=== PATIENT | female | born 1960 | race Two or more races ===

== ENCOUNTER 2024-05-06 21:45 | Inpatient (IN) | payer MEDICAID, SELFPAY ==
[2024-05-06] VITALS (7 sets, daily range): BP systolic 153–167; BP diastolic 85–94; BMI 28.4
--- NOTE | 2024-05-06 19:53 | ED.GENMED ---
History of Present Illness
General
Chief Complaint: Cold/Flu/URI Symptoms
Time Seen by Provider: 05/06/24 19:48
History of Present Illness
History of Present Illness:
64-year-old female with history of insulin-dependent diabetes presents to the emergency department for evaluation of dry cough, fever, and shortness of breath for the past 2 days. She also reports mild sore throat and stuffy nose. No ill contacts
at home. Denies chest pain or leg swelling. Cough is dry and nonproductive. Also notes nausea and vomiting, no diarrhea. Non-smoker
Review of Systems
Review of Systems
Allergies reviewed?: Yes
All Other Systems: ROS reviewed and negative except as documented in HPI and ROS
Phy Exam
Physical Exam
Physical Exam:
GEN: Ill-appearing, acute distress
Eyes: PERRLA, EOMs intact, no scleral icterus
HENT: NCAT, oral mucosa moist, no JVD
Lungs: Tachypneic with accessory muscle use, expiratory crackles heard throughout all lung garza, no wheezes
Cardiac: Tachycardic, regular, no murmur
Abdomen: S, NT, ND, NABS, no masses or hepatosplenomegaly
Neuro: AO x 3
MSK: No gross deformity or ecchymosis. No edema. No digital clubbing
Skin: No rashes, petechiae. Normal color, no pallor or jaundice.
Psych: Calm, cooperative, proper hygiene
Sepsis
Sepsis Screening
Sepsis Assessment: Severe Sepsis
Sepsis Screening: Worsening O2 Saturation
Sepsis Screen
Sepsis Screen: Severe Sepsis
Date: 05/06/24
Time: 22:05
Course
Orders/Labs/Results
Orders:
Orders
05/06/24 19:52
CR Chest Portable - 1 View Urgent
Comment:
Reason For Exam: SOB/hypoxia
Reason Study Needs to be Portable: Other
05/06/24 20:02
COVID-19 Antigen Urgent
Source: Nasal Swab
Complete Blood Count/With Diff Urgent
Lactic Acid Q4H
Comment: CANCEL 2nd LACTIC ACID IF 1st LACTIC ACID IS LESS THAN 2
Influenza A+B Rapid Molecular Urgent
CHANDNI Source: Nasal Swab
Specimen Description:
05/06/24 20:03
Comprehensive Metabolic Panel Urgent
NT-proBNP Urgent
Procalcitonin Urgent
PCT Algorithmm Indication: Respiratory
Troponin I Urgent
Blood Culture Routine
CHANDNI Source: Blood/Venous
Specimen Description:
Blood Culture Urgent
CHANDNI Source: Blood/Venous
Specimen Description:
05/06/24 20:42
Lactated Ringers [Lr] 1,000 ml IV BOLUS
05/06/24 20:49
Acetone [B-Hydroxybutyrate] Urgent
Venous Blood Gas Urgent
%Oxygen/Room Air: 79
05/06/24 20:55
Cefepime HCl [Maxipime] 2,000 mg IV NOW STA
Doxycycline [Vibramycin] 100 mg PO NOW STA
05/06/24 21:13
Electrocardiogram (*1) Urgent
Reason for Study: Shortness of Breath
EKG- Treatment ONCE
05/06/24 21:14
Doxycycline Hyclate [Vibramycin] 100 mg 0.9% Sodium Chloride 250 ml [Nss] 250 ml IV NOW
05/06/24 21:15
Acetaminophen [Tylenol] 1,000 mg PO NOW STA
05/06/24 21:27
Admit/Transfer Patient As Directed
Co-Sign Provider:
Level of Care: Inpatient admission
Assign to:: ICU
Physician / Group: hospitalist
Diagnosis: multifocal pneumonia
Reason for Hospitalization: hypoxic respiratory failure
Expected length of stay greater than two midnights?: Yes
ELOS- Estimated Length of Stay in days: 2
I certify the patient meets the requirements for IP care: Yes
PRN Pain Medication Management As Directed
May give lesser potent ordered pain med per pt: Yes
preference::
Protocol:: Medication orders for pain may be administered in a
manner that supports deferring to patient preference
when the pt is:
- Requesting an ordered lesser potent pain medication.
Least to most potent pain medications are defined
as: acetaminophen < NSAID < tramadol < opioids
(morphine, oxycodone, hydromorphone).
- Requesting a lesser dose of the same medication IF
ORDERED.
- Requesting a less intrusive route of administration
if both routes are prescribed by the provider (PO <
IV).
05/06/24 21:28
Code Status As Directed
Resuscitation Status: Full Code
05/06/24 22:00
Flush (0.9% Sodium Chloride) [Flush (Nss)] See Dose Instructions IV PER PROTOCOL
Abnormal Lab Results
05/06/24 05/06/24 05/06/24
20:02 20:03 20:49
WBC 11.1 H 10^3/uL
(4.8-10.8)
RBC 3.67 L 10^6/uL
(4.20-5.40)
Hgb 10.2 L g/dL
(12.0-16.0)
Hct 30.1 L %
(37.0-47.0)
MPV 10.9 H fL
(7.4-10.4)
Abs Immat Gran (auto) 0.1 H 10^3/uL
(0-0.05)
Absolute Neuts (auto) 8.6 H 10^3/uL
(1.4-6.5)
Absolute Monos (auto) 0.9 H 10^3/uL
(0.1-0.6)
Neutrophils % 77.2 H %
(42.2-75.2)
Lymphocytes % 13.6 L %
(20.5-51.1)
VBG pCO2 31 L mmHg
(35-48)
VBG pO2 81 H mmHg
(30-50)
VBG HCO3 18.8 L mmol/L
(22-27)
Sodium 132 L mmol/L
(135-145)
Carbon Dioxide 15 L mmol/L
(22-30)
BUN 39 H mg/dl
(7-17)
Creatinine 1.3 H mg/dL
(0.6-1.0)
Glucose 431 H mg/dl
(70-99)
Total Bilirubin 1.5 H mg/dl
(0.2-1.3)
AST 38 H U/L
(14-36)
Alkaline Phosphatase 132 H U/L
(38-126)
Troponin I 0.052 H* ng/ml
Procalcitonin 1.37 H ng/ml
(0.0-0.25)
B-Hydroxybutyrate 4.32 H mmol/L
(0.02-0.27)
05/06/24 20:02
05/06/24 20:03
Vital Signs
Initial and Last Documented VS:
Initial Vital Signs
Temp Pulse Resp BP Pulse Ox
101.4 F H 124 34 167/94 79
05/06/24 19:42 05/06/24 19:42 05/06/24 19:42 05/06/24 19:42 05/06/24 19:42
Last Documented Vital Signs
Temp Pulse Resp BP Pulse Ox
101.4 F H 119 31 163/89 92
05/06/24 19:42 05/06/24 21:30 05/06/24 21:30 05/06/24 21:09 05/06/24 21:30
MDM/Problems Addressed
MDM/Problems Addressed:
64-year-old female presents with fever and cough, she is found to have extensive bilateral pulmonary infiltrates, I favor this to be infectious in nature however cannot discount multifactorial etiology with pulmonary edema. She required increasing
oxygen demands and ultimately made the decision to pursue high flow nasal cannula at time of admission. Although she is not acidotic and insulin drip will be started for close glucose management, steroids withheld at this time due to hyperglycemia
with anion gap. Broad-spectrum IV antibiotics ordered. Do not suspect pulmonary embolism. Will be admitted to the intensive care unit for further management
*Critical Care Note
Total Time (30-74mins, 75-104mins- exclusive of procedures): 80 mins
comment:
Critical care time: 80 minutes
Critical care time was exclusive of: Separately billable procedures, treating other patients, and teaching time
Critical care was necessary to treat or prevent imminent or life-threatening deterioration of the following conditions: Respiratory failure with hypoxia, compensated metabolic acidosis
Critical care time spent personally by me on the following activities:
[x] Review of old charts
[x] Obtaining history from patient or surrogate
[x] Ordering and review of the laboratory studies
[x] Ordering and review of radiographic studies
[x] Ordering and performing treatments and interventions
[x] Patient patient's response to treatment
[x] Development of treatment plan with patient or surrogate
ED Attending Note
-
Portions of this chart may have been created with voice recognition software.� Occasional wrong word or��sound alike� substitutions may have occurred due to the inherent limitations of voice recognition software.
Discharge Plan
Departure
Patient Disposition: Admit
Date of Disposition: 05/06/24
Time of Disposition: 21:23
Admit to: ICU
Presentation/result/management discussed w/ accepting MD/DO: Hospitalist
Discharge Problem:
Bilateral pneumonia, Acute hypoxic respiratory failure, Acute hyperglycemia
Interventions
Interventions:
*Risk Screen - Suicide Last Done: 05/06/24 19:42
*General Assessment Last Done: 05/06/24 19:42
*Neglect/Abuse Screening Last Done: 05/06/24 19:42
ED- Pulmonary Assessment Last Done: 05/06/24 20:13
[2024-05-06 20:15] LABS: % Basophils 0.7 % (0-2); % Immature Granulocytes 0.5 % (0-0.5); % Lymphocytes 13.6 % (20.5-51.1); % Neutrophils 77.2 % (42.2-75.2); Absolute Basophils 0.1 10^3/uL (0-0.2); Absolute Immature Granulocytes 0.1 10^3/uL (0-0.05); Absolute Lymphocytes 1.5 10^3/uL (1.2-3.4); Absolute Monocytes 0.9 10^3/uL (0.1-0.6); Absolute Neutrophils 8.6 10^3/uL (1.4-6.5); Hematocrit 30.1 % (37.0-47.0); Hemoglobin 10.2 g/dL (12.0-16.0); Mean Corp Hgb Conc. 33.9 g/dL (33.0-37.0); Mean Corpuscular Hgb 27.8 pg (27.0-31.0); Mean Platelet Volume 10.9 fL (7.4-10.4); Nucleated Red Blood Cells % 0 %; Platelet Count 312 10^3/uL (130-400); Red Blood Cell Count 3.67 10^6/uL (4.20-5.40); Red Cell Dist. Width 14.3 % (11.5-14.5); White Blood Cell Count 11.1 10^3/uL (4.8-10.8)
[2024-05-06 20:29] LABS: Lactic Acid 1.6 mmol/L (0.7-2.0)
[2024-05-06 20:33] LABS: COVID-19 Antigen Negative (Negative)
[2024-05-06 20:37] LABS: ALT (SGPT) 35 U/L (0-35); AST (SGOT) 38 U/L (14-36); Albumin 4.1 g/dl (3.5-5.0); Alkaline Phosphatase 132 U/L (38-126); Blood Urea Nitrogen 39 mg/dl (7-17); Calcium 9.2 mg/dl (8.4-10.2); Carbon Dioxide 15 mmol/L (22-30); Chloride 98 mmol/L (98-107); Glucose 431 mg/dl (70-99); Potassium 4.8 mmol/L (3.5-5.1); Sodium 132 mmol/L (135-145); Total Bilirubin 1.5 mg/dl (0.2-1.3); Total Protein 7.4 g/dl (6.3-8.2); eGFR 45.92
[2024-05-06] MEDS: LR 1000 IV (20:50)
[2024-05-06 20:53] LABS: NT-proBNP 7690 pg/ml; Procalcitonin 1.37 ng/ml (0.0-0.25); Troponin I 0.052 ng/ml
[2024-05-06 20:59] LABS: Venous Blood Gas B.E. -5.3 mmol/L (-4 to +4); Venous Blood Gas HCO3 18.8 mmol/L (22-27); Venous Blood Gas O2 Sat % 97.6 %; Venous Blood Gas pCO2 31 mmHg (35-48); Venous Blood Gas pH 7.39 (7.32-7.43); Venous Blood Gas pO2 81 mmHg (30-50)
[2024-05-06 21:01] LABS: Venous Blood Gas O2 Therapy %Oxygen/Room Air 79
[2024-05-06] MEDS: MAXIPIME 2000 MG IV (21:05)
[2024-05-06] MEDS: TYLENOL 1000 MG PO (21:22)
[2024-05-06] MEDS: VIBRAMYCIN 260 MG IV (21:24)
[2024-05-06 21:26] LABS: B-Hydroxybutyrate 4.32 mmol/L (0.02-0.27)
--- NOTE | 2024-05-06 22:01 | HPS.HSE ---
Family Physician
-
Family Physician: Yenifer Trent
Chief Complaint
-
Cough and shortness of breath
History of Present Illness
Patient with a history of insulin-dependent diabetes and hypertension presents to the emergency department with history of cough fevers and shortness of breath.
Patient is a fairly poor historian due to the extremity of a condition. She stated that she has been coughing for a few days approximately 5 days. She also reports some vomiting and nausea. Patient denies any bloody or bilious emesis. She unable
to state how and when last she used any of her insulin. She unable to state exactly when was her last meal. She she stated that her symptoms started with some sore throat and scratchiness in the back of her throat. Then he developed into a
nonproductive cough. She still has a nonproductive cough. She then became more short of breath today and was brought to the emergency department. She denies any lower extremity swelling. Patient denies any history of heart attack CHF or
arrhythmia. She denies being on any immunosuppressant. Last hospitalization was in August and she was unable to state the reason for that hospitalization at this time. She is a non-smoker and has never been on oxygen.
On arrival emergency department the patient was hypoxic, she was febrile to 101, blood pressure was 160/90 and she was tachycardic to the 120s. ECG was sinus tachycardia to the 120s without acute ischemic changes. Initial troponin was 105. The
patient had a elevated BNP of 7600. Chest x-ray shows multifocal opacities bilaterally which were consistent with pulmonary edema. She had a white count of 11 hemoglobin of 10.2 and platelet of 312. Chemistries with a sodium of 132 potassium of
4.8 bicarb of 15 and a BUN of 39 with a creatinine of 1.3. Blood glucose was 4 and 31. Anion gap was 19. He had a elevated beta hydroxybutyrate level. COVID test was negative influenza was negative.
Medical History
Past Medical History
Past Medical History: Reports HTN and IDDM
Past Surgical History: Reports None
Social History
Tobacco: Non-smoker
Alcohol: None
Drug: None
Living: With Family
Employment: Not Employed
Family History
Family History: Not pertinent
Allergies / Home Medications
Allergies reflects when Allergies were last updated in [facility].
Home Medications with original date entered in [facility]
Allergy/Medication List:
Allergies
Allergy/AdvReac Type Severity Reaction Status Date / Time
No Known Allergies Allergy Unverified 05/06/24 19:42
If medication reconciliation has not been performed, why?: Medication List N/A
Review of Systems
-
History Source: Patient
Constitutional: Reports Fever
EENT: Reports Sore Throat
Respiratory: Reports Cough and Trouble Breathing
Cardiac: Reports No Symptoms
Abdomen/GI: Reports Nausea and Vomiting
: Reports No Symptoms
Musculoskeletal: Reports No Symptoms
Skin: Reports No Symptoms
Neurological: Reports No Symptoms
Endocrine: Reports No Symptoms
Hematologic/Lymphatic: Reports No Symptoms
Psych: Reports No Symptoms
Physical Exam
Vital Signs
Vital Signs
Temp Pulse Resp BP Pulse Ox
101.4 F H 119 31 163/89 92
05/06/24 19:42 05/06/24 21:30 05/06/24 21:30 05/06/24 21:09 05/06/24 21:30
Physical Exam
General: Respiratory Distress and Appears in Distress
HEENT: NormoCephalic, Anicteric, Atraumatic, PERRLA, [place] Conjunctivae and Oxygen
Respiratory: Accessory Resp Muscle Use and Decreased Breath Sounds
Cardiac: S1/S2, Regular Rhythm and Tachycardia
Breast: Deferred by me
GI: Soft, Non Tender, Non Distended and Normal Bowel Sounds
Rectal: Deferred by Provider
Genito-urinary: Deferred by me
Musculoskeletal: No Clubbing, No Cyanosis and No Edema
Skin: Warm
Neuro: AO x 3
Hematologic/Lymphatic: No Lymphadenopathy
Psych: Anxious
Laboratory Results
-
05/06/24 20:02
Laboratory Results
Lactic Acid 1.6 mmol/L (0.7-2.0) 05/06/24 20:02
Total Bilirubin 1.5 mg/dl (0.2-1.3) H 05/06/24 20:03
AST 38 U/L (14-36) H 05/06/24 20:03
ALT 35 U/L (0-35) 05/06/24 20:03
Alkaline Phosphatase 132 U/L (38-126) H 05/06/24 20:03
Troponin I 0.052 ng/ml H* 05/06/24 20:03
Data Reviewed
-
Diagnostic Radiology: Image Personally Visualized and interpreted and Report Reviewed by me
Medical Tests (Nuc Med, Echo, EKG etc): Image Personally Visualized and interpreted
Lab Data: Labs Reviewed by me
Old Records: Reviewed
Impression/Plan
-
IMPRESSION:
64-year-old [place]-speaking female with at least a past medical history of diabetes and hypertension presents to the emergency department with cough fevers chills and was found to be hypoxic on arrival requiring mid flow. She was febrile in the ED
and x-ray shows bilateral infiltrates. Procalcitonin is elevated. She has negative COVID and flu test. BNP is elevated. Troponin 0.05. Clinical picture is consistent with multifocal pneumonia as primary etiology.
PLAN:
1. Pneumonia - Multifocal Community acquired pneumonia w/ fever, cough, chills, hypoxia and pulmonary infiltrates. Elevated procal. Cannot rule out secondary pulmonary edema. Influenza negative, COVID -
- admit to icu
- placed on HI Keith due to high oxygen requirement and WOB. Satting 90% on 15 L with RR of 30.
- blood cultures, legionella ua, mrsa swab
- Cefepime 2g q8, doxycycline iv bid
- sputum culture
- incentive spirometry
- am xray to eval for volume and or effusion
- pt
2. Pulm Edema - Trop 0.05, BNP 7600. ECG sinus tach, no ischemia. No h/o CAD or CHF. No h/o arrhythmia. No peripheral edema. Hypoxia related myocardial injury and/or pneumonia w/ adjacent pericarditis/myocarditis. No chest pain.
- lasix 20mg iv now
- check crp/esr
- trend trop
- echo in am
3. DKA - Glucose 430, AG 19 bHB > 4. On insulin lantus 30 hs and novolin 10 ac at home. pH is 7.39. Likely in setting of acute infection.
- DKA protocol -> K is 4.8. Starting insulin gtt, NS w/ 20kcl at 100 ml/hr
- bmp in 3 hours then q 6.
- clears.
4. Hypertension - BP 165/90 in ED. Patient likley on nifedipine but unclear.
- labetolol prn for now
DVT PPX - lovenox sq
Code status - full code
[2024-05-06 22:17] LABS: Glucose - Point of Care 404 mg/dl (70-99)
[2024-05-06] MEDS: NOVOLIN R INSULIN INFUSION 100 IV (22:19)
[2024-05-06 23:00] LABS: Glucose - Point of Care 368 mg/dl (70-99)
[2024-05-06] MEDS: LASIX 20 MG IV (23:23)
[2024-05-06] MEDS: NSS with KCL 20 MEQ 1000 IV (23:23)
[2024-05-06] MEDS: ZOFRAN 4 MG IV (23:25)
--- NOTE | 2024-05-06 23:41 | PTCARENOTE ---
Patient received on stretcher. Had an episode of stress incontinence en route from ED d/t coughing. Patient able to stand and pivot from the stretcher to the bed in her room with minimal assistance. Undergarments removed/gown changed, patient
assisted with perineal care and settled into bed. Switched to high flow O2 by respiratory. Saturations 94-96%, no distress/increased WOB. Patient AOx3, STR, answering questions appropriately but a little forgetful. On high flow initially at 40L/100%
shortly thereafter switched to 50L/100% for some episodes of desaturating. Patient frequently pulling high flow nasal cannula from nose d/t moisture from the humidification. Tissue provided, instructed the patient to dab the cannula for comfort and
to not remove from her nostrils. Patient indicated understanding but needed frequent reinforcement during the admission questionnaire and assessment. Lungs diminished throughout, expiratory wheezes heard throughout. Abdomen SNT, + BS. Patient placed
on Purewick. Skin intact. PIV x2 in the L wrist and RAC, both positional. On insulin gtt, LR bolus completed from ED, NS with potassium hung. See worklist and MAR for additional details.
--- NOTE | 2024-05-06 23:43 | W.PN.SEPSIS ---
Sepsis
Vital Signs
Temp Pulse Resp BP Pulse Ox
101.4 F H 114 30 159/85 89
05/06/24 19:42 05/06/24 23:23 05/06/24 22:30 05/06/24 23:23 05/06/24 22:30
Physical Exam
Physical Exam:
A focused exam was performed after fluid resuscitation.
Capillary Refill
Bilateral Upper Extremity:
[place] Time: Less than 3 sec
Bilateral Lower Extremity:
[place] Time: Less than 3 sec
Pulse Evaluation
Bilateral Radial:
Pulse Evaluation: Present
Bilateral Dorsalis Pedis:
Pulse Evaluation: Present
[2024-05-07] VITALS (18 sets, daily range): BP systolic 118–189; BP diastolic 73–108; BMI 26.3
[2024-05-07 00:18] LABS: Glucose - Point of Care 222 mg/dl (70-99)
[2024-05-07] MEDS: D5/0.45%NSS with KCL 20 MEQ 1000 IV ×2 (00:39→09:23)
[2024-05-07 00:44] LABS: Blood Urea Nitrogen 39 mg/dl (7-17); Calcium 9.1 mg/dl (8.4-10.2); Carbon Dioxide 17 mmol/L (22-30); Chloride 102 mmol/L (98-107); Estimated Creatinine Clearance 47 ml/min; Glucose 186 mg/dl (70-99); Potassium 4.3 mmol/L (3.5-5.1); Sodium 137 mmol/L (135-145); eGFR 50.55
[2024-05-07 00:50] LABS: Erythrocyte Sed Rate 135 mm/hour (0-20)
[2024-05-07 00:56] LABS: Troponin I 0.069 ng/ml
[2024-05-07 01:01] LABS: C-Reactive Protein > 270.00 mg/L (0.0-10.00)
[2024-05-07 01:19] LABS: Glucose - Point of Care 164 mg/dl (70-99)
--- NOTE | 2024-05-07 02:10 | PTCARENOTE ---
No OUP since admit - patient had saturated stretcher en route to ICU from ED. Bladder scan 263, patient reminded of Purewick in place encouraged to void when able. Patient sleeping between care. High flow O2 maintained.
[2024-05-07 02:11] LABS: Glucose - Point of Care 168 mg/dl (70-99)
[2024-05-07 03:12] LABS: Glucose - Point of Care 180 mg/dl (70-99)
[2024-05-07 04:17] LABS: Glucose - Point of Care 184 mg/dl (70-99)
[2024-05-07 04:43] LABS: Venous Blood Gas B.E. -3.8 mmol/L (-4 to +4); Venous Blood Gas HCO3 21.5 mmol/L (22-27); Venous Blood Gas O2 Sat % 99.8 %; Venous Blood Gas pCO2 39 mmHg (35-48); Venous Blood Gas pH 7.35 (7.32-7.43); Venous Blood Gas pO2 123 mmHg (30-50)
[2024-05-07 04:44] LABS: Hematocrit 26.4 % (37.0-47.0); Hemoglobin 8.9 g/dL (12.0-16.0); Mean Corp Hgb Conc. 33.7 g/dL (33.0-37.0); Mean Corpuscular Hgb 27.7 pg (27.0-31.0); Mean Corpuscular Volume 82.2 fL (81.0-99.0); Mean Platelet Volume 10.7 fL (7.4-10.4); Platelet Count 281 10^3/uL (130-400); Red Blood Cell Count 3.21 10^6/uL (4.20-5.40); Red Cell Dist. Width 14.2 % (11.5-14.5); White Blood Cell Count 8.6 10^3/uL (4.8-10.8)
[2024-05-07 04:58] LABS: Blood Urea Nitrogen 35 mg/dl (7-17); Calcium 8.6 mg/dl (8.4-10.2); Carbon Dioxide 21 mmol/L (22-30); Chloride 102 mmol/L (98-107); Estimated Creatinine Clearance 51 ml/min; Glucose 184 mg/dl (70-99); Magnesium 2.1 mg/dl (1.6-2.3); Phosphorus 3.5 mg/dl (2.5-4.5); Sodium 137 mmol/L (135-145); eGFR 56.11
[2024-05-07] MEDS: DIPRIVAN 100 IV ×5 (05:05→23:23)
[2024-05-07 05:09] LABS: INR 1.12; PT 14.3 Sec (11.4-14.6)
[2024-05-07 05:10] LABS: APTT 40.1 Sec (23.4-35.0)
[2024-05-07 05:11] LABS: Troponin I 0.076 ng/ml
[2024-05-07] MEDS: SUBLIMAZE 50 MCG IV ×7 (05:15→11:06)
[2024-05-07] MEDS: SUBLIMAZE 100 IV ×3 (05:15→20:23)
--- NOTE | 2024-05-07 05:19 | W.PN.ANESINT ---
Anesthesia Intubation Note
- Intubation Note
Intubation Note:
Diagnosis: pneumonia
Blade: mac3
Tube Size: 8.0
Depth: 22
Side Taped: taped and secured by HOGSHEAD MAT INSPECTOR
Drugs Used: 50mg propofol, 100mg succ
Grade View: 1
EtCO2 Present: yes
Atraumatic: yes
Attempts: 1
Insertion Start and Stop Time:
SaO2 Pre: 89
SaO2 Post: 95
Glidescope Used: yes
Other Airway Adjustments: no
Pre-Oxygenated: yes
Portable Chest X-Ray:
RSI: no
Suctioned: yes
Bilateral Breath Sounds Confirmed: yes
Vent Settings:
Settings per ___Attending Physician
[2024-05-07 05:23] LABS: Glucose - Point of Care 167 mg/dl (70-99)
[2024-05-07] MEDS: VERSED 2 MG IV (05:31)
[2024-05-07] MEDS: LASIX 40 MG IV (05:41)
--- NOTE | 2024-05-07 05:41 | W.PN.UPDATE ---
Update Note
Progress Note Update
05/07/24
0500- Patient having increased difficulty maintaining oxygen saturation, now sustained 70s-80s% on non rebreather and max on high flow nasal cannula. HR 120s sustained sinus tachycardia and hypertensive SBP 170s. Patient has increased work of
breathing, tachypnea, diaphoretic, and looks exhausted. Reviewed plan of care including intubation with patient, she also agreed she was very tired. Sophia Gardiner CRNA called to bedside for intubation. Sedation initiated propofol gtt and fentanyl
gtt, prn versed for sedation/vent synchrony. Meredith was placed for BP monitoring and ABGs. Chest xray obtained and confirmed ETT placement.
Updated patient's daughter Cammy and answered all questions.
--- NOTE | 2024-05-07 05:47 | W.PN.UPDATE ---
Update Note
Progress Note Update
Operation/Procedure: left radial arterial line placement
Consent for operation or procedure: Emergent need due to patient condition - need for invasive monitoring per protocol
Indications: Hemodynamic monitoring
After properly positioning the patient's wrist in the standard fashion, the site was prepped and draped in a sterile fashion. The radial artery was entered, noting bright red, pulsatile flow. A guidewire was easily inserted, the needle removed,
and the catheter was then placed using the Seldinger technique. The guidewire was removed, with good flow present. The catheter was then connected to the transducer with a good waveform noted. The catheter was secured with an occlusive dressing
was placed after properly cleaning and prepping the site.
Complications: The patient tolerated the procedure well and no complications were noted.
Estimated Blood Loss: minimal
Plan: Arterial line to remain in place for hemodynamic monitoring.
--- NOTE | 2024-05-07 06:00 | PTCARENOTE ---
~0445 Patient SpO2 85% sustained on max high flow. Nonrebreather placed with no improvement, WELDER PRODUCTION LINE GAS to bedside, anesthesia and respiratory paged. Patient intubated @ 0500 with #8.0 ET tube 22 @ the R lip, copious clear oral secretions suctioned.
Patient hypertensive throughout intubation, sedated with propofol gtt, fentanyl IVP and gtt, and versed IVP per orders (see MAR). See worklist for titrations. Restrained B/L wrists for safety. Q1hr BG checks ongoing, L radial art line inserted by
WELDER PRODUCTION LINE GAS for hemodynamic monitoring, patient resting comfortably.
Attempted malik catheter insertion, however patient desaturated to 76% and became agitated. IV fentanyl push given, reported off to day shift RN.
[2024-05-07 06:27] LABS: Glucose - Point of Care 165 mg/dl (70-99)
--- NOTE | 2024-05-07 06:51 | W.PN.HOSP.TC ---
Today's Communication/Plan
-
cont abx
insulin gtt, vent mgmt as per ICU
daily weights I/O
ECHO
cardio Eval
Assessment / Plan
Assessment / Plan
Physical Exam
General: Intubated sedated
HEENT: NormoCephalic, Anicteric, Atraumatic, [place] pupils
Respiratory: Clear to auscultation on ventilator
Cardiac: Tachy no murmurs rubs gallops
GI: Soft, Non Tender, Non Distended and decreased bowel sounds
Musculoskeletal: No Clubbing, No Cyanosis, +2 Edema shins b/l
Skin: Warm
Neuro: Sedated
64 HTN DM with cough fevers chills and was found to be hypoxic on arrival requiring mid flow. She was febrile in the ED and x-ray shows bilateral infiltrates. Procalcitonin is elevated with associate mild MARTIN Cr 1.3. Negative COVID and flu test.
BNP elevated 7690. Troponin trended up 0.076. Admitted to ICU, patient progressively worsened overnight desaturating despite high flow nonrebreather increased work of breathing. Concern impending respiratory failure, Patient was subsequently
intubated overnight.
PLAN:
# Pneumonia - Multifocal Community acquired pneumonia w/ fever, cough, chills, hypoxia and pulmonary infiltrates. Elevated procal.
#Septic Shock briefly required pressor overnight since weaned off
- admitted to icu
- Intubated overnight 05/06-05/07 impending respiratory failure
- legionella strep ua neg, mrsa swab pending, blood culture results pending
- Cefepime 2g q8, doxycycline iv bid
- sputum culture pending
- CR chest appreciated acute pulm edema vs infectious
-Advertising Inserter eval appreciated
#Suspect new onset Heart Failure
# Pulm Edema
#Troponin elevation possibly non-[place] related
#No h/o CAD or CHF per family, was chest pain free per reports prior to intubation/sedation
- received IV Lasix
- crp/esr elevated
- trop trending up 0.076 continue trend to peak
- Follow up ECHO
-daily weights I/O
-Lemon for accurate I/O's
-Cardio eval requested
#Mild MARTIN possibly cardiorenal
improved following lasix
cont monitoring renal function
#DKA - Initial Glucose 430, AG 19 bHB > 4. Reportedly on insulin lantus 30 hs and novolin 10 ac at home. pH is 7.39.
-anion gap and glucose since improved with insulin gtt
-cont insulin gtt as per ICU
Hx Hypertension
-hold off on antihypertensives for now given recent shock weaned off pressor
-consider prn hydralazine IV if patient becomes hypertensive Systolic >140 or DBP>100
DVT PPX - lovenox sq
Code status - full code
Total Critical Care Time__50___ minutes. I was immediately available to the patient and staff. I personally examined, reviewed labs, diagnostic images/reports, interpretations, treatment plans, discussed patient care with other providers and
family (daughters Cammy and Kelsie, patient unable to make decisions at this time due to intubation/sedation), entered orders as appropriate and documented the medical record.
Anticipated Discharge: > 48 hours
Subjective/Interval History
-
Date of Service: May 07, 2024
Sedated intubated. Daughter Cammy present at bedside.
Objective Data
-
Labs:
Laboratory Results
05/06/24 05/06/24 05/06/24
20:02 20:03 22:00
WBC 11.1 H
Hgb 10.2 L
Hct 30.1 L
Plt Count 312
PT
INR
APTT
HCO3
Sodium 132 L Cancelled
Potassium 4.8 Cancelled
Chloride 98 Cancelled
Carbon Dioxide 15 L Cancelled
BUN 39 H Cancelled
Creatinine 1.3 H Cancelled
Glucose 431 H Cancelled
Calcium 9.2 Cancelled
Total Bilirubin 1.5 H
AST 38 H
ALT 35
Alkaline Phosphatase 132 H
05/07/24 05/07/24 05/07/24
00:19 04:34 06:08
WBC 8.6
Hgb 8.9 L
Hct 26.4 L
Plt Count 281
PT 14.3
INR 1.12
APTT 40.1 H
HCO3 Pending
Sodium 137 137
Potassium 4.3 4.0
Chloride 102 102
Carbon Dioxide 17 L 21 L
BUN 39 H 35 H
Creatinine 1.2 H 1.1 H
Glucose 186 H 184 H
Calcium 9.1 8.6
Total Bilirubin
AST
ALT
Alkaline Phosphatase
05/07/24 05/07/24 05/07/24
08:00 12:00 16:00
WBC
Hgb
Hct
Plt Count
PT
INR
APTT
HCO3
Sodium Pending Pending Pending
Potassium Pending Pending Pending
Chloride Pending Pending Pending
Carbon Dioxide Pending Pending Pending
BUN Pending Pending Pending
Creatinine Pending Pending Pending
Glucose Pending Pending Pending
Calcium Pending Pending Pending
Total Bilirubin
AST
ALT
Alkaline Phosphatase
05/07/24
20:00
WBC
Hgb
Hct
Plt Count
PT
INR
APTT
HCO3
Sodium Pending
Potassium Pending
Chloride Pending
Carbon Dioxide Pending
BUN Pending
Creatinine Pending
Glucose Pending
Calcium Pending
Total Bilirubin
AST
ALT
Alkaline Phosphatase
Vital Signs:
Vital Signs
Temp Pulse Resp BP Pulse Ox
97.9 F 101 18 136/80 98
05/07/24 05:00 05/07/24 05:41 05/07/24 02:15 05/07/24 05:41 05/07/24 05:42
I&O
05/05/24 05/06/24 05/07/24
06:59 06:59 06:59
Intake Total 1902.3 / 1902.3
Output Total 350 / 350
Balance 1552.3 / 1552.3
[2024-05-07 06:54] LABS: B.E. -2.1 mmol/L; HCO3 23.2 mmol/L (21-28); O2 Saturation % 98.4 % (94-98); PCO2 41 mmHg (32-35); PO2 86 mmHg (83-108); pH 7.36 (7.35-7.45)
[2024-05-07 07:05] LABS: Triglycerides 182 mg/dl (10-149)
[2024-05-07 07:12] LABS: Glucose - Point of Care 175 mg/dl (70-99)
[2024-05-07] MEDS: MAXIPIME 2000 MG IV (07:20)
[2024-05-07] MEDS: NSS (PRESERVATIVE FREE) 10 ML IV (07:21)
[2024-05-07] MEDS: PROTONIX IV 40 MG IV (07:21)
[2024-05-07] MEDS: STERILE WATER FOR INJECTION 10 ML IV ×3 (07:22→13:42)
--- NOTE | 2024-05-07 07:29 | CON.INTV ---
Consultation
Consultation Request
Date/Time Consultation Requested: 05/07/24
Date/Time Consultation Performed: 05/07/24
Performing Provider: Jo
Reason for Consultation: PNA, resp failure s/p intubation
Medical History
-
History of Present Illness:
Patient is a 64-year-old female with previous history of poorly controlled diabetes, hypertension presenting to the ER with history of cough, fevers and shortness of breath that started approximately 5 days prior to admission. Family states that
she generally is a poorly controlled diabetic, noncompliant with her diet or her medications. Her last hemoglobin A1c was 12. On arrival to the ER, she was noted to be hypoxemic, febrile to 101 Fahrenheit, blood pressure 160/90, tachycardic to the
120s. She was placed on high flow nasal cannula. proBNP was elevated with chest x-ray demonstrating multifocal opacities suspicious for pulmonary edema versus pneumonia. Overnight developed acute decompensation of respiratory failure requiring
intubation. She is admitted to ICU for further management.
Past Medical History
Past Medical History: Other (see list below)
Social History
Tobacco: Non-smoker
Alcohol: None
Drug: None
Family History
Family History: Reviewed & Not Pertinent
Allergies / Home Medications
Allergies
Allergy/AdvReac Type Severity Reaction Status Date / Time
No Known Allergies Allergy Unverified 05/06/24 19:42
Home Medications
�Medication �Instructions �Recorded �Confirmed �Last Taken �Type
aspirin 81 mg tablet mg PO DAILY 05/06/24 Unknown History
nifedipine 05/06/24 05/06/24 History
Review of Systems
-
Unable to Obtain full review of systems at this time due to: Patient Intubation
History Source: Family
Vitals / Labs / Diagnostic Testing
Vital Signs
Temp Pulse Resp BP Pulse Ox
97.9 F 83 16 121/73 92
05/07/24 05:00 05/07/24 07:00 05/07/24 07:00 05/07/24 07:00 05/07/24 07:17
Lab Data
05/07/24 04:34
Laboratory Results
05/07/24 05/07/24
04:34 06:08
PT 14.3
INR 1.12
APTT 40.1 H
pH 7.36
pCO2 41 H
pO2 86
HCO3 23.2
O2 Delivery Level
Microbiology
05/06/24 20:02 Nasal Swab Influenza Types A & B (AMIE) - Final
Negative for Influenza A & B, NAAT
Negative results must be combined with clinical observations
and patient history.
Nucleic Acid Amplification test (NAAT)performed on the
[employer] platform.
Diagnostic Testing:
Physical Exam
-
HEENT: Normocephalic, Anicteric and Moist Mucous Membranes
Cardiovascular: S1/S2 and Regular Rhythm
Respiratory: Clear (overall diminished) and Other (ETT)
GI: Soft, Non Distended and Non Tender
Neurology: Other (sedated/intubated)
Skin: Warm, Dry and Good Color
General: Comfortable and Other (critically ill)
Assessment
-
Patient is a 64-year-old female with previous history of poorly controlled diabetes, hypertension presenting to the ER with history of cough, fevers and shortness of breath that started approximately 5 days prior to admission. Family states that
she generally is a poorly controlled diabetic, noncompliant with her diet or her medications. Her last hemoglobin A1c was 12. On arrival to the ER, she was noted to be hypoxemic, febrile to 101 Fahrenheit, blood pressure 160/90, tachycardic to the
120s. She was placed on high flow nasal cannula. proBNP was elevated with chest x-ray demonstrating multifocal opacities suspicious for pulmonary edema versus pneumonia. Overnight developed acute decompensation of respiratory failure requiring
intubation. She is admitted to ICU for further management.
Acute hypoxic respiratory failure status post intubation
Multifocal pneumonia, suspect CAP, procal 1.37
Flu and COVID-negative
Acute pulmonary edema, proBNP 7600
Likely ARDS
DKA, AG 19
Acute Anemia, Hb 8.9 from 10.2--unclear cause, no baseline
MARTIN, creat 1.3
Mildly elevated liver enzymes: T bili, AST, alk phos
Elevated trops, likely non-AK related
Conditions present RECEPTIONIST AIRLINE LOUNGE
IDDM
HTN
Plan
Sedated/intubated, unable to assess
Denies pain at this time.
Pain/sedation: fent/prop, vec added for vent dyssynchrony
RASS goals: -4 to -5, she is currently -5
Hemodynamically stable, not requiring pressors.
Cardiac history reviewed--HTN
No prior ECHO available, new study pending
Resume home meds, gtt as needed
Monitor on telemetry
Oxygen needs: intubated following failure of HFNC
Vent setting reviewed: AC 650/16/80/10+, change vent settings to reduce vent dyss, plat pressures >30
ARDS is suspected
Prior history of lung disease: none, nonsmoker
Supplemental O2 as indicated to maintain sats > 89%
CXR/CT reviewed indicating bilateral opacities, could be CHF and PNA, given WBC/fever
Pull ETT back 1 cm
Bedside bronch to follow (see other note)
Check autoimmune panel
IV steroids added
NPO, resume diet when able
Placed DHT
Slight elevation in enzymes
Adjuster Leader recommendations
Aspiration precautions, HOB > 30 degrees
GI prophylaxis if indicated for mechanical ventilation >48 hours, prior history of GERD, stress ulcer formation in the critically ill
MARTIN present
Creat at baseline, no history of renal disease
Void trials
Follow urine output, critical I/Os
Replete electrolytes as needed
Can try another dose of lasix if still not improved
Fever and increased WBC on presentation, PNA suspected
Started on CFP/doxy, change to CTX/doxy
Cultures sent/pending
Blood
Sputum
Urine
MRSA
Follow fever trend, WBC count
Lactate not elevated on admission, <2
If not improving, may need to obtain CT CAP
CBC stable, no signs of bleeding or coagulopathy.
Hb has dropped from 10->8, monitor with further CBC
DVT prophylaxis as assessed based on risk, including mechanical SCDs
Can transfuse if indicated for Hb <7, plt < 10
INR WNL
H/o poorly controlled diabetes, can continue on home meds, SS for coverage
DKA initially, placed on insulin gtt, AG closed
Transition IV insulin to hyperglycemia protocol
HbA1c 11, 12 at home
Consult DM AIR GRINDER
Diagnostic Data
Chest X-Ray: 05/07/24- Endotracheal tube tip projects over the lower thoracic trachea, approximately 1.8 cm above the neda.
Bilateral airspace opacities, possible edema versus infectious etiology, overall similar appearance to prior.
05/06/24- Bilateral fluffy alveolar opacification with likely normal heart size. Most likely differential diagnostic possibility would be acute pulmonary edema. Infectious process would be less likely.
CT Scan:
Echo: pending
PFT's:
Reports and relevant images were personally reviewed.
-----
Critical care time 105 mins -- this includes review of history, physical exam, medications, hemodynamic/ventilator parameters, laboratory data, imaging and discussion with house staff, pharmacy, respiratory therapy, wood heel attacher, and nursing. (See
bronch note.)
[2024-05-07 08:07] LABS: Glucose - Point of Care 170 mg/dl (70-99)
[2024-05-07 08:22] LABS: Glycohemoglobin (HgbA1c) 11.1 % (4.0-5.6)
[2024-05-07 08:46] LABS: Blood Urea Nitrogen 35 mg/dl (7-17); Calcium 8.3 mg/dl (8.4-10.2); Carbon Dioxide 21 mmol/L (22-30); Chloride 104 mmol/L (98-107); Estimated Creatinine Clearance 45 ml/min; Glucose 168 mg/dl (70-99); Sodium 135 mmol/L (135-145); eGFR 56.11
[2024-05-07 09:03] LABS: Glucose - Point of Care 148 mg/dl (70-99)
--- NOTE | 2024-05-07 09:26 | PN.DE.MGMTRT ---
Insulin Management
- -
05/07/2024: Diabetes Management Consult
64 year old female with PMH: HTN, IDDM, presented to the ED w/hx of cough fevers and shortness of breath due to Multifocal Community acquired pneumonia with high oxygen requirements and eventually intubated this morning due to increased WOB. Was
noted for Hyperglycemia with a glucose level of 430 and in DKA with a GAP of 19. DKA protocol was initiated.
Prior to admission was taking Lantus 30 units and AC NovoLog 10 units.
Pt remains intubated and sedated, unable to interview at this time. Family at bedside, all questions answered.
Remains on DKA protocol, glucose range 148 to 184, requiring 1-2 units of insulin/hr
Recent BMP shows GAP of 15, there is a BMP pending at this time.
Will continue DKA protocol and reassess at next BMP for readiness to transition.
Discussed with ICU team, plan to start IV steroids and tube feeds. Will transition to glycemic protocol if GAP closed.
Prefer 2 BMPs of a closed GAP prior to making changes.
Diabetes History
- -
Type of Diabetes: 2 requiring insulin
Pre-Admission Diabetes Regimen
05/06/24 05/06/24 05/07/24
20:03 22:00 00:19
Creatinine 1.3 H Cancelled 1.2 H
05/07/24 05/07/24
04:34 07:59
Creatinine 1.1 H 1.1 H
Lab Results
Hemoglobin A1c 11.1 % (4.0-5.6) H 05/07/24 04:34
Insulin Pump Settings
IP Diabetes Regimen
05/06/24 05/06/24 05/06/24
20:03 22:00 22:16
Glucose 431 H Cancelled
POC Glucose 404 H
05/06/24 05/07/24 05/07/24
22:49 00:06 00:19
Glucose 186 H
POC Glucose 368 H 222 H
05/07/24 05/07/24 05/07/24
01:08 01:59 03:00
Glucose
POC Glucose 164 H 168 H 180 H
05/07/24 05/07/24 05/07/24
04:05 04:34 05:11
Glucose 184 H
POC Glucose 184 H 167 H
05/07/24 05/07/24 05/07/24
06:16 07:01 07:55
Glucose
POC Glucose 165 H 175 H 170 H
05/07/24 05/07/24
07:59 08:52
Glucose 168 H
POC Glucose 148 H
Patient Education
--- NOTE | 2024-05-07 10:00 | CON.CAR ---
Addendum entered and electronically signed by Farhad Sandoval DO 05/07/24 19:55:
I saw and examined the patient.
The Master Automotive Glass Technician's note was reviewed and I agree with the note.
Comment:
Plan:
Respiratory failure likely secondary to PNA/ARDS/Sepsis and possible component of HF
Agree with pulm toilet vent management. Pt is s/p bronch by pulm.
Cont broad spectrum abx.
Await cultures
Cont tx of poorly controlled DM with HbA1c 11.1 as per primary service.
HR and bp stable. Tachycardic likely secondary to febrile syndrome
Received lasix 40 mg IV X 1 early this AM. Monitor Is and Os and wts and cr. Monitor for response to diuretic therapy.
Echo unremarkable with normal EF and no valvular disease
Trop peak 0.07 likely nonMI troponin secondary to respiratory failure and sepsis.
Discussed with daughter at bedside.
Discussed with nursing.
Addendum entered and electronically signed by Lilian Hobbs PA-C 05/07/24 13:11:
Received cardiology record from Dr. Godoy at [facility]. Patient had echo in June 2020 EF was 65 to 70% with no significant valvular disease.
Original Note:
Consultation
Consultation Request
Date/Time Consultation Requested: 05/07/2024
Date/Time Consultation Performed: 05/07/2024
Requesting Provider: Hospitalist
Performing Provider: Lilian Hobbs PA-C for Dr. Farhad Sandoval
Reason for Consultation: Heart failure, abnormal troponin
Medical History
-
History of Present Illness:
Patient is a 64-year-old female with past medical history significant for diabetes and hypertension who presented to emergency department 05/06/2024 with fevers, chills and worsening cough. Patient was found to be hypoxic on arrival requiring mid
flow oxygen. She was found to have a fever of 101 on arrival. She tested negative for COVID and the flu. Chest x-ray with bilateral alveolar opacification. Pro-Moises elevated at 1.39. proBNP elevated at 7690. Abnormal troponin initially 0.052
and trending upward at time of this evaluation 0.076. EKG showed sinus tachycardia at 120 bpm without ischemic changes. Patient did receive a dose of IV Lasix in emergency department. Patient briefly required pressor now hypertensive. She
developed worsening hypoxemia requiring intubation on morning of 05/07/2024. She also got an additional 40 mg IV Lasix
Patient and her daughter have been dealing with upper respiratory symptoms for over a week. They were using [id number] cold and flu medication without improvement of symptoms. Patient's daughter reports she did see a dryer feeder in [place]
several years ago and was told she had no cardiac issues. Prior to her illness she was able to perform chores around the house and go up and down the stairs without cardiac symptoms.
History is limited given patient is currently intubated. Current information is obtained by review of prior medical records, coordinating providers and discussion with daughter.
Past medical history:
Hypertension
Insulin-dependent diabetes
Past Medical History
Past Medical History: Other (See HPI)
Past Surgical History: None
Social History
Tobacco: Non-Smoker
Alcohol: None
Drug: None
Living: With Family (daughter)
Employment: Not Employed
Family History
Family History: Unable to Obtain (patient intubated)
Allergies / Home Medications
Allergy/AdvReac Type Severity Reaction Status Date / Time
No Known Allergies Allergy Unverified 05/06/24 19:42
�Medication �Instructions �Recorded �Confirmed �Type
aspirin 81 mg tablet mg PO DAILY 05/06/24 History
nifedipine 05/06/24 History
Review of Systems
-
Unable to obtain full review of systems at this time due to: Patient Intubation
History Source: Family (daughter)
Physical Exam
Vital Signs
Temp Pulse Resp BP Pulse Ox
97.4 F 86 15 118/74 96
05/07/24 07:40 05/07/24 09:00 05/07/24 09:00 05/07/24 07:35 05/07/24 09:00
GEN: Intubated and sedated
HEENT: supple, anicteric, mmm
LUNGS: Rhonchorous breath sounds bilaterally anteriorly
CV: Reg, S1/S2, 1/6 syst murmur, no rub or gallop
ABD: soft, BS+, NT/ND
EXT: No edema, clubbing or cyanosis
NEURO: Gross non-focal
SKIN: No rash, warm, dry, pink
Lab Results
Troponin I 0.076 ng/ml H* 05/07/24 04:34
Jtd-R-Bccqhmgzlwg Pept 7690 pg/ml 05/06/24 20:03
Impression / Plan
-
Family Physician: Yenifer Trent
Marketing Education Teacher: Initial consult Dr. Sandoval
Impression:
Presented 05/06/2023 with cough, fevers, chills, sore throat x 5 days
Acute hypoxic respiratory failure requiring intubation on 05/07/2024
Pneumonia
Pulmonary edema
Acute heart failure with unknown ejection fraction, proBNP 7690
Abnormal troponin, suspect nonischemic myocardial injury secondary to above
DKA
MARTIN
Hypertension
Diabetes
Plan:
-Presented 05/06/2023 with cough, fevers, chills, respiratory symptoms x 1 week
-Acute hypoxic respiratory failure requiring intubation on 05/07/2024
-Suspected community acquired pneumonia. Flu and COVID-negative. Blood cultures pending. Antibiotics per primary team
-Briefly on pressors, currently off.
-Acute heart failure with unknown ejection fraction, proBNP 7690. Checks x-ray suspicious for pulmonary edema. Dry weight unknown. Patient received dose of IV Lasix 20 mg in emergency department and Lasix 40 mg x 1 05/07/24 in am. Monitor and
trend with diuresis
-Mildly elevated creatinine on arrival 1.3->1.1, improved w/ IV Lasix. Continue to monitor and trend
-Abnormal troponin, initial 0.052, upward trending 0.076. Trend to peak. Suspect nonischemic myocardial injury secondary to acute hypoxic respiratory failure, acute heart failure.
-Check echocardiogram
-DKA with blood glucose 431 on arrival. Poor compliance with diabetes, hemoglobin A1c 11.1%. Glucose improved with IV insulin gtt.
Daughter on clear name of dryer feeder she saw several years ago. Dr. Castillo was in [place]. She will try to find out the name.
HPI 05/07/2024:
Patient is a 64-year-old female with past medical history significant for diabetes and hypertension who presented to emergency department 05/06/2024 with fevers, chills and worsening cough. Patient was found to be hypoxic on arrival requiring mid
flow oxygen. She was found to have a fever of 101 on arrival. She tested negative for COVID and the flu. Chest x-ray with bilateral alveolar opacification. Pro-Moises elevated at 1.39. proBNP elevated at 7690. Abnormal troponin initially 0.052
and trending upward at time of this evaluation 0.076. EKG showed sinus tachycardia at 120 bpm without ischemic changes. Patient did receive a dose of IV Lasix in emergency department. Patient briefly required pressor now hypertensive. She
developed worsening hypoxemia requiring intubation on morning of 05/07/2024. She also got an additional 40 mg IV Lasix
Patient and her daughter have been dealing with upper respiratory symptoms for over a week. They were using [id number]-[id number]-vfqhlco cold and flu medication without improvement of symptoms. Patient's daughter reports she did see a dryer feeder in [place]
several years ago and was told she had no cardiac issues. Prior to her illness she was able to perform chores around the house and go up and down the stairs without cardiac symptoms.
History is limited given patient is currently intubated. Current information is obtained by review of prior medical records, coordinating providers and discussion with daughter.
Data Reviewed
-
EKG: Report Reviewed by me, Discussed with Physician, Discussed with Nurse and Discussed with Family
Radiology: Report Reviewed by me, Discussed with Physician, Discussed with Nurse and Discussed with Family
Labs: Labs Reviewed by me, Discussed with Physician, Discussed with Nurse and Discussed with Family
Old Records: Reviewed
[2024-05-07 10:12] LABS: Glucose - Point of Care 141 mg/dl (70-99)
[2024-05-07] MEDS: VIBRAMYCIN 260 MG IV (10:32)
--- NOTE | 2024-05-07 10:39 | PTCARENOTE ---
echo at bedside
[2024-05-07] MEDS: NORCURON 7 MG IV (11:14)
[2024-05-07 11:16] LABS: Glucose - Point of Care 110 mg/dl (70-99)
--- NOTE | 2024-05-07 11:35 | PTCARENOTE ---
Pt being bronched at bedside after requiring paralytic given dyssynchrony with vent this am despite sedation. BIS applied prior to paralytic bolus initially 84 but improved after additonal fentanyl bolus and max propofol and titration of fentanyl
gtt. tOF 8 4/4 prior to paralytic r ulnar nerve.
--- NOTE | 2024-05-07 11:35 | CM ---
CM met with dtr/Kelsie- Kelsie lives down the street from pt
Pt resides with other dtr/Cammy in a 2SH with 3STE
Full flight to 2nd floor
Pt is independent with her ADLs, no ADs
Has a working BGM and DM supplies provided through local [facility]
No financial insecurities
PCP- Yenifer Trent
Rx- [facility]
Pt in ICU- placed on vent this morning
SNF PAC list provided to dtr per request
Kelsie is a med-tech at [employer] and well versed with role of CM and community resources
CM will continue to follow for dc planning
Discharge Disposition- TBD
--- NOTE | 2024-05-07 12:00 | W.PN.UPDATE ---
Update Note
Progress Note Update
Procedure Note
Procedure: Diagnostic Bronchoscopy (at bedside)
Indication (s): Bilateral infiltrates, PNA
Postoperative Diagnosis: Bilateral infiltrates, CHF vs PNA
Time In: 11:45AM
Time Out: 12:00 PM
Anesthesia: sedation on in ICU
Informed consent obtained and placed in chart. Risks for procedure discussed.
Findings, Complications, and Other Information: Scope advanced through ET tube, lidocaine injected at neda. Visual inspection of bilateral lungs demonstrates no obvious endobronchial lesion or abnormalities. There is overlying erythema that is
mild and diffuse. Lavage completed at right lower lobe with significant collapse upon suctioning. Lavage then completed at left lower lobe with collection of chloe-colored sputum. This cleared upon subsequent washes. Sample collected and sent
for culture.
Samples taken: Left-sided bronchial washing
Estimated Blood Loss: None
Patient disposition: Remains intubated in ICU
Await final cultures.
...
[2024-05-07 12:50] LABS: Glucose - Point of Care 114 mg/dl (70-99)
[2024-05-07] MEDS: DECADRON 4 MG IV ×2 (12:50→19:45)
[2024-05-07] MEDS: REFRESH CELLUVISC GEL 1 DROPS OPHTH ×2 (12:50→19:45)
[2024-05-07 12:51] LABS: Hematocrit 28.7 % (37.0-47.0); Hemoglobin 9.7 g/dL (12.0-16.0)
--- NOTE | 2024-05-07 13:00 | PTCARENOTE ---
After pt bronched, systems reviewed. No changes. Multiple attempts at placing malik by 2 separate RN requiring 4 kits prior to successful placement. Insulin gtt now off given low blood sugar on glycemic protocol. Decision made after discussion
with pharmacist/compensation director/diabetes nurse practitioner that once tf and steroids initiated/repeat bmp drawn and sent and blood sugar above 140 will resume insulin drip. Otherwise please refer to worklist,
[2024-05-07 13:05] LABS: Blood Urea Nitrogen 34 mg/dl (7-17); Calcium 8.5 mg/dl (8.4-10.2); Carbon Dioxide 19 mmol/L (22-30); Chloride 104 mmol/L (98-107); Estimated Creatinine Clearance 45 ml/min; Glucose 131 mg/dl (70-99); Potassium 4.2 mmol/L (3.5-5.1); Sodium 138 mmol/L (135-145); eGFR 56.11
[2024-05-07 13:18] LABS: Troponin I 0.063 ng/ml
[2024-05-07] MEDS: SODIUM BICARBONATE 50 MEQ IV (13:41)
[2024-05-07] MEDS: ROCEPHIN 1000 MG IV (13:42)
[2024-05-07 14:19] LABS: Glucose - Point of Care 172 mg/dl (70-99)
--- NOTE | 2024-05-07 14:48 | PTCARENOTE ---
pt had episode of tachycardia 130-140s, bp tolerated, improved to low 100s without intervention. Dr Osorio aware. Pt also desat to 89-90% at rest without vent dyssynchrony, attempted repositioning and pt agitated sats dropped as low as 78%,
recovered after a few minutes with mult 100% rescue oxygen. Family at bedside and updated. They report pt is noncompliant at baseline with insulin/medication/diet.
[2024-05-07] MEDS: TYLENOL ORAL SOLUTION 650 MG TUBE (14:59)
[2024-05-07] MEDS: MIRALAX 17 GRAMS TUBE (14:59)
[2024-05-07 15:41] LABS: Rheumatoid Agglutinin Less Than 10 IU (<10 IU)
[2024-05-07 15:52] LABS: Glucose - Point of Care 247 mg/dl (70-99)
--- NOTE | 2024-05-07 16:14 | PTCARENOTE ---
systems reviewed. no new changes
[2024-05-07 16:29] LABS: B.E. -5.7 mmol/L; HCO3 19.3 mmol/L (21-28); O2 Saturation % 95.6 % (94-98); PCO2 35 mmHg (32-35); PO2 64 mmHg (83-108); pH 7.35 (7.35-7.45)
[2024-05-07 16:49] LABS: Blood Urea Nitrogen 34 mg/dl (7-17); Calcium 8.3 mg/dl (8.4-10.2); Carbon Dioxide 18 mmol/L (22-30); Chloride 104 mmol/L (98-107); Estimated Creatinine Clearance 49 ml/min; Glucose 271 mg/dl (70-99); Potassium 4.4 mmol/L (3.5-5.1); Sodium 133 mmol/L (135-145); eGFR > 60.00
[2024-05-07 16:51] LABS: Glucose - Point of Care 233 mg/dl (70-99)
[2024-05-07] MEDS: LOVENOX 40 MG SC (17:14)
[2024-05-07 17:30] LABS: Glucose - Point of Care 221 mg/dl (70-99)
[2024-05-07 18:32] LABS: Glucose - Point of Care 239 mg/dl (70-99)
[2024-05-07 19:05] LABS: B.E. -3.2 mmol/L; HCO3 20.9 mmol/L (21-28); O2 Saturation % 98.5 % (94-98); O2 Therapy %Oxygen/Room Air 60; PCO2 33 mmHg (32-35); PO2 73 mmHg (83-108); pH 7.41 (7.35-7.45)
[2024-05-07 19:50] LABS: Glucose - Point of Care 198 mg/dl (70-99)
[2024-05-07] MEDS: VIBRAMYCIN 100 MG TUBE (20:23)
[2024-05-07] MEDS: NOVOLIN R INSULIN INFUSION 100 IV (20:30)
--- NOTE | 2024-05-07 20:30 | PTCARENOTE ---
rec'd patient, assessment as documented. b/l soft wrist restraints in place. BIS reading between 40-60. pt arouses to deep stimulation when turning. SR on monitor with PVCs. #8 ETT, 22 at lip, ETT adjusted. vent settings: AC 20/380/5/60%. oral care
and suction provided. coarse breath sounds noted. DHT to L nare with TF infusing. + bowel sounds. malik intact, malik care done. CHG wipes provided. pt repositioned. protective foam applied to sacrum. glycemic protocol continues. arterial line
leveled and zeroed. prop/fent gtts infusing for sedation. care ongoing.
[2024-05-07 20:38] LABS: Glucose - Point of Care 136 mg/dl (70-99)
[2024-05-07 20:40] LABS: Blood Urea Nitrogen 37 mg/dl (7-17); Calcium 8.6 mg/dl (8.4-10.2); Carbon Dioxide 19 mmol/L (22-30); Chloride 104 mmol/L (98-107); Estimated Creatinine Clearance 45 ml/min; Glucose 199 mg/dl (70-99); Sodium 136 mmol/L (135-145); eGFR 56.11
[2024-05-07 21:42] LABS: Glucose - Point of Care 160 mg/dl (70-99)
[2024-05-07 22:41] LABS: Glucose - Point of Care 176 mg/dl (70-99)
[2024-05-08] MEDS: SUBLIMAZE 50 MCG IV ×3 (00:25→19:45)
[2024-05-08 00:33] LABS: Glucose - Point of Care 321 mg/dl (70-99)
--- NOTE | 2024-05-08 00:41 | PTCARENOTE ---
Addendum entered by Leah Newton RN 05/08/24 01:23:
ICU BUSINESS PROCESS REPRESENTATIVE made aware
Addendum entered by Leah Newton RN 05/08/24 01:10:
VAT placed new PIV, BGM rechecked and was 335, insulin gtt and TF restarted at this time.
Original Note:
BGM from 176 to 321, IV site assessed and noted to be leaking, insulin gtt and TF on hold until new line obtained. VAT paged.
[2024-05-08 00:44] LABS: Blood Urea Nitrogen 39 mg/dl (7-17); Calcium 8.5 mg/dl (8.4-10.2); Carbon Dioxide 17 mmol/L (22-30); Chloride 104 mmol/L (98-107); Estimated Creatinine Clearance 45 ml/min; Glucose 315 mg/dl (70-99); Sodium 137 mmol/L (135-145); eGFR 56.11
[2024-05-08 01:14] LABS: Glucose - Point of Care 335 mg/dl (70-99)
[2024-05-08 01:26] VITALS: BMI 26.6
[2024-05-08 01:45] LABS: Hepatitis C Antibody Negative (Negative)
[2024-05-08 02:13] LABS: Glucose - Point of Care 364 mg/dl (70-99)
[2024-05-08] MEDS: SUBLIMAZE 100 IV ×4 (02:46→22:48)
[2024-05-08] MEDS: DIPRIVAN 100 IV ×4 (02:47→19:46)
--- NOTE | 2024-05-08 03:03 | PTCARENOTE ---
based on this hour sugar, increase insulin gtt to 22ml/hr per protocol. hard limit on pump 20.1ml/hr, pharmacy called and discussed issue, ICU BUILDING MAINTENANCE SUPERVISOR made aware and told this RN to keep pump at 20ml/hr and continue with hourly checks at this time.
[2024-05-08] MEDS: DECADRON 4 MG IV (03:04)
[2024-05-08 03:05] LABS: Glucose - Point of Care 286 mg/dl (70-99)
[2024-05-08 04:04] LABS: % Basophils 0.1 % (0-2); % Immature Granulocytes 0.4 % (0-0.5); % Lymphocytes 6.5 % (20.5-51.1); % Monocytes 1.6 % (1.7-9.3); % Neutrophils 91.4 % (42.2-75.2); Absolute Lymphocytes 0.4 10^3/uL (1.2-3.4); Absolute Monocytes 0.1 10^3/uL (0.1-0.6); Absolute Neutrophils 6.2 10^3/uL (1.4-6.5); Hematocrit 25.4 % (37.0-47.0); Hemoglobin 8.6 g/dL (12.0-16.0); Mean Corp Hgb Conc. 33.9 g/dL (33.0-37.0); Mean Corpuscular Hgb 27.6 pg (27.0-31.0); Mean Corpuscular Volume 81.4 fL (81.0-99.0); Mean Platelet Volume 11.2 fL (7.4-10.4); Nucleated Red Blood Cells % 0 %; Platelet Count 278 10^3/uL (130-400); Red Blood Cell Count 3.12 10^6/uL (4.20-5.40); Red Cell Dist. Width 14.3 % (11.5-14.5); White Blood Cell Count 6.8 10^3/uL (4.8-10.8)
[2024-05-08 04:06] LABS: B.E. -3.7 mmol/L; HCO3 19.9 mmol/L (21-28); Ionized Calcium 1.19 mMOL/L (1.15-1.33); O2 Saturation % 94.9 % (94-98); PCO2 30 mmHg (32-35); Potassium 3.5 mMOL/L (3.5-5.1); Sodium 135 mMOL/L (136-145); pH 7.43 (7.35-7.45)
--- NOTE | 2024-05-08 04:10 | PTCARENOTE ---
AM labs and ABG sent. oral care provided. pt with liquid BM overnight. prop/fent/glycemic gtts continue. ETT adjusted. RASS continues to be -4/-5. care ongoing.
[2024-05-08 04:20] LABS: PO2 57 mmHg (83-108)
[2024-05-08] MEDS: NOVOLIN R INSULIN INFUSION 100 IV ×2 (04:26→18:03)
[2024-05-08 04:30] LABS: Blood Urea Nitrogen 42 mg/dl (7-17); Calcium 8.8 mg/dl (8.4-10.2); Carbon Dioxide 19 mmol/L (22-30); Chloride 106 mmol/L (98-107); Estimated Creatinine Clearance 49 ml/min; Glucose 217 mg/dl (70-99); Potassium 3.6 mmol/L (3.5-5.1); Sodium 138 mmol/L (135-145); eGFR > 60.00
[2024-05-08 05:09] LABS: Glucose - Point of Care 159 mg/dl (70-99)
[2024-05-08 05:58] LABS: Glucose - Point of Care 113 mg/dl (70-99)
[2024-05-08 06:00] VITALS: BMI 26.6
[2024-05-08 07:04] LABS: Glucose - Point of Care 87 mg/dl (70-99)
--- NOTE | 2024-05-08 07:18 | W.PN.INTV ---
Today's Communication / Plan
Recommendations
Culture negative, PNA less likely
CHF more likely, given history by daughter -- patient with excessive water intake/LE and eye swelling
Add daily lasix
Wean vent settings as tolerated, reviewed with RT
Stop IV steroids
Can likely stop abx
Serologies still pending
DM management per DIE ATTACHER
Assessment
-
Patient is a 64-year-old female with previous history of poorly controlled diabetes, hypertension presenting to the ER with history of cough, fevers and shortness of breath that started approximately 5 days prior to admission. Family states that
she generally is a poorly controlled diabetic, noncompliant with her diet or her medications. Her last hemoglobin A1c was 12. On arrival to the ER, she was noted to be hypoxemic, febrile to 101 Fahrenheit, blood pressure 160/90, tachycardic to the
120s. She was placed on high flow nasal cannula. proBNP was elevated with chest x-ray demonstrating multifocal opacities suspicious for pulmonary edema versus pneumonia. Overnight developed acute decompensation of respiratory failure requiring
intubation. She is admitted to ICU for further management.
Acute hypoxic respiratory failure status post intubation
Acute pulmonary edema, suspect acute HFpEF, proBNP 7600
Bilateral infiltrates, procal 1.37 s/p bronch 05/07/24, culture negative
Flu and COVID-negative
Likely ARDS
DKA, AG 19
Acute Anemia, Hb 8.9 from 10.2--unclear cause, no baseline
MARTIN, creat 1.3
Mildly elevated liver enzymes: T bili, AST, alk phos
Elevated trops, likely non-MA related
Fevers, resolved
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
IDDM
HTN
Plan
Sedated/intubated, unable to assess
Denies pain at this time.
Pain/sedation: fent/prop, vec added for vent dyssynchrony
RASS goals: -4 to -5, she is currently -5
Plan to liberate sedation today, stop paralytic
Hemodynamically stable, not requiring pressors.
Cardiac history reviewed--HTN
No prior ECHO available, new study showing normal function
Resume home meds, gtt as needed
Monitor on telemetry
Cards eval noted
Daughter states patient drank excessive amounts of water/had LE/ocular swelling
Lasix daily added
Oxygen needs: intubated following failure of HFNC
Vent setting reviewed: AC 350/16/80/10+, improved, wean Fio2 and PEEP settings/reviewed with RT
ARDS is suspected
Prior history of lung disease: none, nonsmoker
Supplemental O2 as indicated to maintain sats > 89%
CXR/CT reviewed indicating bilateral opacities, could be CHF and PNA, given WBC/fever
s/p Bedside bronch 05/07, no abnormalities, cultures are prelim negative thus far
Check autoimmune panel-pending
Stop IV steroids
NPO, DHT w/ TFs
Slight elevation in enzymes
Peanut Separator recommendations
Aspiration precautions, HOB > 30 degrees
GI prophylaxis if indicated for mechanical ventilation >48 hours, prior history of GERD, stress ulcer formation in the critically ill
MARTIN present
Creat at baseline, no history of renal disease
Void trials
Follow urine output, critical I/Os
Replete electrolytes as needed
Fever and increased WBC on presentation, possible PNA suspected
Started on CFP/doxy, change to CTX/doxy
Cultures sent/pending
Blood neg
Sputum prelim neg
Urine
MRSA neg
Follow fever trend, WBC count
Lactate not elevated on admission, <2
CBC stable, no signs of bleeding or coagulopathy.
Hb has dropped from 10->8, monitor with further CBC
DVT prophylaxis as assessed based on risk, including mechanical SCDs
Can transfuse if indicated for Hb <7, plt < 10
INR WNL
H/o poorly controlled diabetes, can continue on home meds, SS for coverage
DKA initially, placed on insulin gtt, AG closed
Transition IV insulin to hyperglycemia protocol
HbA1c 11, 12 at home
Consult DM DIE ATTACHER
Diagnostic Data
Chest X-Ray: 05/07/24- Endotracheal tube tip projects over the lower thoracic trachea, approximately 1.8 cm above the neda.
Bilateral airspace opacities, possible edema versus infectious etiology, overall similar appearance to prior.
05/06/24- Bilateral fluffy alveolar opacification with likely normal heart size. Most likely differential diagnostic possibility would be acute pulmonary edema. Infectious process would be less likely.
CT Scan:
Echo: pending
PFT's:
Reports and relevant images were personally reviewed.
-----
Critical care time 45 mins -- this includes review of history, physical exam, medications, hemodynamic/ventilator parameters, laboratory data, imaging and discussion with house staff, pharmacy, respiratory therapy, remnant sorter, and nursing.
Subjective Dataa
Subjective Data
Date of Service:
Date of Service: May 08, 2024
Chief Complaint: Newspaper Deliverer Follow Up
Subjective:
No new events ON, remains critically ill
Desat noted wtih turning, remains on 80%/10+
Daughter at bedside
Objective Data
Data Reviewed
Vital Signs / I&O / Oxygen:
Vital Signs
Temp Pulse Resp BP Pulse Ox
96.6 F L 62 18 151/87 100
05/08/24 03:30 05/08/24 06:00 05/08/24 06:00 05/07/24 22:20 05/08/24 06:00
Intake and Output
05/07/24 05/08/24 05/09/24
06:59 06:59 06:59
Intake Total 1902.3 / 2080.1 2874.6 / 2874.6
Output Total 350 / 350 1295 / 1295
Balance 1552.3 / 1730.1 1579.6 / 1579.6
SaO2 [A/C] 100
SaO2 100
Nasal Cannula flow liters per 8
minute
Physical Exam
General: Other (critically ill, intubated)
HEENT: Normocephalic, Anicteric and Moist Mucous Membranes
Cardiovascular: S1-S2, Regular Rhythm and Peripheral Edema
Respiratory: Crackles, Non-Labored Respirations and ET Tube
GI: Soft, Non Distended, Non Tender and NG Tube
Neurology: Lethargic (opens eyes), Non Verbal and Other (sedated)
Skin: Warm and Dry
Labs/Micro/Reports
Lab Data
05/08/24 03:51
Laboratory Results
05/07/24 05/07/24 05/08/24
15:54 18:58 03:59
pH 7.35 7.41 7.43
pCO2 35 33 30 L
pO2 64 L 73 L 57 L*
HCO3 19.3 L 20.9 L 19.9 L
O2 Delivery Level %oxygen/room air 60
Microbiology
05/06/24 20:03 Blood/Venous Blood Culture - Preliminary
No Growth in 24 hours- Final report to follow
05/06/24 20:03 Blood/Venous Blood Culture - Preliminary
No Growth in 24 hours- Final report to follow
05/07/24 12:15 Bronch Washing Gram Stain - Preliminary
05/07/24 07:59 Sputum Gram Stain - Preliminary
05/07/24 07:59 Urine Legionella Urinary Antigen - Final
Negative for Legionella pneumophila Serogroup 1 antigen.
A negative result does not rule out the possiblity of
Legionella infection due to other serogroups or species of
Legionella. Clinical correlation is recommended.
05/07/24 07:59 Urine Streptococcus pneumoniae Antigen (M - Final
Negative for Streptococcus pneumoniae antigen.
A negative result does not exclude infection with
Streptococcus pneumoniae. Clinical correlation is
recommended.
05/06/24 20:02 Nasal Swab Influenza Types A & B (AMIE) - Final
Negative for Influenza A & B, NAAT
Negative results must be combined with clinical observations
and patient history.
Nucleic Acid Amplification test (NAAT)performed on the
[employer] platform.
--- NOTE | 2024-05-08 07:48 | W.PN.HOSP.TC ---
Today's Communication/Plan
-
cont abx
insulin gtt, vent mgmt as per ICU
daily weights I/O
Diuresis
Assessment / Plan
Assessment / Plan
Physical Exam
General: Intubated on sedation
HEENT: NormoCephalic, Anicteric, Atraumatic, Pinpoint pupils
Respiratory: Clear to auscultation on ventilator
Cardiac: Tachy no murmurs rubs gallops
GI: Soft, Non Tender, Non Distended and decreased bowel sounds
Musculoskeletal: No Clubbing, No Cyanosis, +2 Edema shins b/l
Skin: Warm
Neuro: Awake spontaneous eye movements noncommunicative at time of evaluation
64 HTN DM with cough fevers chills and was found to be hypoxic on arrival requiring mid flow. She was febrile in the ED and x-ray shows bilateral infiltrates. Procalcitonin is elevated with associate mild MARTIN Cr 1.3. Negative COVID and flu test.
BNP elevated 7690. Troponin trended up 0.076. Admitted to ICU, patient progressively worsened overnight desaturating despite high flow nonrebreather increased work of breathing. Concern impending respiratory failure, Patient was subsequently
intubated overnight.
PLAN:
# Pneumonia - Multifocal Community acquired pneumonia w/ fever, cough, chills, hypoxia and pulmonary infiltrates. Elevated procal.
#Septic Shock briefly required pressor overnight since weaned off
- admitted to icu
- Intubated overnight 05/06-05/07 impending respiratory failure
- legionella strep ua neg, mrsa swab pending, blood culture results pending
- Cefepime 2g q8 switched to ceftriaxone 1g daily, doxycycline iv bid switched to oral w/ placement NGT
- sputum culture pending
- CR chest appreciated acute pulm edema vs infectious
-Credentials Specialist eval appreciated
#Suspect new onset Heart Failure
# Pulm Edema
#Troponin elevation possibly non-[place] related
#No h/o CAD or CHF per family, was chest pain free per reports prior to intubation/sedation
- agree 40 mg Lasix IV daily as per ICU
- crp/esr elevated
- trop trending up 0.076 continue trend to peak
- ECHO appreciated preserved EF 55-60% no significant valve abn's
-daily weights I/O
-Lemon for accurate I/O's
-Cardio eval appreciated
#Mild MARTIN possibly cardiorenal
resolved following diuresis
cont monitoring renal function
#DKA - Initial Glucose 430, AG 19 bHB > 4. Reportedly on insulin lantus 30 hs and novolin 10 ac at home. pH is 7.39.
-anion gap and glucose since improved with insulin gtt
-cont insulin gtt as per ICU
Hx Hypertension
-hold off on antihypertensives for now given recent shock weaned off pressor
-consider prn hydralazine IV if patient becomes hypertensive Systolic >140 or DBP>100
DVT PPX - lovenox sq
Code status - full code
Total Critical Care Time__40___ minutes. I was immediately available to the patient and staff. I personally examined, reviewed labs, diagnostic images/reports, interpretations, treatment plans, discussed patient care with other providers and
family (daughters Cammy and Kelsie, patient unable to make decisions at this time due to intubation/sedation), entered orders as appropriate and documented the medical record.
Anticipated Discharge: > 48 hours
Subjective/Interval History
-
Date of Service: May 08, 2024
remains intubated on sedation but spontaneous eye movements noted awake appears comfortable noncommunicative during evaluation. Responsive to verbal physical stimuli. Per daughter at bedside patient had communicated that she was cold earlier.
Objective Data
-
Labs:
Laboratory Results
05/07/24 05/08/24 05/08/24
19:43 00:16 03:51
WBC 6.8
Hgb 8.6 L
Hct 25.4 L
Plt Count 278
HCO3
Sodium 136 137 138
Potassium 4.0 5.0 3.6 D
Chloride 104 104 106
Carbon Dioxide 19 L 17 L 19 L
BUN 37 H 39 H 42 H
Creatinine 1.1 H 1.1 H 1.0
Glucose 199 H 315 H 217 H
Calcium 8.6 8.5 8.8
05/08/24 05/08/24 05/08/24
03:59 08:00 12:00
WBC
Hgb
Hct
Plt Count
HCO3 19.9 L
Sodium Pending Pending
Potassium Pending Pending
Chloride Pending Pending
Carbon Dioxide Pending Pending
BUN Pending Pending
Creatinine Pending Pending
Glucose Pending Pending
Calcium Pending Pending
Vital Signs:
Vital Signs
Temp Pulse Resp BP Pulse Ox
97.6 F 62 18 151/87 100
05/08/24 07:36 05/08/24 06:00 05/08/24 06:00 05/07/24 22:20 05/08/24 06:00
I&O
05/07/24 05/08/24 05/09/24
06:59 06:59 06:59
Intake Total 1902.3 / 2080.1 2874.6 / 2874.6
Output Total 350 / 350 1295 / 1295
Balance 1552.3 / 1730.1 1579.6 / 1579.6
[2024-05-08 07:53] LABS: Glucose - Point of Care 227 mg/dl (70-99)
[2024-05-08] MEDS: MIRALAX 17 GRAMS TUBE (07:57)
[2024-05-08] MEDS: PROTONIX IV 40 MG IV (07:57)
[2024-05-08] MEDS: REFRESH CELLUVISC GEL 1 DROPS OPHTH (07:57)
[2024-05-08] MEDS: NSS (PRESERVATIVE FREE) 10 ML IV (07:57)
--- NOTE | 2024-05-08 08:00 | PTCARENOTE ---
received report from night RN, dual RN med rec, pt RASS -2, 2 perrla, +cough/gag/corneal, B/L wrist restraints, NS with PVC's, weak pedals + radials, race edema to LE's, L radial A-line zeroed, 8 ETT 22 @ lip 18/380/10/100% coarse throughout, L DHT
62cm, TF osmolite 35/25 (goal), round belly BSx4, malik draining yellow output, IV in RFA, R hand, LAC, L hand, insulin 0.6ml, fent 150/15ml, prop 40/16.7ml, otherwise refer to documentation.
[2024-05-08 08:22] LABS: Glucose - Point of Care 127 mg/dl (70-99)
--- NOTE | 2024-05-08 08:41 | PN.DE.MGMTRT ---
Insulin Management
- -
05/08/2024: Diabetes Management Consult Follow up
Patient with w/hx of cough fevers and shortness of breath. PMH: HTN, IDDM. Patient with multifocal Community acquired pneumonia, respiratory failure, now intubated. Was noted for Hyperglycemia with a glucose level of 430 and in DKA with a GAP of
19. DKA protocol was initiated.
Prior to admission was taking Lantus 30 units and AC NovoLog 10 units, A1C 11.1%, cr 1.3, eGFR 45.92.
Pt remains intubated and sedated, unable to interview at this time.
05/07 patient receiving Dexamethasone Q 12, glucose up to 300's. Was on DKA now on glycemic protocol. Nursing reports there was a period of time insulin was not infusing, when rectified hourly insulin increased up to 22 units. Now glucose @ 127,
insulin infusion @ 8 units per hour. Tube feeds @ 35/ hr. Will start novolog 4 units Q 6 hours to decrease IV insulin requirements.
Discussed with patients nurse.
Diabetes History
- -
Type of Diabetes: 1
Pre-Admission Diabetes Regimen
05/07/24 05/07/24 05/07/24
07:59 12:38 15:54
Creatinine 1.1 H 1.1 H 1.0
05/07/24 05/08/24 05/08/24
19:43 00:16 03:51
Creatinine 1.1 H 1.1 H 1.0
Lab Results
Hemoglobin A1c 11.1 % (4.0-5.6) H 05/07/24 04:34
Insulin Pump Settings
IP Diabetes Regimen
05/07/24 05/07/24 05/07/24
07:59 08:52 10:01
Glucose 168 H
POC Glucose 148 H 141 H
05/07/24 05/07/24 05/07/24
11:04 12:38 14:07
Glucose 131 H
POC Glucose 110 H 114 H 172 H
05/07/24 05/07/24 05/07/24
15:41 15:54 16:40
Glucose 271 H
POC Glucose 247 H 233 H
05/07/24 05/07/24 05/07/24
17:18 18:20 19:39
Glucose
POC Glucose 221 H 239 H 198 H
05/07/24 05/07/24 05/07/24
19:43 20:27 21:31
Glucose 199 H
POC Glucose 136 H 160 H
05/07/24 05/08/24 05/08/24
22:30 00:16 00:21
Glucose 315 H
POC Glucose 176 H 321 H
05/08/24 05/08/24 05/08/24
01:03 02:02 02:53
Glucose
POC Glucose 335 H 364 H 286 H
05/08/24 05/08/24 05/08/24
03:51 03:57 04:58
Glucose 217 H
POC Glucose 227 H 159 H
05/08/24 05/08/24 05/08/24
05:46 06:54 08:11
Glucose
POC Glucose 113 H 87 127 H
Patient Education
[2024-05-08 09:33] VITALS: BP 161/93
[2024-05-08 09:34] LABS: Blood Urea Nitrogen 43 mg/dl (7-17); Calcium 8.6 mg/dl (8.4-10.2); Carbon Dioxide 20 mmol/L (22-30); Chloride 106 mmol/L (98-107); Estimated Creatinine Clearance 45 ml/min; Glucose 126 mg/dl (70-99); Potassium 4.7 mmol/L (3.5-5.1); Sodium 137 mmol/L (135-145); eGFR 56.11
--- NOTE | 2024-05-08 09:35 | W.PN.CARDCBS ---
Today's Communication / Plan
-
TTE with NL biV function and no significant valve disease
In an attempt to improve her respiratory status with increase Lasix to 40mg BID
Monitor daily weights, Cr, lytes
Impression / Plan
-
Family Physician: Yenifer Trent
Transition Specialist: Initial consult Dr. Sandoval
Impression:
Presented 05/06/2023 with cough, fevers, chills, sore throat x 5 days
Acute hypoxic respiratory failure requiring intubation on 05/07/2024
Pneumonia
Pulmonary edema
Acute heart failure with preserved ejection fraction, proBNP 7690
Abnormal troponin, suspect nonischemic myocardial injury secondary to above
DKA
MARTIN
Hypertension
Diabetes
Plan:
-Presented 05/06/2023 with cough, fevers, chills, respiratory symptoms x 1 week
-Acute hypoxic respiratory failure requiring intubation on 05/07/2024
-Suspected community acquired pneumonia. Flu and COVID-negative. Blood cultures pending. Antibiotics per primary team
-Briefly on pressors, currently off
-Likely some component of CHF given elevated proBNP 7690 although TTE unremarkable
-Increase lasix to 40mg BID in an attempt to improve her respiratory status
-Follow daily weights and Cr/electrolytes
-Abnormal troponin, peaked at 0.076. Trend to peak. Suspect nonischemic myocardial injury secondary to acute hypoxic respiratory failure, acute heart failure.
Discussed with her daughter who is at bedside
HPI 05/07/2024:
Patient is a 64-year-old female with past medical history significant for diabetes and hypertension who presented to emergency department 05/06/2024 with fevers, chills and worsening cough. Patient was found to be hypoxic on arrival requiring mid
flow oxygen. She was found to have a fever of 101 on arrival. She tested negative for COVID and the flu. Chest x-ray with bilateral alveolar opacification. Pro-Moises elevated at 1.39. proBNP elevated at 7690. Abnormal troponin initially 0.052
and trending upward at time of this evaluation 0.076. EKG showed sinus tachycardia at 120 bpm without ischemic changes. Patient did receive a dose of IV Lasix in emergency department. Patient briefly required pressor now hypertensive. She
developed worsening hypoxemia requiring intubation on morning of 05/07/2024. She also got an additional 40 mg IV Lasix
Patient and her daughter have been dealing with upper respiratory symptoms for over a week. They were using [id number] cold and flu medication without improvement of symptoms. Patient's daughter reports she did see a surgical supplies sterilizer in [place]
several years ago and was told she had no cardiac issues. Prior to her illness she was able to perform chores around the house and go up and down the stairs without cardiac symptoms.
History is limited given patient is currently intubated. Current information is obtained by review of prior medical records, coordinating providers and discussion with daughter.
Progress Note - Transition Specialist
Subjective
Date of Service: May 08, 2024
NAOE. Remains intubated, on 100% FiO2 this AM. Off pressors.
Objective
Labs:
05/08/24 03:51
Labs
Hgb 8.6 g/dL (12.0-16.0) L 05/08/24 03:51
Hct 25.4 % (37.0-47.0) L 05/08/24 03:51
Plt Count 278 10^3/uL (130-400) 05/08/24 03:51
PT 14.3 Sec (11.4-14.6) 05/07/24 04:34
INR 1.12 05/07/24 04:34
APTT 40.1 Sec (23.4-35.0) H 05/07/24 04:34
Sodium 137 mmol/L (135-145) 05/08/24 08:10
Potassium 4.7 mmol/L (3.5-5.1) D 05/08/24 08:10
BUN 43 mg/dl (7-17) H 05/08/24 08:10
Creatinine 1.1 mg/dL (0.6-1.0) H 05/08/24 08:10
Glucose 126 mg/dl (70-99) H 05/08/24 08:10
Troponins
05/06/24 05/07/24 05/07/24
20:03 00:19 04:34
Troponin I 0.052 H* 0.069 H* D 0.076 H*
05/07/24
12:38
Troponin I 0.063 H*
Vital Signs and I&O:
Vital Signs
Temp Pulse Resp BP Pulse Ox
97.6 F 62 18 151/87 100
05/08/24 07:36 05/08/24 06:00 05/08/24 06:00 05/07/24 22:20 05/08/24 09:08
Vital Signs
Temp Pulse Resp BP Pulse Ox
97.6 F 62 18 151/87 100
05/08/24 07:36 05/08/24 06:00 05/08/24 06:00 05/07/24 22:20 05/08/24 09:08
Intake & Output
05/06/24 05/07/24 05/08/24 05/09/24
06:59 06:59 06:59 06:59
Intake Total 1902.3 / 2080.1 2874.6 / 2966.9 351.7 / 351.7
Output Total 350 / 350 1295 / 1320 85 / 85
Balance 1552.3 / 1730.1 1579.6 / 1646.9 266.7 / 266.7
Physical Exam
Physical Exam
Gen: NAD
HEENT: NC/AT, sclera anicteric
Neck: No JVD
CV: RRR, NL s1/s2
Lungs: Mechanically ventilated
Abd: S/ND
: Lemon with salvador urine.
Ext: No LE edema
Skin: Warm, dry.
Neuro: Sedated
[2024-05-08] MEDS: LASIX 40 MG IV ×2 (09:36→22:40)
[2024-05-08] MEDS: KCL ELIXIR 40 MEQ TUBE (09:37)
[2024-05-08 10:10] LABS: Glucose - Point of Care 117 mg/dl (70-99)
[2024-05-08] MEDS: VIBRAMYCIN TUBE (10:24)
[2024-05-08] MEDS: VIBRAMYCIN 100 MG TUBE ×2 (11:46→20:51)
--- NOTE | 2024-05-08 12:00 | PTCARENOTE ---
systems reviewed, during rounds daughter was present and updated, lasix and K ordered by , pt BP elevated hydralazine ordered by , taylor, K, hydralazine given per order, CHEMICAL RADIATION TECHNICIAN [place] ordered subQ insulin, drips titrated per worklist,
otherwise refer to documentation.
[2024-05-08 12:14] LABS: Glucose - Point of Care 115 mg/dl (70-99)
[2024-05-08] MEDS: APRESOLINE 5 MG IV ×2 (12:28→20:20)
[2024-05-08] MEDS: NOVOLOG FLEXPEN 4 UNITS SC (12:30)
[2024-05-08 13:07] LABS: Blood Urea Nitrogen 46 mg/dl (7-17); Calcium 8.9 mg/dl (8.4-10.2); Carbon Dioxide 19 mmol/L (22-30); Chloride 107 mmol/L (98-107); Estimated Creatinine Clearance 45 ml/min; Glucose 92 mg/dl (70-99); Sodium 138 mmol/L (135-145); eGFR 56.11
[2024-05-08 13:44] LABS: Glucose - Point of Care 80 mg/dl (70-99)
[2024-05-08] MEDS: ROCEPHIN 1000 MG IV (14:10)
[2024-05-08] MEDS: STERILE WATER FOR INJECTION 10 ML IV (14:10)
[2024-05-08 15:40] LABS: Glucose - Point of Care 191 mg/dl (70-99)
[2024-05-08 16:12] VITALS: BP 146/87
[2024-05-08 16:26] LABS: Glucose - Point of Care 164 mg/dl (70-99)
--- NOTE | 2024-05-08 17:30 | PTCARENOTE ---
systems reviewed, R midline placed and verified by XR, all IV tubing and drips replaced, IV's removed on R arm, otherwise refer to documentation
[2024-05-08] MEDS: LOVENOX 40 MG SC (17:52)
[2024-05-08 18:18] LABS: Glucose - Point of Care 90 mg/dl (70-99)
[2024-05-08] MEDS: NOVOLOG FLEXPEN SC ×2 (18:42→23:27)
--- NOTE | 2024-05-08 20:00 | PTCARENOTE ---
rec`d pt at 1900 intubated, awakens to verbal stimuli. follows commands, generalized weakness. SR on monitor w/ pvcs. hr 80s-110s. doppler pulses. #8ett @22. vent settings 18/380/ 60%/ 8 of peep. coarse lung sounds. glycemic protocol continued. left
nare dobhoff w/ tf. osmo 1.2 35 w/ 25 flush. mailk draining clear yellow urine. restraints as ordered. sacral foam for protection. left r a line, rt picc, left FA, left AC. prop, fent, and insulin running. family at bedside, call bolaños in reach. safe
environment maintained.
[2024-05-08 20:30] LABS: Glucose - Point of Care 147 mg/dl (70-99)
[2024-05-08 22:33] LABS: Glucose - Point of Care 136 mg/dl (70-99)
[2024-05-08 23:34] LABS: Glucose - Point of Care 101 mg/dl (70-99)
[2024-05-09 00:44] LABS: ds-DNA Ab, IgG Reflex To Titer 16 IU (0-24)
[2024-05-09 00:58] LABS: Glucose - Point of Care 94 mg/dl (70-99)
--- NOTE | 2024-05-09 01:18 | PTCARENOTE ---
pt reassessed. no changes in pt assessment. call bolaños in reach.
[2024-05-09] MEDS: DIPRIVAN 100 IV ×2 (02:01→07:41)
[2024-05-09 02:05] LABS: ANA, IgG Reflex to HEp-2 None Detected (None Detected)
[2024-05-09 02:07] LABS: Glucose - Point of Care 168 mg/dl (70-99)
[2024-05-09 03:19] LABS: HCO3 21.9 mmol/L (21-28); O2 Saturation % 99.7 % (94-98); PCO2 33 mmHg (32-35); PO2 150 mmHg (83-108); pH 7.43 (7.35-7.45)
[2024-05-09 03:22] LABS: Glucose - Point of Care 109 mg/dl (70-99)
[2024-05-09 03:22] LABS: Hematocrit 24.9 % (37.0-47.0); Hemoglobin 8.5 g/dL (12.0-16.0); Mean Corp Hgb Conc. 34.1 g/dL (33.0-37.0); Mean Corpuscular Hgb 27.9 pg (27.0-31.0); Mean Corpuscular Volume 81.6 fL (81.0-99.0); Platelet Count 318 10^3/uL (130-400); Red Blood Cell Count 3.05 10^6/uL (4.20-5.40); Red Cell Dist. Width 14.6 % (11.5-14.5); White Blood Cell Count 8.5 10^3/uL (4.8-10.8)
[2024-05-09 03:26] LABS: O2 Therapy 60%
[2024-05-09 03:42] LABS: Blood Urea Nitrogen 46 mg/dl (7-17); Calcium 8.2 mg/dl (8.4-10.2); Carbon Dioxide 19 mmol/L (22-30); Chloride 109 mmol/L (98-107); Estimated Creatinine Clearance 49 ml/min; Glucose 110 mg/dl (70-99); Phosphorus 4.9 mg/dl (2.5-4.5); Sodium 142 mmol/L (135-145); eGFR > 60.00
[2024-05-09 05:12] LABS: Glucose - Point of Care 109 mg/dl (70-99)
[2024-05-09 06:00] VITALS: BMI 26.8
--- NOTE | 2024-05-09 07:17 | W.PN.HOSP.TC ---
Today's Communication/Plan
-
monitor off abx
cont diuresis
weaning/breathing trial as per ICU
glycemic control
blood pressure control
Assessment / Plan
Assessment / Plan
Physical Exam
General: Intubated on sedation
HEENT: NormoCephalic, Anicteric, Atraumatic, Pinpoint pupils
Respiratory: Clear to auscultation on ventilator
Cardiac: Tachy no murmurs rubs gallops
GI: Soft, Non Tender, Non Distended and decreased bowel sounds
Musculoskeletal: No Clubbing, No Cyanosis, +2 Edema shins b/l
Skin: Warm
Neuro: Awake spontaneous eye movements, communicative with head gestures
64 HTN DM with cough fevers chills and was found to be hypoxic on arrival requiring mid flow. She was febrile in the ED and x-ray shows bilateral infiltrates. Procalcitonin is elevated with associate mild MARTIN Cr 1.3. Negative COVID and flu test.
BNP elevated 7690. Troponin trended up 0.076. Admitted to ICU, patient progressively worsened overnight desaturating despite high flow nonrebreather increased work of breathing. Concern impending respiratory failure, Patient was subsequently
intubated overnight.
PLAN:
# Pneumonia - Multifocal Community acquired pneumonia w/ fever, cough, chills, hypoxia and pulmonary infiltrates. Elevated procal.
#Septic Shock briefly required pressor overnight since weaned off
- admitted to icu
- Intubated overnight 05/06-05/07 impending respiratory failure
- legionella strep ua neg, mrsa swab pending, blood culture results pending
- Cefepime 2g q8 switched to ceftriaxone 1g daily, doxycycline iv bid switched to oral w/ placement NGT, since discontinued consistently afebrile no leukocytosis monitoring off abx
- sputum culture No growth
- CR chest appreciated acute pulm edema vs infectious
-Solder Leveler [employer] Boards eval appreciated weaning trial SBT
#Suspect new onset Heart Failure
# Pulm Edema
#Troponin elevation possibly non-ID related
#No h/o CAD or CHF per family, was chest pain free per reports prior to intubation/sedation
- agree 40 mg Lasix IV daily as per ICU
- crp/esr elevated
- trop trending up 0.076 continue trend to peak
- ECHO appreciated preserved EF 55-60% no significant valve abn's
-daily weights I/O
-Lemon for accurate I/O's
-Cardio eval appreciated Lasix IV 40 mg BID
#Mild MARTIN possibly cardiorenal
resolved following diuresis
cont monitoring renal function
#DKA - Initial Glucose 430, AG 19 bHB > 4. Reportedly on insulin lantus 30 hs and novolin 10 ac at home. pH is 7.39.
-anion gap and glucose since improved with insulin gtt
-cont insulin as per ICU, DM OUTBOUND TELEMARKETING REPRESENTATIVE
-DM OUTBOUND TELEMARKETING REPRESENTATIVE eval appreciated
Hx Hypertension
-cont Lasix as above
-Metoprolol as per ICU
DVT PPX - lovenox sq
Code status - full code
Total Critical Care Time__40___ minutes. I was immediately available to the patient and staff. I personally examined, reviewed labs, diagnostic images/reports, interpretations, treatment plans, discussed patient care with other providers and
family (daughters Cammy and Kelsie, patient unable to make decisions at this time due to intubation/sedation), entered orders as appropriate and documented the medical record.
Anticipated Discharge: > 48 hours
Subjective/Interval History
-
Date of Service: May 09, 2024
Awake responsive. Remains intubated on sedation
Objective Data
-
Labs:
Laboratory Results
05/09/24
03:10
WBC 8.5
Hgb 8.5 L
Hct 24.9 L
Plt Count 318
HCO3 21.9
Sodium 142
Potassium 4.0
Chloride 109 H
Carbon Dioxide 19 L
BUN 46 H
Creatinine 1.0
Glucose 110 H
Calcium 8.2 L
Vital Signs:
Vital Signs
Temp Pulse Resp BP Pulse Ox
99.1 F 68 18 146/87 99
05/09/24 00:00 05/09/24 05:00 05/09/24 05:00 05/08/24 16:12 05/09/24 05:00
I&O
05/08/24 05/09/24 05/10/24
06:59 06:59 06:59
Intake Total 2874.6 / 2966.9 2042.9 / 2042.9
Output Total 1295 / 1320 1285 / 1285
Balance 1579.6 / 1646.9 757.9 / 757.9
[2024-05-09] MEDS: SUBLIMAZE 100 IV ×2 (07:18→16:07)
--- NOTE | 2024-05-09 07:31 | W.PN.INTV ---
Today's Communication / Plan
Recommendations
Doing better, wean vent settings, reviewed with RT
Wean sedation, seroquel added
SBT today if doing well
Agree with increased lasix dose, cards following
Stop abx and observe off
TFs via DHT
Transition off insulin gtt per DM FOOD CHECKERS AND CASHIERS SUPERVISOR
Daughter updated/participated on rounds
Assessment
-
Patient is a 64-year-old female with previous history of poorly controlled diabetes, hypertension presenting to the ER with history of cough, fevers and shortness of breath that started approximately 5 days prior to admission. Family states that
she generally is a poorly controlled diabetic, noncompliant with her diet or her medications. Her last hemoglobin A1c was 12. On arrival to the ER, she was noted to be hypoxemic, febrile to 101 Fahrenheit, blood pressure 160/90, tachycardic to the
120s. She was placed on high flow nasal cannula. proBNP was elevated with chest x-ray demonstrating multifocal opacities suspicious for pulmonary edema versus pneumonia. Overnight developed acute decompensation of respiratory failure requiring
intubation. She is admitted to ICU for further management.
Acute hypoxic respiratory failure status post intubation
Acute pulmonary edema, suspect acute HFpEF, proBNP 7600
Bilateral infiltrates, procal 1.37 s/p bronch 05/07/24, culture negative
Flu and COVID-negative
Likely ARDS
DKA, AG 19
Acute Anemia, Hb 8.9 from 10.2--unclear cause, no baseline
MARTIN, creat 1.3
Mildly elevated liver enzymes: T bili, AST, alk phos
Elevated trops, likely non-DE related
Fevers, resolved
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
IDDM
HTN
Plan
Sedated/intubated, able to nod yes/no
Denies pain at this time.
Pain/sedation: fent/prop, stop vec, wean sedation
Will add seroquel with plan to stop prop
RASS goals: 0
Precedex if needed
Hemodynamically stable, not requiring pressors.
Cardiac history reviewed--HTN
No prior ECHO available, new study showing normal function
Resume home meds, gtt as needed
Monitor on telemetry
Cards tonja noted
Daughter states patient drank excessive amounts of water/had LE/ocular swelling
Lasix daily added, increased to BID
Oxygen needs: intubated following failure of HFNC
Vent setting reviewed: AC 350/16/80/10+, improved, wean Fio2 and PEEP settings/reviewed with RT
ARDS is suspected
Prior history of lung disease: none, nonsmoker
Supplemental O2 as indicated to maintain sats > 89%
CXR/CT reviewed indicating bilateral opacities, could be CHF and PNA, given WBC/fever
s/p Bedside bronch 05/07, no abnormalities, cultures are prelim negative thus far
Check autoimmune panel-ERNESTO/RF/dsDNA neg
Off IV steroids
NPO, DHT w/ TFs
Slight elevation in enzymes
Diesel Inspector recommendations
Aspiration precautions, HOB > 30 degrees
GI prophylaxis if indicated for mechanical ventilation >48 hours, prior history of GERD, stress ulcer formation in the critically ill
MARTIN present, improving
Creat at baseline, no history of renal disease
Void trials
Follow urine output, critical I/Os
Replete electrolytes as needed
Fever and increased WBC on presentation, possible PNA suspected/culture negative to date
Started on CFP/doxy, change to CTX/doxy--stop abx altogether today
Cultures sent and negative thus far, PNA less likely
Blood neg
Sputum prelim neg
MRSA neg
Follow fever trend, WBC count
Lactate not elevated on admission, <2
Less likely infection, stop abx and observe
CBC stable, no signs of bleeding or coagulopathy.
Hb has dropped from 10->8, monitor with further CBC
DVT prophylaxis as assessed based on risk, including mechanical SCDs
Can transfuse if indicated for Hb <7, plt < 10
INR WNL
H/o poorly controlled diabetes, can continue on home meds, SS for coverage
DKA initially, placed on insulin gtt, AG closed
Transition IV insulin to hyperglycemia protocol
HbA1c 11, 12 at home
Consult DM FOOD CHECKERS AND CASHIERS SUPERVISOR
Transition off gtt
Diagnostic Data
Chest X-Ray: 05/07/24- Endotracheal tube tip projects over the lower thoracic trachea, approximately 1.8 cm above the neda.
Bilateral airspace opacities, possible edema versus infectious etiology, overall similar appearance to prior.
05/06/24- Bilateral fluffy alveolar opacification with likely normal heart size. Most likely differential diagnostic possibility would be acute pulmonary edema. Infectious process would be less likely.
CT Scan:
Echo: pending
PFT's:
Reports and relevant images were personally reviewed.
-----
Critical care time 45 mins -- this includes review of history, physical exam, medications, hemodynamic/ventilator parameters, laboratory data, imaging and discussion with house staff, pharmacy, respiratory therapy, associate director financial aid, and nursing.
Subjective Dataa
Subjective Data
Date of Service:
Date of Service: May 09, 2024
Chief Complaint: Customer Care Associate Follow Up
Subjective:
no acute events ON, remains intubated/critically ill
more awake while lowering sedation
vent settings are decreased
Objective Data
Data Reviewed
Vital Signs / I&O / Oxygen:
Vital Signs
Temp Pulse Resp BP Pulse Ox
99.1 F 68 18 146/87 99
05/09/24 00:00 05/09/24 05:00 05/09/24 05:00 05/08/24 16:12 05/09/24 05:00
Intake and Output
05/08/24 05/09/24 05/10/24
06:59 06:59 06:59
Intake Total 2874.6 / 2966.9 2042.9 / 2042.9
Output Total 1295 / 1320 1285 / 1285
Balance 1579.6 / 1646.9 757.9 / 757.9
SaO2 [A/C] 99
SaO2 99
Nasal Cannula flow liters per 8
minute
Physical Exam
General: Comfortable and Other (critically ill, intubated)
HEENT: Normocephalic, Anicteric and Moist Mucous Membranes
Cardiovascular: S1-S2, Regular Rhythm and Peripheral Edema
Respiratory: Clear, Non-Labored Respirations and ET Tube
GI: Soft, Non Distended, Non Tender and NG Tube
Neurology: Awake, Alert, Non Verbal and Other (nodes head yes/no)
Skin: Warm and Dry
Labs/Micro/Reports
Lab Data
05/09/24 03:10
05/09/24 03:10
Laboratory Results
05/09/24
03:10
pH 7.43
pCO2 33
pO2 150 H
HCO3 21.9
O2 Delivery Level 60%
Microbiology
05/06/24 20:03 Blood/Venous Blood Culture - Preliminary
No Growth in 48 hours- Final report to follow
05/06/24 20:03 Blood/Venous Blood Culture - Preliminary
No Growth in 48 hours- Final report to follow
05/07/24 07:59 Sputum Respiratory Culture - Preliminary
Usual Respiratory [place]
05/07/24 07:59 Sputum Gram Stain - Preliminary
05/07/24 12:15 Bronch Washing Respiratory Culture - Preliminary
NO GROWTH
05/07/24 12:15 Bronch Washing Gram Stain - Preliminary
05/07/24 00:20 Nose MRSA Screen - Final
No Methicillin Resistant Staphylococcus aureus isolated.
05/07/24 07:59 Urine Legionella Urinary Antigen - Final
Negative for Legionella pneumophila Serogroup 1 antigen.
A negative result does not rule out the possiblity of
Legionella infection due to other serogroups or species of
Legionella. Clinical correlation is recommended.
05/07/24 07:59 Urine Streptococcus pneumoniae Antigen (M - Final
Negative for Streptococcus pneumoniae antigen.
A negative result does not exclude infection with
Streptococcus pneumoniae. Clinical correlation is
recommended.
05/06/24 20:02 Nasal Swab Influenza Types A & B (AMIE) - Final
Negative for Influenza A & B, NAAT
Negative results must be combined with clinical observations
and patient history.
Nucleic Acid Amplification test (NAAT)performed on the
[employer] platform.
[2024-05-09 07:38] LABS: Glucose - Point of Care 88 mg/dl (70-99)
[2024-05-09] MEDS: PROTONIX IV 40 MG IV (07:55)
[2024-05-09] MEDS: NSS (PRESERVATIVE FREE) 10 ML IV (07:55)
[2024-05-09] MEDS: LASIX 40 MG IV ×2 (07:55→16:09)
[2024-05-09] MEDS: KCL ELIXIR 40 MEQ TUBE (07:55)
[2024-05-09] MEDS: MIRALAX 17 GRAMS TUBE (07:55)
--- NOTE | 2024-05-09 08:17 | PN.DE.MGMTRT ---
Insulin Management
- -
05/09/2024: Diabetes Management Consult Follow up
Patient with w/hx of cough fevers and shortness of breath. PMH: HTN, IDDM. Patient with multifocal Community acquired pneumonia, respiratory failure, now intubated. Was noted for Hyperglycemia with a glucose level of 430 and in DKA with a GAP of
19. DKA protocol was initiated.
Prior to admission was taking Lantus 30 units and AC NovoLog 10 units, A1C 11.1%, cr 1.3, eGFR 45.92.
Pt remains intubated and sedated, unable to interview at this time. Daughter at bedside, states she knows her mother was eating a lot of junk, she is unsure if she was taking her insulin.
05/09 Steroids have been stopped, glucose 80 to 136 requiring .5 to 6 units of insulin per hour. Tube feeds continue at 35/hr. Will transition to 30 units lantus now and daily. Insulin infusion off 2 hours after lantus given. Will start moderate
corrective q 6 hours.
Discussed with patients nurse.
Diabetes History
- -
Type of Diabetes: 2 requiring insulin
Pre-Admission Diabetes Regimen
05/08/24 05/08/24 05/09/24
08:10 12:09 03:10
Creatinine 1.1 H 1.1 H 1.0
Lab Results
Hemoglobin A1c 11.1 % (4.0-5.6) H 05/07/24 04:34
Insulin Pump Settings
IP Diabetes Regimen
05/08/24 05/08/24 05/08/24
08:10 08:11 09:59
Glucose 126 H
POC Glucose 127 H 117 H
05/08/24 05/08/24 05/08/24
12:01 12:09 13:33
Glucose 92
POC Glucose 115 H 80
05/08/24 05/08/24 05/08/24
15:29 16:15 18:06
Glucose
POC Glucose 191 H 164 H 90
05/08/24 05/08/24 05/08/24
20:18 22:22 23:23
Glucose
POC Glucose 147 H 136 H 101 H
05/09/24 05/09/24 05/09/24
00:46 01:55 03:09
Glucose
POC Glucose 94 168 H 109 H
05/09/24 05/09/24 05/09/24
03:10 04:59 07:27
Glucose 110 H
POC Glucose 109 H 88
Patient Education
[2024-05-09] MEDS: SUBLIMAZE 50 MCG IV ×2 (08:55→19:38)
[2024-05-09] MEDS: APRESOLINE 5 MG IV ×2 (08:59→18:44)
--- NOTE | 2024-05-09 09:30 | PTCARENOTE ---
Assumed care of patient at 0700. Intubated and sedated on Fent/Prop. Patient alert and anxious. Dyssynchronous with ventilator. Fentanyl bolus administered. Orders for Seroquel placed. Wean Propofol as tolerated. Following commands. MAEx4. Weak hand
grasps bilaterally. NSR/ST with PVCs on tele monitor. +1 edema in b/l LE. Palpable pulses. #8 ett @ 22 cm. A/C 18/380/8/50%. Lung sounds coarse/diminished. Copious secretions. Endotracheal and oral suctioning as needed. +BS. DHT in place with TF's
at goal rate. +BM. No BM. Lemon in place for critical I/O. IV Lasix administered as ordered. Right dual lumen PICC in place with Fent/Prop/Insulin gtt's. GP maintained. VSS. Left radial john leveled and zeroed. BP elevated. Hydralazine
administered. Paper Cup Machine Tender notified. Lopressor initiated BID.
[2024-05-09] MEDS: SEROQUEL 25 MG TUBE ×2 (10:11→16:09)
[2024-05-09] MEDS: LOPRESSOR 50 MG TUBE ×2 (10:11→19:28)
[2024-05-09] MEDS: LANTUS 0.3 UNITS SC (10:11)
[2024-05-09 10:16] LABS: Glucose - Point of Care 205 mg/dl (70-99)
--- NOTE | 2024-05-09 11:09 | PTCARENOTE ---
Addendum entered by Angelita Mendoza RN 05/09/24 16:30:
Originally weaned to 40%* with desaturation.
Original Note:
Patient weaned to PEEP of 5, 50% FiO2. Pulse ox down to 85%. 100% given; slow to recover. RT notified. In order to maintain pulse ox >92%, PEEP increased back to 8 and FiO2 to 50%.
[2024-05-09 11:15] LABS: Glucose - Point of Care 168 mg/dl (70-99)
[2024-05-09] MEDS: NOVOLOG FLEXPEN-MODERATE RESISTANCE SC (11:58)
[2024-05-09] MEDS: STERILE WATER FOR INJECTION IV (12:05)
[2024-05-09 12:07] LABS: Glucose - Point of Care 147 mg/dl (70-99)
--- NOTE | 2024-05-09 12:15 | PTCARENOTE ---
Minor changes in assessment. Patient calm. Drowsy but arousable to voice. Weaning Propofol gtt. Vitals stable. NSR with pvcs on tele monitor.
--- NOTE | 2024-05-09 13:07 | W.PN.CARDCBS ---
Today's Communication / Plan
-
Cont IV diuresis in an attempt to improve her respiratory status
Follow Cr/lytes and daily weights
Impression / Plan
-
Family Physician: Yenifer Trent
Ordnance Mechanic: Initial consult Dr. Sandoval
Impression:
Presented 05/06/2023 with cough, fevers, chills, sore throat x 5 days
Acute hypoxic respiratory failure requiring intubation on 05/07/2024
Pneumonia
Pulmonary edema
Acute heart failure with preserved ejection fraction, proBNP 7690
Abnormal troponin, suspect nonischemic myocardial injury secondary to above
DKA
MARTIN
Hypertension
Diabetes
Plan:
-Presented 05/06/2023 with cough, fevers, chills, respiratory symptoms x 1 week
-Acute hypoxic respiratory failure requiring intubation on 05/07/2024
-Possible community acquired pneumonia +/- ARDS _+/- CHF
-Flu and COVID-negative. Blood cultures pending. Antibiotics per primary team.
-Briefly on pressors, currently off
-Elevated proBNP 7690 in keeping with some component of CHF
-TTE with NL biV function and no sig valve dz
-Cont lasix 40mg BID in an attempt to improve her respiratory status
-Follow daily weights and Cr/electrolytes
-Abnormal troponin, peaked at 0.076. Trend to peak. Suspect nonischemic myocardial injury secondary to acute hypoxic respiratory failure, acute heart failure
Discussed with her daughter who is at bedside
HPI 05/07/2024:
Patient is a 64-year-old female with past medical history significant for diabetes and hypertension who presented to emergency department 05/06/2024 with fevers, chills and worsening cough. Patient was found to be hypoxic on arrival requiring mid
flow oxygen. She was found to have a fever of 101 on arrival. She tested negative for COVID and the flu. Chest x-ray with bilateral alveolar opacification. Pro-Moises elevated at 1.39. proBNP elevated at 7690. Abnormal troponin initially 0.052
and trending upward at time of this evaluation 0.076. EKG showed sinus tachycardia at 120 bpm without ischemic changes. Patient did receive a dose of IV Lasix in emergency department. Patient briefly required pressor now hypertensive. She
developed worsening hypoxemia requiring intubation on morning of 05/07/2024. She also got an additional 40 mg IV Lasix
Patient and her daughter have been dealing with upper respiratory symptoms for over a week. They were using [id number] cold and flu medication without improvement of symptoms. Patient's daughter reports she did see a brazer electronic in [place]
several years ago and was told she had no cardiac issues. Prior to her illness she was able to perform chores around the house and go up and down the stairs without cardiac symptoms.
History is limited given patient is currently intubated. Current information is obtained by review of prior medical records, coordinating providers and discussion with daughter.
Progress Note - Ordnance Mechanic
Subjective
Date of Service: May 09, 2024
NAOE. Remains intubated, on 60% FiO2. More awake today, tracking.
Objective
Labs:
05/09/24 03:10
05/09/24 03:10
Labs
Hgb 8.5 g/dL (12.0-16.0) L 05/09/24 03:10
Hct 24.9 % (37.0-47.0) L 05/09/24 03:10
Plt Count 318 10^3/uL (130-400) 05/09/24 03:10
PT 14.3 Sec (11.4-14.6) 05/07/24 04:34
INR 1.12 05/07/24 04:34
APTT 40.1 Sec (23.4-35.0) H 05/07/24 04:34
Sodium 142 mmol/L (135-145) 05/09/24 03:10
Potassium 4.0 mmol/L (3.5-5.1) 05/09/24 03:10
BUN 46 mg/dl (7-17) H 10/02/24 03:10
Creatinine 1.0 mg/dL (0.6-1.0) 05/09/24 03:10
Glucose 110 mg/dl (70-99) H 05/09/24 03:10
Troponins
05/06/24 05/07/24 05/07/24
20:03 00:19 04:34
Troponin I 0.052 H* 0.069 H* D 0.076 H*
05/07/24
12:38
Troponin I 0.063 H*
Vital Signs and I&O:
Vital Signs
Temp Pulse Resp BP Pulse Ox
99.2 F 84 18 161/74 97
05/09/24 11:59 05/09/24 13:00 05/09/24 13:00 05/09/24 10:11 05/09/24 13:00
Vital Signs
Temp Pulse Resp BP Pulse Ox
99.2 F 84 18 16174 97
05/09/24 11:59 05/09/24 13:00 05/09/24 13:00 05/09/24 10:11 05/09/24 13:00
Intake & Output
05/07/24 05/08/24 05/09/24 05/10/24
06:59 06:59 06:59 06:59
Intake Total 1902.3 / 2080.1 2874.6 / 2966.9 2042.9 / 2131.9 834.2 / 834.2
Output Total 350 / 350 1295 / 1320 1285 / 1360 900 / 900
Balance 1552.3 / 1730.1 1579.6 / 1646.9 757.9 / 771.9 -65.8 / -65.8
Physical Exam
Physical Exam
Gen: NAD, awake
HEENT: NC/AT, sclera anicteric
Neck: No JVD
CV: RRR, NL s1/s2
Lungs: Mechanically ventilated
Abd: S/ND
: Lemon with salvador urine.
Ext: No LE edema
Skin: Warm, dry.
Neuro: Non-focal
--- NOTE | 2024-05-09 14:30 | PTCARENOTE ---
Propofol gtt weaned off.
[2024-05-09 14:43] LABS: Glucose - Point of Care 176 mg/dl (70-99)
--- NOTE | 2024-05-09 16:22 | PTCARENOTE ---
Patient resting comfortably. Nodding head appropriately. Denies pain. Fentanyl weaned as tolerated. Propofol remains off. Vitals stable. Incontinent of loose BM. Patient assisting with turns in bed for winnie care. Repositioned for comfort. Vent
settings unchanged.
[2024-05-09 17:03] LABS: Myeloperoxidase Antibody 0 AU/mL (0-19); Serine Protease-3, IgG 0 AU/mL (0-19)
[2024-05-09 17:41] LABS: Glucose - Point of Care 269 mg/dl (70-99)
[2024-05-09] MEDS: LOVENOX 40 MG SC (17:46)
[2024-05-09] MEDS: NOVOLOG FLEXPEN-MODERATE RESISTANCE 5 UNITS SC (17:46)
[2024-05-09] MEDS: NOVOLOG FLEXPEN 4 UNITS SC (18:41)
[2024-05-09 18:53] LABS: Glucose - Point of Care 313 mg/dl (70-99)
--- NOTE | 2024-05-09 20:00 | PTCARENOTE ---
Patient received intubated, sedated on fentanyl gtt. Bilateral wrist restraints maintained. Commands followed, nods head appropriately. NSR with PVCs, afebrile, blood pressure as documented. Palpable pulses throughout, trace lower extremity
edema noted. #8 ETT at 22 cm at the center, AC 180 TV380 FIO2 50% Peep 5, lungs coarse rhonchi, pulse ox 100%. Large amount of oral secretions. Blood tinged from ETT. DHT in left nare with Osmolite at 50 ml/hr with 25 ml/hr water flush.
Abdomen round soft. Lemon catheter draining yellow urine. RDL PICC with Fentanyl gtt infusing. Left radial [place] transduced and zeroed.
[2024-05-09] MEDS: PRECEDEX 100 IV (21:44)
--- NOTE | 2024-05-09 21:53 | PTCARENOTE ---
Patient agitated, attempting to pull at tube, increased blood pressure and heart rate. Precedex gtt started.
[2024-05-10] MEDS: SEROQUEL 25 MG TUBE ×3 (00:01→16:03)
[2024-05-10] MEDS: NOVOLOG FLEXPEN-MODERATE RESISTANCE 7 UNITS SC (00:01)
[2024-05-10] MEDS: NOVOLOG FLEXPEN 4 UNITS SC ×2 (00:02→06:08)
[2024-05-10 00:11] LABS: Glucose - Point of Care 324 mg/dl (70-99)
--- NOTE | 2024-05-10 00:18 | PTCARENOTE ---
Patient calmer, nods head appropriately, turned and repositioned. No other changes in assessment
--- NOTE | 2024-05-10 04:29 | PTCARENOTE ---
Patient reassessed, Precedex and Fentanyl gtts infusing as documented. ETT repositioned. CHG bath given. Turned and repositioned
[2024-05-10] MEDS: SUBLIMAZE 100 IV (04:53)
[2024-05-10 04:59] LABS: Hematocrit 25.9 % (37.0-47.0); Hemoglobin 8.7 g/dL (12.0-16.0); Mean Corp Hgb Conc. 33.6 g/dL (33.0-37.0); Mean Corpuscular Volume 83.3 fL (81.0-99.0); Mean Platelet Volume 11.2 fL (7.4-10.4); Platelet Count 310 10^3/uL (130-400); Red Blood Cell Count 3.11 10^6/uL (4.20-5.40); White Blood Cell Count 8.6 10^3/uL (4.8-10.8)
[2024-05-10 05:11] LABS: Blood Urea Nitrogen 52 mg/dl (7-17); Calcium 7.9 mg/dl (8.4-10.2); Carbon Dioxide 22 mmol/L (22-30); Chloride 107 mmol/L (98-107); Estimated Creatinine Clearance 49 ml/min; Glucose 263 mg/dl (70-99); Magnesium 1.9 mg/dl (1.6-2.3); Phosphorus 4.7 mg/dl (2.5-4.5); Potassium 4.6 mmol/L (3.5-5.1); Sodium 140 mmol/L (135-145); Triglycerides 215 mg/dl (10-149); eGFR > 60.00
[2024-05-10 06:00] VITALS: BMI 26.5
[2024-05-10] MEDS: NOVOLOG FLEXPEN-MODERATE RESISTANCE 5 UNITS SC ×2 (06:08→11:38)
[2024-05-10] MEDS: LANTUS 0.3 UNITS SC (07:22)
[2024-05-10] MEDS: LOPRESSOR 50 MG TUBE (07:23)
[2024-05-10] MEDS: NSS (PRESERVATIVE FREE) 10 ML IV (07:24)
[2024-05-10] MEDS: LASIX 40 MG IV ×2 (07:24→16:03)
[2024-05-10] MEDS: PROTONIX IV 40 MG IV (07:24)
--- NOTE | 2024-05-10 07:24 | W.PN.INTV ---
Today's Communication / Plan
Recommendations
Doing well on SBT, plan to extubate today
Continue diuresis per team
Diet advancement post speech eval
Diabetic management and education ongoing
Repeat CXR in AM
PT/OT
Assessment
-
Patient is a 64-year-old female with previous history of poorly controlled diabetes, hypertension presenting to the ER with history of cough, fevers and shortness of breath that started approximately 5 days prior to admission. Family states that
she generally is a poorly controlled diabetic, noncompliant with her diet or her medications. Her last hemoglobin A1c was 12. On arrival to the ER, she was noted to be hypoxemic, febrile to 101 Fahrenheit, blood pressure 160/90, tachycardic to the
120s. She was placed on high flow nasal cannula. proBNP was elevated with chest x-ray demonstrating multifocal opacities suspicious for pulmonary edema versus pneumonia. Overnight developed acute decompensation of respiratory failure requiring
intubation. She is admitted to ICU for further management.
Acute hypoxic respiratory failure status post intubation
Acute pulmonary edema, suspect acute HFpEF, proBNP 7600
Bilateral infiltrates, procal 1.37 s/p bronch 05/07/24, culture negative
Flu and COVID-negative
Likely ARDS
DKA, AG 19
Acute Anemia, Hb 8.9 from 10.2--unclear cause, no baseline
MARTIN, creat 1.3
Mildly elevated liver enzymes: T bili, AST, alk phos
Elevated trops, likely non-LA related
Fevers, resolved
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
IDDM
HTN
Plan
Sedated/intubated, able to nod yes/no
Denies pain at this time.
Pain/sedation: sedation off, PO Seroquel on board
RASS goals: 0
Hemodynamically stable, not requiring pressors.
Cardiac history reviewed--HTN
No prior ECHO available, new study showing normal function
Resume home meds, gtt as needed
Monitor on telemetry
Cards eval noted
Daughter states patient drank excessive amounts of water/had LE/ocular swelling
Lasix continued BID
Oxygen needs: intubated following failure of HFNC, improving
SBT trial and extubation today
Prior history of lung disease: none, nonsmoker
Supplemental O2 as indicated to maintain sats > 89%
CXR/CT reviewed indicating bilateral opacities, could be CHF and PNA, given WBC/fever
s/p Bedside bronch 05/07, no abnormalities, cultures are prelim negative thus far
Check autoimmune panel-ERNESTO/RF/dsDNA neg
Off IV steroids
Repeat CXR in AM
NPO, DHT w/ TFs
Slight elevation in enzymes
Respiratory Care Technician recommendations
Aspiration precautions, HOB > 30 degrees
GI prophylaxis if indicated for mechanical ventilation >48 hours, prior history of GERD, stress ulcer formation in the critically ill
Advance diet post extubation, speech eval
MARTIN present, improving
Creat at baseline, no history of renal disease
Void trials
Follow urine output, critical I/Os
Replete electrolytes as needed
Fever and increased WBC on presentation, possible PNA suspected/culture negative to date
Started on CFP/doxy, change to CTX/doxy--stop abx and observe off
Cultures sent and negative thus far, PNA less likely
Blood neg
Sputum prelim neg
MRSA neg
Follow fever trend, WBC count
Lactate not elevated on admission, <2
CBC stable, no signs of bleeding or coagulopathy.
Hb has dropped from 10->8, monitor with further CBC
DVT prophylaxis as assessed based on risk, including mechanical SCDs
Can transfuse if indicated for Hb <7, plt < 10
INR WNL
H/o poorly controlled diabetes, can continue on home meds, SS for coverage
DKA initially, placed on insulin gtt, AG closed
Transition IV insulin to hyperglycemia protocol
HbA1c 11, 12 at home
Consult DM COMMUNITY ENGAGEMENT COORDINATOR
Transitioned off gtt
Diagnostic Data
Chest X-Ray: 05/07/24- Endotracheal tube tip projects over the lower thoracic trachea, approximately 1.8 cm above the neda.
Bilateral airspace opacities, possible edema versus infectious etiology, overall similar appearance to prior.
05/06/24- Bilateral fluffy alveolar opacification with likely normal heart size. Most likely differential diagnostic possibility would be acute pulmonary edema. Infectious process would be less likely.
CT Scan:
Echo: pending
PFT's:
Reports and relevant images were personally reviewed.
-----
Critical care time 45 mins -- this includes review of history, physical exam, medications, hemodynamic/ventilator parameters, laboratory data, imaging and discussion with house staff, pharmacy, respiratory therapy, car shifter, and nursing.
Subjective Dataa
Subjective Data
Date of Service:
Date of Service: May 10, 2024
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
Subjective:
Remains intubated but more awake this AM
Vent settings improved
Daughter at bedside
Objective Data
Data Reviewed
Vital Signs / I&O / Oxygen:
Vital Signs
Temp Pulse Resp BP Pulse Ox
98.9 F 84 18 185/85 100
05/10/24 04:00 05/10/24 07:15 05/10/24 07:15 05/09/24 18:44 05/10/24 07:15
Intake and Output
05/09/24 05/10/24 05/11/24
06:59 06:59 06:59
Intake Total 2042.9 / 2131.9 2390.0 / 2472.8 82.8 / 82.8
Output Total 1285 / 1360 2355 / 2430 75 / 75
Balance 757.9 / 771.9 35.0 / 42.8 7.8 / 7.8
SaO2 [A/C] 100
SaO2 100
Nasal Cannula flow liters per 8
minute
Physical Exam
General: Comfortable and Other (critically ill, intubated)
HEENT: Normocephalic, Anicteric and Moist Mucous Membranes
Cardiovascular: S1-S2, Regular Rhythm and Peripheral Edema
Respiratory: Clear, Non-Labored Respirations and ET Tube
GI: Soft, Non Distended, Non Tender and NG Tube
Neurology: Awake, Alert, Non Verbal and Other (nodes head yes/no)
Skin: Warm and Dry
Labs/Micro/Reports
Lab Data
05/10/24 04:36
05/10/24 04:36
Microbiology
05/06/24 20:03 Blood/Venous Blood Culture - Preliminary
No Growth in 72 hours- Final report to follow
05/06/24 20:03 Blood/Venous Blood Culture - Preliminary
No Growth in 72 hours- Final report to follow
05/07/24 12:15 Bronch Washing Respiratory Culture - Final
NO GROWTH
05/07/24 12:15 Bronch Washing Gram Stain - Final
05/07/24 07:59 Sputum Respiratory Culture - Final
Usual Respiratory [place]
05/07/24 07:59 Sputum Gram Stain - Final
05/07/24 00:20 Nose MRSA Screen - Final
No Methicillin Resistant Staphylococcus aureus isolated.
05/07/24 07:59 Urine Legionella Urinary Antigen - Final
Negative for Legionella pneumophila Serogroup 1 antigen.
A negative result does not rule out the possiblity of
Legionella infection due to other serogroups or species of
Legionella. Clinical correlation is recommended.
05/07/24 07:59 Urine Streptococcus pneumoniae Antigen (M - Final
Negative for Streptococcus pneumoniae antigen.
A negative result does not exclude infection with
Streptococcus pneumoniae. Clinical correlation is
recommended.
[2024-05-10] MEDS: KCL ELIXIR TUBE (07:25)
[2024-05-10] MEDS: MIRALAX TUBE (07:25)
--- NOTE | 2024-05-10 07:29 | W.PN.HOSP.TC ---
Today's Communication/Plan
-
monitor off abx
cont diuresis
weaning/breathing trial vent mgmt as per ICU
glycemic control as per DM PERSONAL LINES ADVISOR
check B12 Folate Iron studies
Assessment / Plan
Assessment / Plan
Physical Exam
General: Intubated on sedation
HEENT: NormoCephalic, Anicteric, Atraumatic, Pinpoint pupils
Respiratory: Clear to auscultation on ventilator
Cardiac: Tachy no murmurs rubs gallops
GI: Soft, Non Tender, Non Distended and decreased bowel sounds
Musculoskeletal: No Clubbing, No Cyanosis, +2 Edema shins b/l
Skin: Warm
Neuro: Awake spontaneous eye movements, communicative with head gestures, following commands
64 HTN DM with cough fevers chills and was found to be hypoxic on arrival requiring mid flow. She was febrile in the ED and x-ray shows bilateral infiltrates. Procalcitonin is elevated with associate mild MARTIN Cr 1.3. Negative COVID and flu test.
BNP elevated 7690. Troponin trended up 0.076. Admitted to ICU, patient progressively worsened overnight desaturating despite high flow nonrebreather increased work of breathing. Concern impending respiratory failure, Patient was subsequently
intubated overnight.
PLAN:
# Pneumonia - Multifocal Community acquired pneumonia w/ fever, cough, chills, hypoxia and pulmonary infiltrates. Elevated procal.
#Septic Shock briefly required pressor overnight since weaned off
#Acute Metabolic Encephalopathy
- admitted to icu
- Intubated overnight 05/06-05/07 impending respiratory failure
- legionella strep ua neg, mrsa swab pending, blood culture results pending
- Cefepime 2g q8 switched to ceftriaxone 1g daily, doxycycline iv bid switched to oral w/ placement NGT, since discontinued consistently afebrile no leukocytosis monitoring off abx
- sputum culture No growth
- CR chest appreciated acute pulm edema vs infectious
-Devulcanizer Head eval appreciated weaning trial SBT, seroquel precedex gtt agitation/confusion
#Suspect new onset Heart Failure
# Pulm Edema
#Troponin elevation possibly non-CA related
#No h/o CAD or CHF per family, was chest pain free per reports prior to intubation/sedation
- agree 40 mg Lasix IV daily as per ICU
- crp/esr elevated
- trop trending up 0.076 continue trend to peak
- ECHO appreciated preserved EF 55-60% no significant valve abn's
-daily weights I/O
-Lemon for accurate I/O's
-Cardio eval appreciated Lasix IV 40 mg BID
#Mild MARTIN possibly cardiorenal
resolved following diuresis
cont monitoring renal function
#DKA - Initial Glucose 430, AG 19 bHB > 4. Reportedly on insulin lantus 30 hs and novolin 10 ac at home. pH is 7.39.
-anion gap and glucose since improved with insulin gtt switched to basal bolus
-cont insulin mgmt as per ICU, DM PERSONAL LINES ADVISOR
-DM PERSONAL LINES ADVISOR eval appreciated
Hypertension
-cont Lasix as above
-Metoprolol as per ICU
-eventual gradual restart home antihypertensives
#Anemia
H&H stable 8's
check B12 Folate Iron Studies
DVT PPX - lovenox sq
Code status - full code
Total Critical Care Time__40___ minutes. I was immediately available to the patient and staff. I personally examined, reviewed labs, diagnostic images/reports, interpretations, treatment plans, discussed patient care with other providers and
family (daughters Cammy and Jered, patient unable to make decisions at this time due to intubation/sedation), entered orders as appropriate and documented the medical record.
Anticipated Discharge: > 48 hours
Subjective/Interval History
-
Date of Service: May 10, 2024
awake following commands. remains intubated on precedex light sedation.
Objective Data
-
Labs:
Laboratory Results
05/10/24
04:36
WBC 8.6
Hgb 8.7 L
Hct 25.9 L
Plt Count 310
Sodium 140
Potassium 4.6
Chloride 107
Carbon Dioxide 22
BUN 52 H
Creatinine 1.0
Glucose 263 H
Calcium 7.9 L
Vital Signs:
Vital Signs
Temp Pulse Resp BP Pulse Ox
98.9 F 84 18 185/85 100
05/10/24 04:00 05/10/24 07:15 05/10/24 07:15 05/09/24 18:44 05/10/24 07:15
I&O
05/09/24 05/10/24 05/11/24
06:59 06:59 06:59
Intake Total 2042.9 / 2131.9 2390.0 / 2472.8 82.8 / 82.8
Output Total 1285 / 1360 2355 / 2430 75 / 75
Balance 757.9 / 771.9 35.0 / 42.8 7.8 / 7.8
[2024-05-10 07:34] LABS: Glucose - Point of Care 306 mg/dl (70-99)
[2024-05-10] MEDS: SUBLIMAZE 50 MCG IV (07:40)
--- NOTE | 2024-05-10 08:08 | PN.DE.MGMTRT ---
Insulin Management
- -
05/10/2024: Diabetes Management Consult Follow up
Patient with w/hx of cough fevers and shortness of breath. PMH: HTN, IDDM. Patient with multifocal Community acquired pneumonia, respiratory failure, now intubated. Was noted for Hyperglycemia with a glucose level of 430 and in DKA with a GAP of
19. DKA protocol was initiated.
Prior to admission was taking Lantus 30 units and AC NovoLog 10 units, A1C 11.1%, cr 1.3, eGFR 45.92.
Pt remains intubated and sedated, unable to interview at this time.
05/09 Steroids have been stopped, glucose 80 to 136 requiring .5 to 6 units of insulin per hour. Tube feeds increased from 35 /hr to 50/hr. Transitioned to home dose lantus 30 units, with 4 units novolog Q 6 hours and corrective insulin.
05/10 Cr 1, eGFR > 60. Glucose now > 300. Will increase Q 6 hour novolog to 10 units with high corrective and lantus to 35 units daily in AM. (AM dose 30 units given this AM will add 5 additional units). Nurse to let me know 12 noon glucose, if
continues elevated will again increase Q 6 novolog.
Discussed with patients nurse.
Diabetes History
- -
Type of Diabetes: 2 requiring insulin
Pre-Admission Diabetes Regimen
05/10/24
04:36
Creatinine 1.0
Lab Results
Hemoglobin A1c 11.1 % (4.0-5.6) H 05/07/24 04:34
Insulin Pump Settings
IP Diabetes Regimen
05/09/24 05/09/24 05/09/24
10:00 11:01 11:56
Glucose
POC Glucose 205 H 168 H 147 H
05/09/24 05/09/24 05/09/24
14:31 17:29 18:40
Glucose
POC Glucose 176 H 269 H 313 H
05/10/24 05/10/24 05/10/24
00:00 04:36 07:20
Glucose 263 H
POC Glucose 324 H 306 H
Patient Education
[2024-05-10 08:14] VITALS: BP_SYST 141
--- NOTE | 2024-05-10 08:17 | PTCARENOTE ---
Rec'd care of patient at 0700. Patient drowsy but arousable. Nodding head appropriately and assisting with turns in bed. Fentanyl off for spontaneous awakening trial and Precedex weaned to 0.2. Infusing through right dual lumen PICC. RT at bedside.
SBT initiated at 0813. 5/5 40%. Pulse ox 98%. Lung sounds coarse/diminished throughout. Large amount of clear/thick secretions suctioned orally. NSR with PVCs on tele monitor. Rate in the 80-90's. BP 140's/60's. Left radial john zeroed and
transduced. Trace edema in b/l LE. Lasix administered as ordered. Lemon in place for critical I/O. Urine output 40-75 cc's/hr. Output yellow with sediment. Patient incontinent of large liquid brown stool. Incontinence care provided. Rectal trumpet
placed with roughly 100 cc's drained in bag. Repositioned for comfort.
[2024-05-10 08:29] VITALS: BP_SYST 148
[2024-05-10 09:21] LABS: HCO3 22.1 mmol/L (21-28); PCO2 34 mmHg (32-35); PO2 96 mmHg (83-108); pH 7.42 (7.35-7.45)
[2024-05-10 09:26] LABS: O2 Therapy 40
[2024-05-10 09:29] LABS: Iron 27 ug/dl (37-170)
[2024-05-10 09:39] LABS: Percent Saturation 13 % (20-50); Total Iron Binding Capacity 200 ug/dl (265-497)
[2024-05-10] MEDS: LANTUS 0.05 UNITS SC (09:44)
[2024-05-10] MEDS: APRESOLINE 5 MG IV (09:53)
--- NOTE | 2024-05-10 09:54 | PTCARENOTE ---
Patient extubated at 0935 to 6L MF. Patient alert. Refusing to speak to staff, but nodding head appropriately. Reassurance provided. B/l wrist restraints removed. VSS. Hydralazine administered for SBP >160.
[2024-05-10 09:56] LABS: Glucose - Point of Care 306 mg/dl (70-99)
[2024-05-10 10:59] LABS: Folate 8.4 ng/ml (2.76-20); Vitamin B12 823 pg/ml (239-931)
[2024-05-10] MEDS: NOVOLOG FLEXPEN 10 UNITS SC ×2 (11:38→18:28)
[2024-05-10 11:43] LABS: Glucose - Point of Care 279 mg/dl (70-99)
[2024-05-10] MEDS: TYLENOL ORAL SOLUTION 650 MG TUBE (11:45)
--- NOTE | 2024-05-10 11:53 | PTCARENOTE ---
Patient's HR sustaining in the 110's and BP 170/80's. Quality Improvement Coordinator and Pharmacist notified. AM dose of Lopressor and PRN Hydralazine administered prior in the shift. Order for Coreg obtained in place of Lopressor. Patient reassessed. Remains drowsy.
C/o some soreness in chest from cough. Tylenol administered. No other changes.
[2024-05-10] MEDS: COREG 6.25 MG PO (11:59)
--- NOTE | 2024-05-10 14:06 | W.PN.CARDCBS ---
Today's Communication / Plan
-
Continue IV diuresis
Impression / Plan
-
Family Physician: Yenifer Trent
Marine Steam Fitter Helper: Initial consult Dr. Sandoval
Impression:
Presented 05/06/2023 with cough, fevers, chills, sore throat x 5 days
Acute hypoxic respiratory failure requiring intubation on 05/07/2024
Pneumonia
Pulmonary edema
Acute heart failure with preserved ejection fraction, proBNP 7690
Abnormal troponin, suspect nonischemic myocardial injury secondary to above
DKA
MARTIN
Hypertension
Diabetes
Plan:
-Presented 05/06/2023 with cough, fevers, chills, respiratory symptoms x 1 week
-Acute hypoxic respiratory failure requiring intubation on 05/07/2024
-Possible community acquired pneumonia +/- ARDS _+/- CHF
-Flu and COVID-negative. Blood cultures pending. Antibiotics per primary team.
-Briefly on pressors, currently off
-Elevated proBNP 7690 in keeping with some component of CHF
-TTE with NL biV function and no sig valve dz
-Cont lasix 40mg BID in an attempt to improve her respiratory status
-Follow daily weights and Cr/electrolytes
-Blood pressure has been consistently elevated over the last 48 hours, will likely need to add back home antihypertensive meds
-Abnormal troponin, peaked at 0.076. Trend to peak. Suspect nonischemic myocardial injury secondary to acute hypoxic respiratory failure, acute heart failure
Discussed with her daughter who is at bedside
HPI 05/07/2024:
Patient is a 64-year-old female with past medical history significant for diabetes and hypertension who presented to emergency department 05/06/2024 with fevers, chills and worsening cough. Patient was found to be hypoxic on arrival requiring mid
flow oxygen. She was found to have a fever of 101 on arrival. She tested negative for COVID and the flu. Chest x-ray with bilateral alveolar opacification. Pro-Moises elevated at 1.39. proBNP elevated at 7690. Abnormal troponin initially 0.052
and trending upward at time of this evaluation 0.076. EKG showed sinus tachycardia at 120 bpm without ischemic changes. Patient did receive a dose of IV Lasix in emergency department. Patient briefly required pressor now hypertensive. She
developed worsening hypoxemia requiring intubation on morning of 05/07/2024. She also got an additional 40 mg IV Lasix
Patient and her daughter have been dealing with upper respiratory symptoms for over a week. They were using [id number] cold and flu medication without improvement of symptoms. 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
several years ago and was told she had no cardiac issues. Prior to her illness she was able to perform chores around the house and go up and down the stairs without cardiac symptoms.
History is limited given patient is currently intubated. Current information is obtained by review of prior medical records, coordinating providers and discussion with daughter.
Progress Note - Marine Steam Fitter Helper
Subjective
Date of Service: May 10, 2024
No acute overnight events. Remained intubated on SBT this morning at the time of my evaluation.
Objective
Labs:
05/10/24 04:36
05/10/24 04:36
Labs
Hgb 8.7 g/dL (12.0-16.0) L 05/10/24 04:36
Hct 25.9 % (37.0-47.0) L 05/10/24 04:36
Plt Count 310 10^3/uL (130-400) 05/10/24 04:36
PT 14.3 Sec (11.4-14.6) 05/07/24 04:34
INR 1.12 05/07/24 04:34
APTT 40.1 Sec (23.4-35.0) H 05/07/24 04:34
Sodium 140 mmol/L (135-145) 05/10/24 04:36
Potassium 4.6 mmol/L (3.5-5.1) 05/10/24 04:36
BUN 52 mg/dl (7-17) H 05/10/24 04:36
Creatinine 1.0 mg/dL (0.6-1.0) 05/10/24 04:36
Glucose 263 mg/dl (70-99) H 05/10/24 04:36
Vital Signs and I&O:
Vital Signs
Temp Pulse Resp BP Pulse Ox
100.6 F H 107 22 175/74 95
05/10/24 11:24 05/10/24 13:00 05/10/24 13:00 05/10/24 11:59 05/10/24 13:00
Vital Signs
Temp Pulse Resp BP Pulse Ox
100.6 F H 107 22 175/74 95
05/10/24 11:24 05/10/24 13:00 05/10/24 13:00 05/10/24 11:59 05/10/24 13:00
Intake & Output
05/08/24 05/09/24 05/10/24 05/11/24
06:59 06:59 06:59 06:59
Intake Total 2874.6 / 2966.9 2042.9 / 2131.9 2390.0 / 2472.8 764.1 / 764.1
Output Total 1295 / 1320 1285 / 1360 2355 / 2430 1040 / 1040
Balance 1579.6 / 1646.9 757.9 / 771.9 35.0 / 42.8 -275.9 / -275.9
Physical Exam
Physical Exam
Gen: NAD
HEENT: NC/AT, sclera anicteric
Neck: No JVD
CV: RRR, NL s1/s2
Lungs: Mechanically ventilated
Abd: Rectal tube in place
: Lemon with salvador urine.
Ext: No LE edema
Skin: Warm, dry.
Neuro: Sedated
--- NOTE | 2024-05-10 15:07 | PTCARENOTE ---
Patient having a harsh, productive coughing fit. Oral suctioning provided and patient repositioned into chair position for relief.
--- NOTE | 2024-05-10 15:23 | PTOTSP ---
Dysphagia Evaluation
Patient presents with signs concerning for post-extubation odynophagia and dysphagia as evidenced by wincing and overt weak/breathy coughing with sparing ice chip trials this date.
Recommend:
1. NPO; continue with non-oral means in place (DHT)
2. Medications - via non-oral means
3. Aspiration Risk Hydration Protocol - hold at this time given signs of lethargy, pain, and weak coughing w/ sparing trials less than 24 hours post extubation
4. Dysphagia tx at the acute care level. Will determine if/when appropriate for ARHP and if further objective swallowing assessment such as video swallow study appropriate.
--- NOTE | 2024-05-10 16:04 | CM ---
CM following re: discharge planning.
Reviewed pt's chart, met with pt.
Per Rounds meeting, pt successfully extubated today to 6L midflow, continue supportive care.
PT and OT evaluations pending.
D/C plan: uncertain at this time. Awaiting PT/OT evaluations.
CM will follow with discharge plan updates as hospitalization progress
--- NOTE | 2024-05-10 16:19 | PTCARENOTE ---
PT/OT at bedside. Patient able to sit at the side of bed. Generalized weakness.
[2024-05-10 16:30] VITALS: BP 187/88; PULSE 106; O2SAT 97
[2024-05-10] MEDS: CARDENE 200 IV ×2 (17:10→23:11)
[2024-05-10] MEDS: LOVENOX 40 MG SC (17:10)
[2024-05-10 17:38] LABS: Glucose - Point of Care 190 mg/dl (70-99)
--- NOTE | 2024-05-10 17:46 | PTCARENOTE ---
1600-Received pt with eyes open.Follows commands without difficulty.Nods/shakes head to yes/no questions.Pt will not talk as she c/o sore throat.+WINTERS noted.ST noted.Right DL PICC intact.Cardene gtt initiated at 1710.Left radial A Line intact.O2 6l
midflow intact.Coarse decreased breath sounds throughout.Dobbhoff intact with tube feedings as ordered.Lemon draining yellow urine.Plan of care discussed with pt.
[2024-05-10] MEDS: NOVOLOG FLEXPEN-MODERATE RESISTANCE 1 UNITS SC (18:28)
--- NOTE | 2024-05-10 20:56 | PTCARENOTE ---
Pt restless and c/o SOB. Pt pulled up in bed and now sitting up. Multiple monitor wires were disconnected, rectal trumpet out, and a-line kinked with no waveform. Monitor reconnected, rectal trumpet replaced, a-line repositioned and re-dressed--now
with appropriate waveform. Pt now resting comfortably. Safe environment maintained, callbell within reach.
[2024-05-10] MEDS: COREG 12.5 MG TUBE (21:15)
[2024-05-11] VITALS (28 sets, daily range): BP systolic 125–159; BP diastolic 72–85; PULSE 2–101; O2SAT 91; BMI 27.1
[2024-05-11] MEDS: SEROQUEL 25 MG TUBE ×2 (00:36→08:21)
[2024-05-11] MEDS: NOVOLOG FLEXPEN 10 UNITS SC ×2 (00:37→07:24)
[2024-05-11] MEDS: NOVOLOG FLEXPEN-MODERATE RESISTANCE 5 UNITS SC (00:37)
[2024-05-11 00:49] LABS: Glucose - Point of Care 269 mg/dl (70-99)
[2024-05-11 04:30] LABS: Hematocrit 29.3 % (37.0-47.0); Hemoglobin 9.7 g/dL (12.0-16.0); Mean Corp Hgb Conc. 33.1 g/dL (33.0-37.0); Mean Corpuscular Hgb 28.4 pg (27.0-31.0); Mean Corpuscular Volume 85.9 fL (81.0-99.0); Mean Platelet Volume 11.3 fL (7.4-10.4); Platelet Count 330 10^3/uL (130-400); Red Blood Cell Count 3.41 10^6/uL (4.20-5.40); Red Cell Dist. Width 14.6 % (11.5-14.5); White Blood Cell Count 11.4 10^3/uL (4.8-10.8)
[2024-05-11 04:50] LABS: Blood Urea Nitrogen 50 mg/dl (7-17); Calcium 8.2 mg/dl (8.4-10.2); Carbon Dioxide 25 mmol/L (22-30); Chloride 106 mmol/L (98-107); Estimated Creatinine Clearance 49 ml/min; Glucose 165 mg/dl (70-99); Magnesium 2.1 mg/dl (1.6-2.3); Phosphorus 4.8 mg/dl (2.5-4.5); Potassium 4.4 mmol/L (3.5-5.1); Sodium 143 mmol/L (135-145); eGFR > 60.00
--- NOTE | 2024-05-11 05:28 | PTCARENOTE ---
Pt continues with intermittent periods of restlessness. Assessment unchanged.
--- NOTE | 2024-05-11 07:19 | W.PN.INTV ---
Addendum entered and electronically signed by Yara Osorio DO 05/11/24 16:33:
Doing well, O2 weaned to 3L
Diet advanced, DHT removed
PT/OT working with, she is not always participating --per daughter this is her baseline/personality
BIPAP nightly PRN
Ok to transfer to IMU, discussed with team
We will sign off upon transfer
Original Note:
Today's Communication / Plan
Recommendations
Extubated and doing well, remains on 6L NC
Add BIPAP nightly and PRN
DHT remains, speech following
Ongoing diuresis
Add HTN meds, wean cardene as able
PT/OT
Can likely transfer to IMU if off cardene
Assessment
-
Patient is a 64-year-old female with previous history of poorly controlled diabetes, hypertension presenting to the ER with history of cough, fevers and shortness of breath that started approximately 5 days prior to admission. Family states that
she generally is a poorly controlled diabetic, noncompliant with her diet or her medications. Her last hemoglobin A1c was 12. On arrival to the ER, she was noted to be hypoxemic, febrile to 101 Fahrenheit, blood pressure 160/90, tachycardic to the
120s. She was placed on high flow nasal cannula. proBNP was elevated with chest x-ray demonstrating multifocal opacities suspicious for pulmonary edema versus pneumonia. Overnight developed acute decompensation of respiratory failure requiring
intubation. She is admitted to ICU for further management.
Acute hypoxic respiratory failure status post intubation
Acute pulmonary edema, suspect acute HFpEF, proBNP 7600
Bilateral infiltrates, procal 1.37 s/p bronch 05/07/24, culture negative
Flu and COVID-negative
Likely ARDS
DKA, AG 19
Acute Anemia, Hb 8.9 from 10.2--unclear cause, no baseline
MARTIN, creat 1.3
Mildly elevated liver enzymes: T bili, AST, alk phos
Elevated trops, likely non-[place] related
Fevers, resolved
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
IDDM
HTN
Plan
Flat affect, can reduce seroquel dosing to BID
Denies pain at this time.
Pain/sedation: PRN
RASS goals: 0
Hemodynamically stable, not requiring pressors.
Cardiac history reviewed--HTN
No prior ECHO available, new study showing normal function
HTN remains high, on cardene--Resume home meds, wean gtt as able
Monitor on telemetry
Cards following
Daughter states patient drank excessive amounts of water/had LE/ocular swelling
Lasix continued BID
Oxygen needs: intubated following failure of HFNC, extubated 05/10
Currently on 6L NC, add BIPAP nightly/PRN
Prior history of lung disease: none, nonsmoker
Supplemental O2 as indicated to maintain sats > 89%
CXR/CT reviewed indicating bilateral opacities, could be CHF and PNA, given WBC/fever
s/p Bedside bronch 05/07, no abnormalities, cultures are prelim negative thus far
Check autoimmune panel-ERNESTO/RF/dsDNA neg
Off IV steroids
Repeat CXR in AM--interval improvement noted
NPO, DHT w/ TFs
Slight elevation in enzymes
Poultice Machine Operator recommendations
Aspiration precautions, HOB > 30 degrees
GI prophylaxis if indicated for mechanical ventilation >48 hours, prior history of GERD, stress ulcer formation in the critically ill
Advance diet post extubation, speech eval
MARTIN present, improving
Creat at baseline, no history of renal disease
Void trials
Follow urine output, critical I/Os
Replete electrolytes as needed
Fever and increased WBC on presentation, possible PNA suspected/culture negative to date
Started on CFP/doxy, change to CTX/doxy--stop abx and observe off
Cultures sent and negative thus far, PNA less likely
Blood neg
Sputum prelim neg
MRSA neg
Follow fever trend, WBC count
Lactate not elevated on admission, <2
CBC stable, no signs of bleeding or coagulopathy.
Hb has dropped from 10->8, monitor with further CBC
DVT prophylaxis as assessed based on risk, including mechanical SCDs
Can transfuse if indicated for Hb <7, plt < 10
INR WNL
H/o poorly controlled diabetes, can continue on home meds, SS for coverage
DKA initially, placed on insulin gtt, AG closed
Transition IV insulin to hyperglycemia protocol
HbA1c 11, 12 at home
Consult DM SWEEPER DRIVER
Transitioned off gtt
Diagnostic Data
Chest X-Ray: 05/07/24- Endotracheal tube tip projects over the lower thoracic trachea, approximately 1.8 cm above the neda.
Bilateral airspace opacities, possible edema versus infectious etiology, overall similar appearance to prior.
05/06/24- Bilateral fluffy alveolar opacification with likely normal heart size. Most likely differential diagnostic possibility would be acute pulmonary edema. Infectious process would be less likely.
CT Scan:
Echo: pending
PFT's:
Reports and relevant images were personally reviewed.
-----
Critical care time 35 mins -- this includes review of history, physical exam, medications, hemodynamic/ventilator parameters, laboratory data, imaging and discussion with house staff, pharmacy, respiratory therapy, rubber goods cutter finisher, and nursing.
Subjective Dataa
Subjective Data
Date of Service:
Date of Service: May 11, 2024
Chief Complaint: Document Management Consultant Follow Up
Subjective:
Doing well post extubation
But appears withdrawn, daughter states that is baseline
Remains on 6L NC
Objective Data
Data Reviewed
Vital Signs / I&O / Oxygen:
Vital Signs
Temp Pulse Resp BP Pulse Ox
98.7 F 107 23 168/83 94
05/10/24 19:39 05/11/24 05:30 05/11/24 05:30 05/10/24 16:03 05/11/24 05:33
Intake and Output
05/10/24 05/11/24 05/12/24
06:59 06:59 06:59
Intake Total 2390.0 / 2472.8 1696.6 / 1696.6
Output Total 2355 / 2430 2480 / 2480
Balance 35.0 / 42.8 -783.4 / -783.4
SaO2 [A/C] 100
SaO2 94
Nasal Cannula flow liters per 6
minute
Physical Exam
General: Comfortable and Other (critically ill, intubated)
HEENT: Normocephalic, Anicteric and Moist Mucous Membranes
Cardiovascular: S1-S2, Regular Rhythm and Peripheral Edema
Respiratory: Clear and Non-Labored Respirations
GI: Soft, Non Distended, Non Tender and NG Tube
Neurology: Awake, Alert, Oriented, No Motor Deficits and Other (flat affect)
Skin: Warm and Dry
Labs/Micro/Reports
Lab Data
05/11/24 03:50
05/11/24 03:50
Laboratory Results
05/10/24
09:14
pH 7.42
pCO2 34
pO2 96
HCO3 22.1
O2 Delivery Level 40
Microbiology
05/06/24 20:03 Blood/Venous Blood Culture - Preliminary
No Growth in 4 days- Final report to follow
05/06/24 20:03 Blood/Venous Blood Culture - Preliminary
No Growth in 4 days- Final report to follow
05/07/24 12:15 Bronch Washing Respiratory Culture - Final
NO GROWTH
05/07/24 12:15 Bronch Washing Gram Stain - Final
05/07/24 07:59 Sputum Respiratory Culture - Final
Usual Respiratory [place]
05/07/24 07:59 Sputum Gram Stain - Final
05/07/24 00:20 Nose MRSA Screen - Final
No Methicillin Resistant Staphylococcus aureus isolated.
[2024-05-11] MEDS: NOVOLOG FLEXPEN-MODERATE RESISTANCE 7 UNITS SC (07:23)
--- NOTE | 2024-05-11 07:32 | W.PN.HOSP.TC ---
Today's Communication/Plan
-
Stable for downgrade to IMU
blood pressure control
diuresis
PT/OT
monitor H&H
Glycemic control
Assessment / Plan
Assessment / Plan
Physical Exam
General: Intubated on sedation
HEENT: NormoCephalic, Anicteric, Atraumatic, PERRLA
Respiratory: Clear to auscultation on ventilator
Cardiac: Tachy no murmurs rubs gallops
GI: Soft, Non Tender, Non Distended and decreased bowel sounds
Musculoskeletal: No Clubbing, No Cyanosis, +2 Edema shins b/l
Skin: Warm
Neuro: Awake spontaneous eye movements, communicative with head gestures, following commands
64 HTN DM with cough fevers chills and was found to be hypoxic on arrival requiring mid flow. She was febrile in the ED and x-ray shows bilateral infiltrates. Procalcitonin is elevated with associate mild MARTIN Cr 1.3. Negative COVID and flu test.
BNP elevated 7690. Troponin trended up 0.076. Admitted to ICU, patient progressively worsened overnight desaturating despite high flow nonrebreather increased work of breathing. Concern impending respiratory failure, Patient was subsequently
intubated overnight.
PLAN:
# Pneumonia - Multifocal Community acquired pneumonia w/ fever, cough, chills, hypoxia and pulmonary infiltrates. Elevated procal.
#Septic Shock briefly required pressor overnight since weaned off
#Acute Metabolic Encephalopathy
- admitted to icu
- Intubated overnight 05/06-05/07 impending respiratory failure. Extubated 05/10
- legionella strep ua neg, mrsa swab pending, blood cultures NGTD
- Cefepime 2g q8 switched to ceftriaxone 1g daily, doxycycline iv bid switched to oral w/ placement NGT, since discontinued consistently afebrile no leukocytosis monitoring off abx
- sputum culture No growth
- CR chest appreciated acute pulm edema vs infectious
-Head Of Precision Targeting eval appreciated weaned off vent and sedation, seroquel tapered
-speech eval appreciated appreciated appropriate for regular diet w/ thin liquids and general aspiration precautions, NGT since discontinued
-Medically stable for downgrade to IMU
#Suspect new onset Heart Failure
# Pulm Edema
#Troponin elevation likely Non-ischemic Myocardial Injury
#No h/o CAD or CHF per family, was chest pain free per reports prior to intubation/sedation
- crp/esr elevated
- trop trended to peak 0.076 since trended down
- ECHO appreciated preserved EF 55-60% no significant valve abn's
-daily weights I/O
-Lemon for accurate I/O's
-Cardio eval appreciated Lasix IV 40 mg BID, Aldactone added
#Mild MARTIN possibly cardiorenal
resolved following diuresis
cont monitoring renal function
#DKA - Initial Glucose 430, AG 19 bHB > 4. Reportedly on insulin lantus 30 hs and novolin 10 ac at home. pH is 7.39.
-anion gap and glucose since improved with insulin gtt switched to basal bolus
-cont insulin mgmt as per ICU, DM CHIEF SALES OFFICER
-DM CHIEF SALES OFFICER eval appreciated
Hypertension
-briefly treated with kei gtt as per ICU since weaned off
-cont Lasix as above
-started on Coreg, Amlodipine, Losartan, Aldactone cont
#Iron Deficiency Anemia
#Anemia of Chronic disease
H&H stable/improving
B12 Folate non-deficient
Iron Studies appreciated as above
IV iron ordered, eventual transition to PO iron
PT/OT appreciated SNF rehab
DVT PPX - lovenox sq
Code status - full code
I spent a total of 50 minutes with the patient or on the floor. More than 50% of this time involved counseling and coordination of care.
Anticipated Discharge: 24 - 48 hours
Subjective/Interval History
-
Date of Service: May 11, 2024
AOx2 disoriented to time. Appears comfortable no acute distress.
Objective Data
-
Labs:
Laboratory Results
05/11/24
03:50
WBC 11.4 H
Hgb 9.7 L
Hct 29.3 L
Plt Count 330
Sodium 143
Potassium 4.4
Chloride 106
Carbon Dioxide 25
BUN 50 H
Creatinine 1.0
Glucose 165 H
Calcium 8.2 L
Vital Signs:
Vital Signs
Temp Pulse Resp BP Pulse Ox
99.6 F 107 23 168/83 94
05/11/24 07:30 05/11/24 05:30 05/11/24 05:30 05/10/24 16:03 05/11/24 05:33
I&O
05/10/24 05/11/24 05/12/24
06:59 06:59 06:59
Intake Total 2390.0 / 2472.8 1734.1 / 1734.1
Output Total 2355 / 2430 2580 / 2580
Balance 35.0 / 42.8 -845.9 / -845.9
[2024-05-11 07:35] LABS: Glucose - Point of Care 310 mg/dl (70-99)
--- NOTE | 2024-05-11 08:15 | PN.DE.MGMTRT ---
Insulin Management
- -
05/11/2024: Diabetes Management F/U:
Patient with w/hx of cough fevers and shortness of breath. PMH: HTN, IDDM. Patient with multifocal Community acquired pneumonia, respiratory failure, now intubated. Was noted for Hyperglycemia with a glucose level of 430 and in DKA with a GAP of
19. DKA protocol was initiated.
Prior to admission was taking Lantus 30 units and AC NovoLog 10 units, A1C 11.1%, cr 1.3, eGFR 45.92.
Pt extubated 05/10, awake, alert, flat affect, resting in bed, family at bedside.
Pt requesting for refill of test strips to her Cont[employer] Next glucose meter.
05/09 Steroids stopped. Transitioned off drip to home dose Lantus 30 units, with NovoLog Q 6 hours and corrective insulin.
Dobbhoff tube in place. 05/10 Tube feeds increased from 35 /hr to 50/hr, contributing to Hyperglycemia. glucose range 190 to 306 requiring 1-7 units of additional corrective insulin
Will increase Q 6 hour NovoLog to 12 units with high corrective and Lantus to 37 units daily in AM.
Will follow and change NovoLog to AC if tube feeds are discontinued and diet has been started.
Discussed with patients nurse and requested to send TT if pt passes swallow study and TF are stopped.
Diabetes History
- -
Type of Diabetes: 2 requiring insulin
Pre-Admission Diabetes Regimen
05/11/24
03:50
Creatinine 1.0
Lab Results
Hemoglobin A1c 11.1 % (4.0-5.6) H 05/07/24 04:34
Insulin Pump Settings
IP Diabetes Regimen
05/10/24 05/10/24 05/10/24
09:44 11:33 17:24
Glucose
POC Glucose 306 H 279 H 190 H
05/11/24 05/11/24 05/11/24
00:37 03:50 07:23
Glucose 165 H
POC Glucose 269 H 310 H
Patient Education
[2024-05-11] MEDS: COREG 12.5 MG TUBE (08:18)
[2024-05-11] MEDS: KCL ELIXIR 40 MEQ TUBE (08:18)
[2024-05-11] MEDS: ZOFRAN 4 MG IV (08:19)
[2024-05-11] MEDS: PROTONIX IV 40 MG IV (08:19)
[2024-05-11] MEDS: LASIX 40 MG IV ×2 (08:19→16:18)
[2024-05-11] MEDS: NSS (PRESERVATIVE FREE) 10 ML IV (08:19)
[2024-05-11] MEDS: FLUSH (NSS) 3 FLUSH IV (08:22)
[2024-05-11 08:24] LABS: Glucose - Point of Care 291 mg/dl (70-99)
[2024-05-11] MEDS: LANTUS 0.35 UNITS SC (08:24)
--- NOTE | 2024-05-11 09:00 | PTCARENOTE ---
Rec'd pt at 0800 awake resting in bed. Overall affect is very flat. Will answer a few questions appropriately or nod but mostly does not attempt to interact. WINTERS. Speech is slow but clear when she speaks. Denies pain but did after questioning admit
to some nausea. Skin is vargas wm and dry. Respirs are shallow and at times sl tachypnic but non-labored on 6L midflow cannula. BS- L post decreased at the base with few base crackles. R side decreased throughout with scattered crackles. Coughs a moist
mostly non-prod cough. Does tend to gag with coughing. Sats are 92-95%. Monitor ST with isolated PVC's. VS as documented. Pt remains on Cardene gtt at 7.5 mg/hr via R arm DL Picc. Parameters currently are to keep syst 140-160. Pt with L radial a
line- site wnl and does zero and recalibrate but is positional and often dampens. When good waveform is about 15-20 mm/hr lower than the cuff bp. Good cms checks to distal extremitiy. + pulses. Tr LE edema. Abd is round and soft with + BS. Rectal
trumpet in place for watery loose vargas/brown stool. Tolerating Osmolite 1.2 tube feeds at 50 ml/hr with 25 ml/hr flush via L nare feeding tube. Lemon intact for yellow urine with some sediment. Pt turned and repositioned. Skin and mouth care given. R
picc and L upper arm and AC Capped int sites wnl. Pts daughter in and pt and daughter updated on plan of care. Call bolaños in reach.
--- NOTE | 2024-05-11 09:00 | PTCARENOTE ---
additional assessment- Zofran 4 mg IV given at 0820 for nausea.
[2024-05-11] MEDS: CARDENE 200 IV (09:27)
--- NOTE | 2024-05-11 10:27 | PTCARENOTE ---
Diuresing from Lasix. Cardene currently decreased to 5 mg/hr for Bp 125/72. Will dc A line shortly as it has been positional and waveform often dampened. Family in to see pt
[2024-05-11] MEDS: COZAAR 25 MG PO (11:10)
[2024-05-11] MEDS: NORVASC 10 MG PO (11:11)
--- NOTE | 2024-05-11 11:15 | PTCARENOTE ---
Cozaar 25 mg and Norvasc 10 mg given via tube as ordered. Cardene gtt weaned to 2.5 mg/hr. L radial A line dc'd as waveform continues to intermittently dampen. Pressure held over the site. No hematoma.
[2024-05-11 11:42] LABS: Glucose - Point of Care 201 mg/dl (70-99)
--- NOTE | 2024-05-11 12:15 | PTCARENOTE ---
Remains resting, repositioned. Remains on 6l midflow as sats are anywhere from 91-94%. Remains with a very flat affect and needs encouragement to do anything. Tolerating tube feeds. Repositioned.
--- NOTE | 2024-05-11 12:15 | PTCARENOTE ---
Remains resting, repositioned. Remains on 6l midflow as sats are anywhere from 91-94%. Cardene gtt turned off . Bp 144/78. Remains with a very flat affect and needs encouragement to do anything. Tolerating tube feeds. Repositioned.
[2024-05-11] MEDS: NOVOLOG FLEXPEN-MODERATE RESISTANCE 3 UNITS SC (12:22)
[2024-05-11] MEDS: FLUSH (NSS) 2 FLUSH IV (12:23)
[2024-05-11] MEDS: NOVOLOG FLEXPEN 12 UNITS SC (12:23)
--- NOTE | 2024-05-11 12:50 | PTOTSP ---
Speech Language Pathology
Pt seen for dysphagia tx. Pt awake upon arrival. Verbalizations only when directly spoken to with slight delay in response. P.O. trials of puree, regular solids, and thin liquids via cup/straw provided. Slightly prolonged mastication, but this
was functional given additional time. No overt signs of aspiration, including with consecutive straw sips of thin liquids. Vocal quality appears adequate.
Recommend:
(1) Regular solids/thin liquids
(2) General aspiration precautions
(3) Meds as tolerated
(4) SHORT PIECE HANDLER to continue to follow
--- NOTE | 2024-05-11 14:49 | PN.CDI ---
CDI
- -
CDI:
Physician Documentation Request
Admit Date: 05/06/24 21:45
Dear Doctor Aracelis,
Clinical Indicators:
Patient admitted with pneumonia and septic shock.
05/10 PN, 'Troponin elevation possibly non-MD related'
05/10 Cardiology consult, 'Suspect nonischemic myocardial injury secondary to acute hypoxic respiratory failure, acute heart failure'
Troponin trend:
05/06/24 05/07/24 05/07/24
20:03 00:19 04:34
Troponin I 0.052 H* 0.069 H* D 0.076 H*
05/07/24
12:38
Troponin I 0.063 H*
Based on the above, could you clarify in the progress notes, the appropriate diagnosis, if significant, that supports the above abnormalities and additional evaluation, monitoring and/or treatment rendered:
Non ischemic myocardial injury
Troponin elevation only
Other, please specify
Use of terms such as suspected, likely, concern for, or probable (associated with a specific diagnosis that is being evaluated, monitored, or treated as if it exists) are acceptable and can be coded in the inpatient setting, when documented at the
time of discharge.
Thank you,
Alisha Jack RN BSN
CDI Specialist
available via tiger text
Please use your independent medical judgment in providing your response.
--- NOTE | 2024-05-11 15:17 | W.PN.CARDCBS ---
Today's Communication / Plan
-
Continue IV diuresis
Add spironolactone 25 mg daily to augment diuresis and better control blood pressure
Will ask case management to mcmanus of SGLT2
Impression / Plan
-
Family Physician: Yenifer Trent
Triage Licensed Practical Nurse: Initial consult Dr. Sandoval
Impression:
Acute hypoxic respiratory failure requiring intubation on 05/07/2024 - now extubated
Pulmonary edema
Acute heart failure with preserved ejection fraction, proBNP 7690
Abnormal troponin, suspect nonischemic myocardial injury secondary to above
DKA
MARTIN
Hypertension
Diabetes
Plan:
-Acute hypoxic respiratory failure requiring intubation on 05/07/2024. Now extubated to supplemental O2 via NC.
-Suspect acute HFpEF
-Elevated proBNP 7690
-CXR with bilateral infiltrates c/w pulm edema
-TTE with NL biV function and no sig valve dz
-Cont lasix 40mg BID
-Follow daily weights and Cr/electrolytes
-Start spironolactone
-Consider SGLT2
-Abnormal troponin, peaked at 0.076. Trend to peak. Suspect nonischemic myocardial injury secondary to acute hypoxic respiratory failure, acute heart failure
-Would tentatively plan for outpatient stress test
Discussed with daughter at bedside as well as box loader
HPI 05/07/2024:
Patient is a 64-year-old female with past medical history significant for diabetes and hypertension who presented to emergency department 05/06/2024 with fevers, chills and worsening cough. Patient was found to be hypoxic on arrival requiring mid
flow oxygen. She was found to have a fever of 101 on arrival. She tested negative for COVID and the flu. Chest x-ray with bilateral alveolar opacification. Pro-Moises elevated at 1.39. proBNP elevated at 7690. Abnormal troponin initially 0.052
and trending upward at time of this evaluation 0.076. EKG showed sinus tachycardia at 120 bpm without ischemic changes. Patient did receive a dose of IV Lasix in emergency department. Patient briefly required pressor now hypertensive. She
developed worsening hypoxemia requiring intubation on morning of 05/07/2024. She also got an additional 40 mg IV Lasix
Patient and her daughter have been dealing with upper respiratory symptoms for over a week. They were using [id number] cold and flu medication without improvement of symptoms. Patient's daughter reports she did see a taker off hemp fiber in [place]
several years ago and was told she had no cardiac issues. Prior to her illness she was able to perform chores around the house and go up and down the stairs without cardiac symptoms.
History is limited given patient is currently intubated. Current information is obtained by review of prior medical records, coordinating providers and discussion with daughter.
Progress Note - Triage Licensed Practical Nurse
Subjective
Date of Service: May 11, 2024
No acute overnight events. Patient extubated to nasal cannula yesterday. Resting comfortably in bed today. No cardiac complaints.
Objective
Labs:
05/11/24 03:50
05/11/24 03:50
Labs
Hgb 9.7 g/dL (12.0-16.0) L 05/11/24 03:50
Hct 29.3 % (37.0-47.0) L 05/11/24 03:50
Plt Count 330 10^3/uL (130-400) 05/11/24 03:50
PT 14.3 Sec (11.4-14.6) 05/07/24 04:34
INR 1.12 05/07/24 04:34
APTT 40.1 Sec (23.4-35.0) H 05/07/24 04:34
Sodium 143 mmol/L (135-145) 05/11/24 03:50
Potassium 4.4 mmol/L (3.5-5.1) 05/11/24 03:50
BUN 50 mg/dl (7-17) H 05/11/24 03:50
Creatinine 1.0 mg/dL (0.6-1.0) 05/11/24 03:50
Glucose 165 mg/dl (70-99) H 05/11/24 03:50
Vital Signs and I&O:
Vital Signs
Temp Pulse Resp BP Pulse Ox
100.2 F 95 21 143/78 94
05/11/24 15:15 05/11/24 12:30 05/11/24 12:30 05/11/24 12:30 05/11/24 13:00
Vital Signs
Temp Pulse Resp BP Pulse Ox
100.2 F 95 21 143/78 94
05/11/24 15:15 05/11/24 12:30 05/11/24 12:30 05/11/24 12:30 05/11/24 13:00
Intake & Output
05/09/24 05/10/24 05/11/24 05/12/24
06:59 06:59 06:59 06:59
Intake Total 2042.9 / 2131.9 2390.0 / 2472.8 1734.1 / 1846.6 957.5 / 957.5
Output Total 1285 / 1360 2355 / 2430 2580 / 2580 590 / 590
Balance 757.9 / 771.9 35.0 / 42.8 -845.9 / -733.4 367.5 / 367.5
Physical Exam
Physical Exam
Gen: NAD, AA
HEENT: NC/AT, sclera anicteric
Neck: No JVD
CV: RRR, NL s1/s2, no M/R/G
Lungs: CTAB on 6 L nasal cannula
Abd: S/ND
Ext: No LE edema
Skin: Warm, dry
Neuro: Non-focal
--- NOTE | 2024-05-11 15:20 | PTCARENOTE ---
Worked with PT and OT and pt assisted oob to the chair with assist of 2 and a walker. Gait is very weak but was able to bear some wt. Does need frequent direction and overall pt tends to be very 'floppy' with movement of arms and legs. Speech- again
when she answers is clear but won't tend to converse unless directed to. Speech therapy in earlier as noted and recommending regular diet with thin liquids and aspiration precautions. Dr. Briceño updated as pt was able to take several spoonfuls of
applesauce for me and water. OK given to remove feeding tube-Tube feeds stopped at 1445 and feeding tube removed at 1500. Diabetes coordinator updated on tube feeds being stopped and diet ordered. Once pt oob was very uncomfortable with the rectal
trumpet. Pt had only 50 mls of loose stool all day - rectal trumpet removed and will see how pt does. Skin care given. VS as documented off Cardene. O2 sats 94%- O2 decreased to 3l at 1500. Call bolaños in reach and family at the bedside.
[2024-05-11] MEDS: TYLENOL ORAL SOLUTION 650 MG TUBE (15:44)
--- NOTE | 2024-05-11 15:45 | PTCARENOTE ---
Medicated with Tylenol 650 mg po for c/o chronic back pain. Remains oob in the chair.
[2024-05-11] MEDS: ALDACTONE 25 MG PO (16:18)
[2024-05-11] MEDS: FLUSH (NSS) 1 FLUSH IV (16:19)
--- NOTE | 2024-05-11 16:30 | PTCARENOTE ---
Assisted back to bed. Overall tolerated being oob but states shes tired. Back pain improved somewhat with Tylenol but difficult to get a clear answer. Tolerating 3l nc with sats of 93%. Dinner ordered. Lasix given as ordered. Call bolaños in reach.
[2024-05-11] MEDS: NOVOLOG FLEXPEN-MODERATE RESISTANCE SC (16:53)
[2024-05-11 17:01] LABS: Glucose - Point of Care 117 mg/dl (70-99)
--- NOTE | 2024-05-11 17:20 | PTCARENOTE ---
Pre dinner glucose was 117. Pt with limited appetite- ate 2 spoonfuls of potatoes, few bites of fruit. 1 apple juice, and 1/2 of vanilla pudding. No coughing noted with swallowing but at baseline pt does have a non-prod cough. Will update Diabetes
management but most likely just give 1/2 of the ordered pre meal coverage per Basal/Bolus Insulin protocol.
[2024-05-11] MEDS: NOVOLOG FLEXPEN 5 UNITS SC (17:42)
[2024-05-11] MEDS: LOVENOX 40 MG SC (18:26)
[2024-05-11] MEDS: COREG 12.5 MG PO (20:46)
[2024-05-11] MEDS: SEROQUEL 25 MG PO (20:46)
--- NOTE | 2024-05-11 21:50 | PTCARENOTE ---
Assumed care of pt at 1900. Pt is withdrawn with flat affect, drowsy but arouses to voice. Pt does not speak unless she is specifically asked to speak/answer a question. Pt able to follow commands. Pt noted to be making faces as if she was in pain,
when asked she shook her head no, but continued to make the face, then pt said 'I'm frustrated'. Pt cooperated with stating her name/birthday and answering orientation questions and pt is oriented x3 (person, place,time). Pt desatting when lying
flat/turning in bed, to low 80s, O2 increased to 6L MFNC and pt increased to low/mid 90s. CHG cloth bath done when pt being cleaned up from having a loose BM, linens and gown changed as well. Pt now resting in bed with eyes closed, call bolaños within
reach.
[2024-05-11 22:24] LABS: Glucose - Point of Care 136 mg/dl (70-99)
[2024-05-12] VITALS (25 sets, daily range): BP systolic 105–181; BP diastolic 72–110; BMI 25.7
[2024-05-12 05:25] LABS: Hematocrit 27.5 % (37.0-47.0); Hemoglobin 9.2 g/dL (12.0-16.0); Mean Corp Hgb Conc. 33.5 g/dL (33.0-37.0); Mean Corpuscular Hgb 28.9 pg (27.0-31.0); Mean Corpuscular Volume 86.5 fL (81.0-99.0); Platelet Count 327 10^3/uL (130-400); Red Blood Cell Count 3.18 10^6/uL (4.20-5.40); Red Cell Dist. Width 14.5 % (11.5-14.5); White Blood Cell Count 10.7 10^3/uL (4.8-10.8)
[2024-05-12 05:47] LABS: Blood Urea Nitrogen 49 mg/dl (7-17); Calcium 8.7 mg/dl (8.4-10.2); Carbon Dioxide 27 mmol/L (22-30); Chloride 106 mmol/L (98-107); Estimated Creatinine Clearance 49 ml/min; Glucose 134 mg/dl (70-99); Magnesium 2.3 mg/dl (1.6-2.3); Phosphorus 4.4 mg/dl (2.5-4.5); Sodium 142 mmol/L (135-145); eGFR > 60.00
[2024-05-12] MEDS: APRESOLINE 5 MG IV (06:04)
--- NOTE | 2024-05-12 07:38 | W.PN.HOSP.TC ---
Addendum entered and electronically signed by Sho Hsu MD 05/13/24 14:11:
Troponin elevation Nonischemic NE
-troponin peak 0.076 since trended down
Original Note:
Today's Communication/Plan
-
Glycemic control
Blood Pressure Control
Wean O2 as tolerated
encourage incentive spirometer use
Mucinex, prn robitussin
PT/OT
Assessment / Plan
Assessment / Plan
Physical Exam
General: Intubated on sedation
HEENT: NormoCephalic, Anicteric, Atraumatic, PERRLA
Respiratory: Clear to auscultation on ventilator
Cardiac: Tachy no murmurs rubs gallops
GI: Soft, Non Tender, Non Distended and decreased bowel sounds
Musculoskeletal: No Clubbing, No Cyanosis, +2 Edema shins b/l
Skin: Warm
Neuro: Awake Alert Coherent though speaks minimally
Psych: Calm Flat affect
64 HTN DM with cough fevers chills and was found to be hypoxic on arrival requiring mid flow. She was febrile in the ED and x-ray shows bilateral infiltrates. Procalcitonin is elevated with associate mild MARTIN Cr 1.3. Negative COVID and flu test.
BNP elevated 7690. Troponin trended up 0.076. Admitted to ICU, patient progressively worsened overnight desaturating despite high flow nonrebreather increased work of breathing. Concern impending respiratory failure, Patient was subsequently
intubated overnight.
PLAN:
# Pneumonia - Multifocal Community acquired pneumonia w/ fever, cough, chills, hypoxia and pulmonary infiltrates. Elevated procal.
#Septic Shock briefly required pressor overnight since weaned off
#Acute Metabolic Encephalopathy
- admitted to icu
- Intubated overnight 05/06-05/07 impending respiratory failure. Extubated 05/10
- legionella strep ua neg, mrsa swab pending, blood cultures NGTD
- Cefepime 2g q8 switched to ceftriaxone 1g daily, doxycycline iv bid switched to oral w/ placement NGT, since discontinued consistently afebrile no leukocytosis monitoring off abx
- sputum culture No growth
- CR chest appreciated acute pulm edema vs infectious
-Circulation Representative eval appreciated weaned off vent and sedation
-Seroquel for agitation delirium tapered to 25 mg HS
-speech eval appreciated appreciated appropriate for regular diet w/ thin liquids and general aspiration precautions, NGT since discontinued
-Medically stable for downgrade to IMU
#Suspect new onset Heart Failure
# Pulm Edema
#Troponin elevation likely Non-ischemic Myocardial Injury
#No h/o CAD or CHF per family, was chest pain free per reports prior to intubation/sedation
- crp/esr elevated
- trop trended to peak 0.076 since trended down
- ECHO appreciated preserved EF 55-60% no significant valve abn's
-daily weights I/O
-Lemon for accurate I/O's discontinued, passed trial of void
-Cardio eval appreciated Lasix IV 40 mg BID, Aldactone added and titrated up to 50 mg daily, Losartan also added and titrated up to 50 mg daily
#Mild MARTIN possibly cardiorenal
resolved following diuresis
cont monitoring renal function
#DKA - Initial Glucose 430, AG 19 bHB > 4. Reportedly on insulin lantus 30 hs and novolin 10 ac at home. pH is 7.39.
-anion gap and glucose since improved with insulin gtt switched to basal bolus
-cont insulin mgmt as per DM ELECTRICAL APPLIANCE SERVICER
-DM ELECTRICAL APPLIANCE SERVICER eval appreciated
-insulin regimen reduced to 6U AC and 20U HS d/t relatively low sugars (likely d/t poor appetite/oral intake)
Hypertension
-briefly treated with cardene gtt as per ICU since weaned off
-cont Lasix as above
-started on Coreg, Amlodipine, Losartan, Aldactone cont
-monitor and adjust antihypertensive regimen as necessary
#Iron Deficiency Anemia
#Anemia of Chronic disease
H&H stable/improving
B12 Folate non-deficient
Iron Studies appreciated as above
IV iron ordered, eventual transition to PO iron
PT/OT appreciated SNF rehab
DVT PPX - lovenox sq
Code status - full code
Discussed with patient, patient's daughter Cammy, and Nurse
I spent a total of 50 minutes with the patient or on the floor. More than 50% of this time involved counseling and coordination of care.
Anticipated Discharge: 24 - 48 hours
Subjective/Interval History
-
Date of Service: May 12, 2024
No acute distress. Appears comfortable, flat affect. Speaks minimally. Denies pain
Objective Data
-
Labs:
Laboratory Results
05/12/24
05:07
WBC 10.7
Hgb 9.2 L
Hct 27.5 L
Plt Count 327
Sodium 142
Potassium 5.0
Chloride 106
Carbon Dioxide 27
BUN 49 H
Creatinine 1.0
Glucose 134 H
Calcium 8.7
Vital Signs:
Vital Signs
Temp Pulse Resp BP Pulse Ox
99.8 F 95 24 174/95 95
05/12/24 03:49 05/12/24 06:04 05/12/24 06:00 05/12/24 06:04 05/12/24 06:00
I&O
05/11/24 05/12/24 05/13/24
06:59 06:59 06:59
Intake Total 1734.1 / 1846.6 1157.5 / 1157.5
Output Total 2580 / 2580 1240 / 1240
Balance -845.9 / -733.4 -82.5 / -82.5
[2024-05-12] MEDS: PROTONIX IV 40 MG IV (08:08)
[2024-05-12] MEDS: LASIX 40 MG IV ×2 (08:08→16:46)
[2024-05-12] MEDS: NOVOLOG FLEXPEN-MODERATE RESISTANCE SC ×2 (08:08→12:45)
[2024-05-12] MEDS: NSS (PRESERVATIVE FREE) 10 ML IV (08:08)
[2024-05-12] MEDS: ALDACTONE 25 MG PO ×2 (08:09→15:15)
[2024-05-12] MEDS: COREG 12.5 MG PO ×2 (08:09→21:22)
[2024-05-12] MEDS: COZAAR 25 MG PO ×2 (08:09→15:15)
[2024-05-12] MEDS: ASPIR LOW (ENTERIC COATED) 81 MG PO (08:09)
[2024-05-12] MEDS: SEROQUEL 25 MG PO ×2 (08:10→21:22)
[2024-05-12] MEDS: NORVASC 10 MG PO (08:10)
[2024-05-12] MEDS: FLUSH (NSS) 2 FLUSH IV ×2 (08:10→14:53)
--- NOTE | 2024-05-12 09:00 | PTCARENOTE ---
Rec'd pt awake and alert this am resting in bed. Overall remains with a very flat affect. Is able to talk and overall conversation is appropriate when she will answer questions but conversation amount is limited and most of the time will not speak
or engage in conversation unless a direct question is asked. WINTERS- at times will move arms and legs restlessly but not trying to get oob currently. Skin is vargas wm and dry. Respirs are shallow and sl tachypnic but non-labored. Currently on 6L midflow.
Pt denies pain but c/o feeling congested. Coughing a moist non-prod cough. BS in general are diminished with scattered crackles throughout. Monitor SR with isolated pVC's. + pulses. No edema. VS as documented. BP elevated this am but all am
antihypertensives given. Abd is round and soft with + BS. Lemon intact for yellow urine with some sediment. Capped ints intact L Upper arm and L forearm. R arm DL picc intact. Site wnl. Pt repositioned. Pre breakfast glucose was 141- pt informed
that she need to eat breakfast so that we can properly dose her Insulin.. Pt made aware of plan of care. Call bolaños in reach.
[2024-05-12] MEDS: NOVOLOG FLEXPEN 10 UNITS SC (09:33)
--- NOTE | 2024-05-12 10:30 | PTCARENOTE ---
Pt was resting then started to get more restless- c/o bladder/malik burning discomfort- noted that pt has not really diuresed much at all 30-60 mls post Lasix from malik. Pts bladder distended and noted some leaking around the malik. Bladder scanned
for 1260 mls. Malik removed and pt assisted to the commode- voided 800 mls. Also incont of mod amt of loose brown stool. Complete CHG bath given. Currently resting oob. Call bolaños in reach and pt encouraged again to use the call bolaños and let us know
when she is uncomfortable or if she needs anything. Tends to not interact much unless directly asked questions.
[2024-05-12] MEDS: NOVOLOG FLEXPEN SC (12:44)
[2024-05-12 12:51] LABS: Glucose - Point of Care 72 mg/dl (70-99)
--- NOTE | 2024-05-12 13:00 | PTCARENOTE ---
Pre lunch glucose is 72- pt encouraged to eat as again told that she needs to eat to allow us to dose her Insulin correctly. Remains sitting oob in the chair. Used the commode for yellow urine. VS as documented. Diabetes management updated.
--- NOTE | 2024-05-12 13:40 | PTCARENOTE ---
Pt ate about 40-50%of her meal at best. Apple juice, 2 robin crackers, 2 bites of meatloaf and 1/2 of sweet potatoes, Rechecked glucose after eating and glucose 112. Assisted back to bed after using the commode. Gait remains weak and
unsteady-needs assist of 2 or 1 and a walker. Bed alarm on as pt needs reminding to call staff if assistance needed. Call bolaños in reach.
[2024-05-12 13:46] LABS: Glucose - Point of Care 112 mg/dl (70-99)
--- NOTE | 2024-05-12 14:37 | CM ---
CM following re: discharge planning.
Reviewed pt's chart, met with pt and spoke to pt's daughter Cammy over the phone to update on discharge plan progress.
The cost of Jardiance checked with [facility] pharmacy, covers 100% by insurance, Farxiga is not on pt's profile - per pharmacist.
PT and OT evaluations noted - SNF level of care recommended. Both [pt and her daughter are aware, expressed their agreement. A list of SNFs provided. [facility] SN[facility]: [facility], [facility], [facility]. A
referral to above SNFs made.
D/C plan: preferred SNF.
CM will follow to assist pt with discharge to a preferred SNF.
[2024-05-12] MEDS: FERRLECIT 110 MG IV (14:52)
--- NOTE | 2024-05-12 15:20 | PTCARENOTE ---
Dozing intermittently. Cozaar 25 mg and Aldactone 25mg po given per orders. Call bolaños in reach.
[2024-05-12 16:25] LABS: Glucose - Point of Care 141 mg/dl (70-99)
[2024-05-12] MEDS: FLUSH (NSS) 1 FLUSH IV (16:46)
--- NOTE | 2024-05-12 17:00 | PTCARENOTE ---
Resting when not disturbed. Assessment is unchanged from earllier. Remains on 4L midflow with sats of 91-93%
[2024-05-12 17:11] LABS: Glucose - Point of Care 157 mg/dl (70-99)
[2024-05-12] MEDS: NOVOLOG FLEXPEN-MODERATE RESISTANCE 1 UNITS SC (17:45)
[2024-05-12] MEDS: LOVENOX 40 MG SC (17:46)
[2024-05-12] MEDS: NOVOLOG FLEXPEN 6 UNITS SC (17:46)
--- NOTE | 2024-05-12 19:01 | W.PN.CARDCBS ---
Today's Communication / Plan
-
Continue IV Lasix, monitor renal function closely, wean oxygen as able
Antihypertensives uptitrated, hopefully will result in better blood pressure control
Impression / Plan
-
Family Physician: Yenifer Trent
Communications Instructor: Initial consult Dr. Sandoval
Impression:
Acute hypoxic respiratory failure requiring intubation on 05/07/2024 - now extubated
Pulmonary edema
Acute heart failure with preserved ejection fraction, proBNP 7690
Abnormal troponin, suspect nonischemic myocardial injury secondary to above
DKA
MARTIN
Hypertension
Diabetes
Plan:
-Acute hypoxic respiratory failure requiring intubation on 05/07/2024. Now extubated to supplemental O2 via NC.
-Suspect acute HFpEF
-Elevated proBNP 7690
-CXR with bilateral infiltrates c/w pulm edema
-TTE with NL biV function and no sig valve dz
-Cont lasix 40mg BID
-Follow daily weights and Cr/electrolytes
-Increase spironolactone
-Consider SGLT2
-Abnormal troponin, peaked at 0.076. Suspect nonischemic myocardial injury secondary to acute hypoxic respiratory failure, acute heart failure
-Would tentatively plan for outpatient stress test
Discussed with daughter at bedside as well as breaker unit assembler
HPI 05/07/2024:
Patient is a 64-year-old female with past medical history significant for diabetes and hypertension who presented to emergency department 05/06/2024 with fevers, chills and worsening cough. Patient was found to be hypoxic on arrival requiring mid
flow oxygen. She was found to have a fever of 101 on arrival. She tested negative for COVID and the flu. Chest x-ray with bilateral alveolar opacification. Pro-Moises elevated at 1.39. proBNP elevated at 7690. Abnormal troponin initially 0.052
and trending upward at time of this evaluation 0.076. EKG showed sinus tachycardia at 120 bpm without ischemic changes. Patient did receive a dose of IV Lasix in emergency department. Patient briefly required pressor now hypertensive. She
developed worsening hypoxemia requiring intubation on morning of 05/07/2024. She also got an additional 40 mg IV Lasix
Patient and her daughter have been dealing with upper respiratory symptoms for over a week. They were using [id number] cold and flu medication without improvement of symptoms. Patient's daughter reports she did see a deputy sheriff chief in [place]
several years ago and was told she had no cardiac issues. Prior to her illness she was able to perform chores around the house and go up and down the stairs without cardiac symptoms.
History is limited given patient is currently intubated. Current information is obtained by review of prior medical records, coordinating providers and discussion with daughter.
Progress Note - Communications Instructor
Subjective
Date of Service: May 12, 2024
Patient seen on morning rounds. Resting comfortably, remains in the ICU. Not reporting any shortness of breath but still requiring supplemental oxygen. No chest discomfort.
Objective
Labs:
05/12/24 05:07
05/12/24 05:07
Labs
Hgb 9.2 g/dL (12.0-16.0) L 05/12/24 05:07
Hct 27.5 % (37.0-47.0) L 05/12/24 05:07
Plt Count 327 10^3/uL (130-400) 05/12/24 05:07
PT 14.3 Sec (11.4-14.6) 05/07/24 04:34
INR 1.12 05/07/24 04:34
APTT 40.1 Sec (23.4-35.0) H 05/07/24 04:34
Sodium 142 mmol/L (135-145) 05/12/24 05:07
Potassium 5.0 mmol/L (3.5-5.1) 05/12/24 05:07
BUN 49 mg/dl (7-17) H 05/12/24 05:07
Creatinine 1.0 mg/dL (0.6-1.0) 05/12/24 05:07
Glucose 134 mg/dl (70-99) H 05/12/24 05:07
Vital Signs and I&O:
Vital Signs
Temp Pulse Resp BP Pulse Ox
100.1 F 95 22 157/89 92
05/12/24 16:40 05/12/24 17:00 05/12/24 17:00 05/12/24 17:00 05/12/24 17:04
Vital Signs
Temp Pulse Resp BP Pulse Ox
100.1 F 95 22 157/89 92
05/12/24 16:40 05/12/24 17:00 05/12/24 17:00 05/12/24 17:00 05/12/24 17:04
Intake & Output
05/10/24 05/11/24 05/12/24 05/13/24
06:59 06:59 06:59 06:59
Intake Total 2390.0 / 2472.8 1734.1 / 1846.6 1157.5 / 1157.5 610 / 610
Output Total 2355 / 2430 2580 / 2580 1240 / 1240 2079 / 2079
Balance 35.0 / 42.8 -845.9 / -733.4 -82.5 / -82.5 -1470 / -1470
Physical Exam
Physical Exam
Gen: NAD, AAOx3
HEENT: NC/AT, sclera anicteric
Neck: No JVD
CV: RRR, NL s1/s2, no M/R/G
Lungs: No increased work of breathing on supplemental O2 via nasal cannula
Abd: S/ND
Ext: No LE edema
Skin: Warm, dry
Neuro: Non-focal
--- NOTE | 2024-05-12 20:05 | PTCARENOTE ---
Pt's monitor alarming VTach, 20 beat run noted at 20:01, went into pt's room and she was asleep, awakened easily to voice, BP cycled at was 145/75, pt asymptomatic, denies chest pain, Lynnette SOTO was watching monitors when this happened and is
aware, ordered labs at this time.
[2024-05-12] MEDS: MUCINEX 600 MG PO (21:22)
[2024-05-12 21:29] LABS: Hematocrit 27.4 % (37.0-47.0); Hemoglobin 9.2 g/dL (12.0-16.0)
[2024-05-12 21:41] LABS: Blood Urea Nitrogen 44 mg/dl (7-17); Calcium 8.8 mg/dl (8.4-10.2); Carbon Dioxide 29 mmol/L (22-30); Chloride 100 mmol/L (98-107); Estimated Creatinine Clearance 55 ml/min; Glucose 145 mg/dl (70-99); Magnesium 2.1 mg/dl (1.6-2.3); Potassium 4.5 mmol/L (3.5-5.1); Sodium 137 mmol/L (135-145); eGFR > 60.00
[2024-05-12] MEDS: LANTUS 0.2 UNITS SC (21:49)
--- NOTE | 2024-05-12 22:17 | PTCARENOTE ---
Assumed care of pt at 1900. Pt is A/O x4, still with withdrawn and flat affect but has spoken more words this evening than last night. Able to transfer with x1 assist from chair to BSC and BSC to bed. No c/o pain. Pt does have some MCDOWELL, crackles
auscultated throughout all lung garza. Pt on 4L midflow, increased to 6L when in bed d/t desatting to 88-89%, pt now 96% on 6L. SR 90s with PVCs, pt has not had anymore runs of VTach, labs were WNL and did not require any repletion. See nursing
shift assessment flowsheet for full physical assessment details. Call bolaños within reach, bed alarm activated.
[2024-05-13] VITALS (13 sets, daily range): BP systolic 134–177; BP diastolic 72–98; BMI 25.1
[2024-05-13 04:20] LABS: Hematocrit 27.7 % (37.0-47.0); Hemoglobin 9.2 g/dL (12.0-16.0); Mean Corp Hgb Conc. 33.2 g/dL (33.0-37.0); Mean Corpuscular Hgb 27.5 pg (27.0-31.0); Mean Corpuscular Volume 82.9 fL (81.0-99.0); Mean Platelet Volume 10.6 fL (7.4-10.4); Platelet Count 373 10^3/uL (130-400); Red Blood Cell Count 3.34 10^6/uL (4.20-5.40); Red Cell Dist. Width 14.4 % (11.5-14.5); White Blood Cell Count 8.9 10^3/uL (4.8-10.8)
[2024-05-13 04:33] LABS: Blood Urea Nitrogen 39 mg/dl (7-17); Calcium 8.9 mg/dl (8.4-10.2); Carbon Dioxide 31 mmol/L (22-30); Chloride 102 mmol/L (98-107); Estimated Creatinine Clearance 49 ml/min; Glucose 84 mg/dl (70-99); Magnesium 2.2 mg/dl (1.6-2.3); Phosphorus 4.2 mg/dl (2.5-4.5); Potassium 4.5 mmol/L (3.5-5.1); Sodium 141 mmol/L (135-145); eGFR > 60.00
--- NOTE | 2024-05-13 05:58 | PTCARENOTE ---
Pt transferred to IMU room 3343 at around 0550, report given to ROHITH Zaragoza, pt's phone, yo, and fleece blanket were only personal belongings and were sent with patient, along with insulin pen.
--- NOTE | 2024-05-13 06:09 | PTCARENOTE ---
Received Pt as transfer from ICU, report given by Sophia NEWBERRY. Pt welcomed to IMU.Pt has no complaints at this time. Call bolaños within reach. Bed alarm on.
[2024-05-13] MEDS: APRESOLINE 5 MG IV (06:33)
--- NOTE | 2024-05-13 06:49 | PTCARENOTE ---
Pt bp 177/95, PRN medication given (see MAR). Revaluate, now 157/81.
[2024-05-13 08:23] LABS: Glucose - Point of Care 98 mg/dl (70-99)
[2024-05-13] MEDS: COZAAR 50 MG PO (08:26)
[2024-05-13] MEDS: NOVOLOG FLEXPEN-MODERATE RESISTANCE SC ×3 (08:26→18:14)
[2024-05-13] MEDS: NOVOLOG FLEXPEN 6 UNITS SC ×2 (08:26→18:15)
[2024-05-13] MEDS: NORVASC 10 MG PO (08:27)
[2024-05-13] MEDS: ALDACTONE 50 MG PO (08:27)
[2024-05-13] MEDS: MUCINEX 600 MG PO ×2 (08:27→20:09)
[2024-05-13] MEDS: COREG 12.5 MG PO ×2 (08:27→20:09)
[2024-05-13] MEDS: ASPIR LOW (ENTERIC COATED) 81 MG PO (08:28)
[2024-05-13] MEDS: PROTONIX IV 40 MG IV (08:28)
[2024-05-13] MEDS: LASIX 40 MG IV ×2 (08:28→17:08)
[2024-05-13] MEDS: NSS (PRESERVATIVE FREE) 10 ML IV (08:28)
--- NOTE | 2024-05-13 08:47 | W.PN.HOSP.TC ---
Today's Communication/Plan
-
encourage incentive spirometer use
wean O2 supplementation as tolerated
scheduled mucinex, robitussin prn
cont diuresis
Iron supplementation, monitor H&H
glycemic control
blood pressure control
Assessment / Plan
Assessment / Plan
Physical Exam
General: no acute distress appears comfortable at this time
HEENT: NormoCephalic, Anicteric, Atraumatic, PERRLA
Respiratory: Clear on oxygen supplementation 5L
Cardiac: S1 S2 mild Tachy no murmurs rubs gallops
GI: Soft, Non Tender, Non Distended and decreased bowel sounds
Musculoskeletal: No Clubbing, No Cyanosis, no Edema
Skin: Warm
Neuro: Awake Alert Conversant Coherent appears more talkative/more positive mood compared to yesterday
Psych: Calm Flat affect
64 HTN DM with cough fevers chills and was found to be hypoxic on arrival requiring mid flow. She was febrile in the ED and x-ray shows bilateral infiltrates. Procalcitonin is elevated with associate mild MARTIN Cr 1.3. Negative COVID and flu test.
BNP elevated 7690. Troponin trended up 0.076. Admitted to ICU, patient progressively worsened overnight desaturating despite high flow nonrebreather increased work of breathing. Concern impending respiratory failure, Patient was subsequently
intubated overnight.
PLAN:
# Pneumonia - Multifocal Community acquired pneumonia w/ fever, cough, chills, hypoxia and pulmonary infiltrates. Elevated procal.
#Septic Shock briefly required pressor overnight since weaned off
#Acute Metabolic Encephalopathy
#Acute Hypoxic Respiratory Failure
- admitted to icu eventually downgraded to IMU
- Intubated overnight 05/06-05/07 impending respiratory failure. Extubated 05/10
- legionella strep ua neg, mrsa swab pending, blood cultures NGTD
- Cefepime 2g q8 switched to ceftriaxone 1g daily, doxycycline iv bid switched to oral w/ placement NGT, since discontinued consistently afebrile no leukocytosis monitoring off abx
- sputum culture No growth
- CR chest appreciated acute pulm edema vs infectious
-Technician Anatomic Pathology eval appreciated weaned off vent and sedation extubated as above
-Seroquel for agitation delirium tapered to 25 mg HSPRN agitation/insomnia, anticipate discontinuation prior to discharge depending on usage
-speech eval appreciated appropriate for regular diet w/ thin liquids and general aspiration precautions, NGT since discontinued
-Wean O2 supplementation as tolerated, Incentive Spirometer, not tolerating BIPAP bedtime
#Suspect new onset Heart Failure
# Pulm Edema
#Troponin elevation likely Non-ischemic Myocardial Injury
#No h/o CAD or CHF per family, was chest pain free per reports prior to intubation/sedation
- crp/esr elevated
- trop trended to peak 0.076 since trended down
- ECHO appreciated preserved EF 55-60% no significant valve abn's
-daily weights I/O
-Lemon for accurate I/O's discontinued, passed trial of void
-Cardio eval appreciated Lasix IV 40 mg BID, Aldactone added and titrated up to 50 mg daily, Losartan also added and titrated up to 50 mg daily
#Mild MARTIN possibly cardiorenal
resolved following diuresis
cont monitoring renal function
#DKA - Initial Glucose 430, AG 19 bHB > 4. Reportedly on insulin lantus 30 hs and novolin 10 ac at home. pH is 7.39.
-anion gap and glucose since improved with insulin gtt switched to basal bolus
-cont insulin mgmt as per DM PASSENGER BRAKEMAN
-DM PASSENGER BRAKEMAN eval appreciated
-insulin regimen reduced to 6U AC and 20U HS d/t relatively low sugars (likely d/t poor appetite/oral intake)
Hypertension
-briefly treated with cardene gtt as per ICU since weaned off
-cont Lasix as above
-started on Coreg, Amlodipine, Losartan, Aldactone cont
-monitor and adjust antihypertensive regimen as necessary
#Iron Deficiency Anemia
#Anemia of Chronic disease
H&H stable/improving
B12 Folate non-deficient
Iron Studies appreciated as above
IV iron ordered, eventual transition to PO iron
PT/OT appreciated SNF rehab
DVT PPX - lovenox sq
Code status - full code
Discussed with patient and patient's daughter Cammy
I spent a total of 50 minutes with the patient or on the floor. More than 50% of this time involved counseling and coordination of care.
Anticipated Discharge: 24 - 48 hours
Subjective/Interval History
-
Date of Service: May 13, 2024
No acute distress resting comfortably in bed. Mood appears improved compared to yesterday. More cheerful conversant though still somewhat reserved. Coughing persists. Remains dependent on oxygen supplementation
Objective Data
-
Labs:
Laboratory Results
05/12/24 05/13/24
21:17 04:03
WBC 8.9
Hgb 9.2 L 9.2 L
Hct 27.4 L 27.7 L
Plt Count 373
Sodium 137 141
Potassium 4.5 4.5
Chloride 100 102
Carbon Dioxide 29 31 H
BUN 44 H 39 H
Creatinine 0.9 1.0
Glucose 145 H 84
Calcium 8.8 8.9
Vital Signs:
Vital Signs
Temp Pulse Resp BP Pulse Ox
99.1 F 95 23 157/85 91
05/13/24 04:21 05/13/24 08:28 05/13/24 06:47 05/13/24 08:28 05/13/24 06:47
I&O
05/12/24 05/13/24 05/14/24
06:59 06:59 06:59
Intake Total 1157.5 / 1157.5 610 / 610
Output Total 1240 / 1240 3280 / 3280
Balance -82.5 / -82.5 -2670 / -2670
[2024-05-13 12:37] LABS: Glucose - Point of Care 74 mg/dl (70-99)
--- NOTE | 2024-05-13 12:43 | W.PN.CARDCBS ---
Today's Communication / Plan
-
Continue IV Lasix ,wean O2 as able
Impression / Plan
-
Family Physician: Yenifer Trent
K9 Handler: Initial consult Dr. Sandoval
Impression:
Acute hypoxic respiratory failure requiring intubation on 05/07/2024 - now extubated
Pulmonary edema
Acute heart failure with preserved ejection fraction, proBNP 7690
Abnormal troponin, suspect nonischemic myocardial injury secondary to above
DKA
MARTIN
Hypertension
Diabetes
Plan:
-Acute hypoxic respiratory failure requiring intubation on 05/07/2024. Now extubated to supplemental O2 via NC.
-Suspect acute HFpEF
-Elevated proBNP 7690
-CXR with bilateral infiltrates c/w pulm edema
-TTE with NL biV function and no sig valve dz
-Cont lasix 40mg BID
-Follow daily weights and Cr/electrolytes
-Cont spironolactone
-Consider SGLT2
-Abnormal troponin, peaked at 0.076. Suspect nonischemic myocardial injury secondary to acute hypoxic respiratory failure, acute heart failure
-Would tentatively plan for outpatient stress test
HPI 05/07/2024:
Patient is a 64-year-old female with past medical history significant for diabetes and hypertension who presented to emergency department 05/06/2024 with fevers, chills and worsening cough. Patient was found to be hypoxic on arrival requiring mid
flow oxygen. She was found to have a fever of 101 on arrival. She tested negative for COVID and the flu. Chest x-ray with bilateral alveolar opacification. Pro-Moises elevated at 1.39. proBNP elevated at 7690. Abnormal troponin initially 0.052
and trending upward at time of this evaluation 0.076. EKG showed sinus tachycardia at 120 bpm without ischemic changes. Patient did receive a dose of IV Lasix in emergency department. Patient briefly required pressor now hypertensive. She
developed worsening hypoxemia requiring intubation on morning of 05/07/2024. She also got an additional 40 mg IV Lasix
Patient and her daughter have been dealing with upper respiratory symptoms for over a week. They were using [id number] cold and flu medication without improvement of symptoms. Patient's daughter reports she did see a hydrogen power plant engineer in [place]
several years ago and was told she had no cardiac issues. Prior to her illness she was able to perform chores around the house and go up and down the stairs without cardiac symptoms.
History is limited given patient is currently intubated. Current information is obtained by review of prior medical records, coordinating providers and discussion with daughter.
Progress Note - K9 Handler
Subjective
Date of Service: May 13, 2024
No acute overnight events. Patient moved to the IMU overnight. Still requiring supplemental oxygen. No cardiac complaints today.
Objective
Labs:
05/13/24 04:03
05/13/24 04:03
Labs
Hgb 9.2 g/dL (12.0-16.0) L 05/13/24 04:03
Hct 27.7 % (37.0-47.0) L 05/13/24 04:03
Plt Count 373 10^3/uL (130-400) 05/13/24 04:03
PT 14.3 Sec (11.4-14.6) 05/07/24 04:34
INR 1.12 05/07/24 04:34
APTT 40.1 Sec (23.4-35.0) H 05/07/24 04:34
Sodium 141 mmol/L (135-145) 05/13/24 04:03
Potassium 4.5 mmol/L (3.5-5.1) 05/13/24 04:03
BUN 39 mg/dl (7-17) H 05/13/24 04:03
Creatinine 1.0 mg/dL (0.6-1.0) 05/13/24 04:03
Glucose 84 mg/dl (70-99) 05/13/24 04:03
Vital Signs and I&O:
Vital Signs
Temp Pulse Resp BP Pulse Ox
99.0 F 91 20 135/72 94
05/13/24 07:53 05/13/24 10:37 05/13/24 10:37 05/13/24 10:37 05/13/24 12:03
Vital Signs
Temp Pulse Resp BP Pulse Ox
99.0 F 91 20 135/72 94
05/13/24 07:53 05/13/24 10:37 05/13/24 10:37 05/13/24 10:37 05/13/24 12:03
Intake & Output
05/11/24 05/12/24 05/13/24 05/14/24
06:59 06:59 06:59 06:59
Intake Total 1734.1 / 1846.6 1157.5 / 1157.5 610 / 610
Output Total 2580 / 2580 1240 / 1240 3280 / 3280 500 / 500
Balance -845.9 / -733.4 -82.5 / -82.5 -2670 / -2670 -500 / -500
Physical Exam
Physical Exam
Gen: NAD, AAOx3
HEENT: NC/AT, sclera anicteric
Neck: No JVD
CV: RRR, NL s1/s2
Lungs: Crackles at the bases bilaterally on mid flow O2
Abd: S/ND
Ext: No LE edema
Skin: Warm, dry
Neuro: Non-focal
[2024-05-13] MEDS: NOVOLOG FLEXPEN SC (13:04)
[2024-05-13] MEDS: FERRLECIT 110 MG IV (14:24)
--- NOTE | 2024-05-13 15:46 | PTCARENOTE ---
Rec'd pt this AM. OOB with min assist to BSC. voiding without difficulty. O2 7-10L NC. poor appetite. resting comfortably. Daughter, crystal requesting [facility] for rehab when pt is stable for d.c.
[2024-05-13 17:58] LABS: Glucose - Point of Care 144 mg/dl (70-99)
[2024-05-13] MEDS: LOVENOX 40 MG SC (18:15)
[2024-05-13 21:26] LABS: Glucose - Point of Care 87 mg/dl (70-99)
[2024-05-13] MEDS: LANTUS 0.1 UNITS SC (22:55)
--- NOTE | 2024-05-13 22:58 | PTCARENOTE ---
Pt glucose in 80's Pt did not eat much of dinner and refused HS snack. Verify with SUPERVISING DEPUTY about Lantus 20U order, now changed to 10U. Pt agree able to drink apple juice and a bit of yogurt. Vitals stable at this time. bed alarm on. Call bolaños within
reach.
[2024-05-13 23:06] LABS: Glucose - Point of Care 77 mg/dl (70-99)
[2024-05-13] MEDS: LANTUS SC (23:08)
[2024-05-13] MEDS: SEROQUEL 25 MG PO (23:15)
[2024-05-14] VITALS (12 sets, daily range): BP systolic 116–175; BP diastolic 67–98; BMI 24.3
[2024-05-14 04:45] LABS: Hematocrit 29.2 % (37.0-47.0); Hemoglobin 9.7 g/dL (12.0-16.0); Mean Corp Hgb Conc. 33.2 g/dL (33.0-37.0); Mean Corpuscular Hgb 28.4 pg (27.0-31.0); Mean Corpuscular Volume 85.6 fL (81.0-99.0); Mean Platelet Volume 11.2 fL (7.4-10.4); Platelet Count 404 10^3/uL (130-400); Red Blood Cell Count 3.41 10^6/uL (4.20-5.40); Red Cell Dist. Width 14.1 % (11.5-14.5); White Blood Cell Count 7.5 10^3/uL (4.8-10.8)
[2024-05-14 05:07] LABS: Blood Urea Nitrogen 33 mg/dl (7-17); Calcium 8.8 mg/dl (8.4-10.2); Carbon Dioxide 30 mmol/L (22-30); Chloride 98 mmol/L (98-107); Estimated Creatinine Clearance 49 ml/min; Glucose 127 mg/dl (70-99); Magnesium 2.1 mg/dl (1.6-2.3); Potassium 4.3 mmol/L (3.5-5.1); Sodium 139 mmol/L (135-145); eGFR > 60.00
--- NOTE | 2024-05-14 07:35 | PN.DE.MGMTRT ---
Insulin Management
- -
05/14/2024: Diabetes Management F/U:
Patient with w/hx of cough fevers and shortness of breath. PMH: HTN, IDDM. Patient with multifocal Community acquired pneumonia, respiratory failure, now intubated. Was noted for Hyperglycemia with a glucose level of 430 and in DKA with a GAP of
19. DKA protocol was initiated.
Prior to admission was taking Lantus 30 units and AC NovoLog 10 units, A1C 11.1%, cr 1.3, eGFR 45.92.
Pt awake, A/O x3, sitting up in bed, pleasant, able to discuss diabetes mgt.
05/09 Steroids stopped. Transitioned off drip to home dose Lantus 30 units, with NovoLog Q 6 hours and corrective insulin.
05/10 Extubated. 05/11 Tube feeds discontinued, started on diet. Noted for poor appetite.
This morning pt states she has no appetite and is not eating much, mainly due to bland food provided here.
Glucose low normal w/o hypoglycemia. HS glucose was 77 , fasting 127 this AM and premeal range 77 to 144
Will reduce AC NovoLog to 4 units and Lantus to 10 units.
Instructed pt to closely monitor glucose at home and make call her PCP to make adjustments to her insulin dose if AC blood suagra start trending up.
05/11 Pt requested for refill of test strips to her [employer] glucose meter. Rx sent to her pharmacy
Diabetes History
- -
Type of Diabetes: 2 requiring insulin
Pre-Admission Diabetes Regimen
05/14/24
04:11
Creatinine 1.0
Lab Results
Hemoglobin A1c 11.1 % (4.0-5.6) H 05/07/24 04:34
Insulin Pump Settings
IP Diabetes Regimen
05/13/24 05/13/24 05/13/24
08:12 12:25 17:47
Glucose
POC Glucose 98 74 144 H
05/13/24 05/13/24 05/14/24
21:15 22:55 04:11
Glucose 127 H
POC Glucose 87 77
Patient Education
[2024-05-14 08:21] LABS: Glucose - Point of Care 134 mg/dl (70-99)
[2024-05-14] MEDS: NOVOLOG FLEXPEN-MODERATE RESISTANCE SC (08:43)
[2024-05-14] MEDS: NOVOLOG FLEXPEN SC (08:46)
--- NOTE | 2024-05-14 12:12 | W.PN.CARDCBS ---
Addendum entered and electronically signed by Ashley Herrera, 05/14/24 12:22:
Patient is on Coreg; will not change to Toprol
Original Note:
Today's Communication / Plan
-
Continue optimization of blood pressure, uncontrolled
Continue IV Lasix today and hopefully transition to Lasix 40 mg daily starting tomorrow
Add Farxiga 10 mg 1 p.o. daily
Impression / Plan
-
Family Physician: Yenifer Trent
Software Release Engineer: Initial consult Dr. Sandoval
Impression:
Acute hypoxic respiratory failure requiring intubation on 05/07/2024 - now extubated
Pulmonary edema
Acute heart failure with preserved ejection fraction, proBNP 7690
Abnormal troponin, suspect nonischemic myocardial injury secondary to above
DKA
MARTIN
Hypertension
Diabetes
Plan:
Pneumonia/acute hypoxic respiratory failure requiring intubation 05/07/2024
-Now extubated to supplemental O2 via NC.
-Management per pulmonary and primary
-Continue IV antibiotics
-Incentive spirometry, wean O2 as able
Acute heart failure with preserved ejection fraction
-Elevated proBNP 7690
-CXR with bilateral infiltrates c/w pulm edema
-TTE with NL biV function and no sig valve dz
-Volume status appears to be improving with IV diuresis and approximately 13 pound weight loss
-Patient was not on diuretics prior to admission. Will transition to Lasix 40 mg daily tomorrow
-Follow daily weights and Cr/electrolytes
-Cont spironolactone
-Will add Farxiga 10 mg 1 p.o. daily; consult case management
Hypertension with uncontrolled blood pressures
-Add Toprol-XL 25 mg daily. If blood pressure still elevated would increase losartan
-Abnormal troponin, peaked at 0.076. Suspect nonischemic myocardial injury secondary to acute hypoxic respiratory failure, acute heart failure
-Would tentatively plan for outpatient stress test
-Continue aspirin 81 mg daily. Continue atorvastatin 80 mg daily.
Type 2 diabetes mellitus, uncontrolled
-Management per primary
HPI 05/07/2024:
Patient is a 64-year-old female with past medical history significant for diabetes and hypertension who presented to emergency department 05/06/2024 with fevers, chills and worsening cough. Patient was found to be hypoxic on arrival requiring mid
flow oxygen. She was found to have a fever of 101 on arrival. She tested negative for COVID and the flu. Chest x-ray with bilateral alveolar opacification. Pro-Moises elevated at 1.39. proBNP elevated at 7690. Abnormal troponin initially 0.052
and trending upward at time of this evaluation 0.076. EKG showed sinus tachycardia at 120 bpm without ischemic changes. Patient did receive a dose of IV Lasix in emergency department. Patient briefly required pressor now hypertensive. She
developed worsening hypoxemia requiring intubation on morning of 05/07/2024. She also got an additional 40 mg IV Lasix
Patient and her daughter have been dealing with upper respiratory symptoms for over a week. They were using [id number]-kmz-[id number] cold and flu medication without improvement of symptoms. Patient's daughter reports she did see a manager outpatient in [place]
several years ago and was told she had no cardiac issues. Prior to her illness she was able to perform chores around the house and go up and down the stairs without cardiac symptoms.
History is limited given patient is currently intubated. Current information is obtained by review of prior medical records, coordinating providers and discussion with daughter.
Progress Note - Software Release Engineer
Subjective
Date of Service: May 14, 2024
Patient seen and examined. Remains on supplemental oxygen but states breathing overall feels slightly better. No chest pain or pressure. Resolved lower extremity edema
Objective
Labs:
05/14/24 04:11
05/14/24 04:11
Labs
Hgb 9.7 g/dL (12.0-16.0) L 05/14/24 04:11
Hct 29.2 % (37.0-47.0) L 05/14/24 04:11
Plt Count 404 10^3/uL (130-400) H 05/14/24 04:11
PT 14.3 Sec (11.4-14.6) 05/07/24 04:34
INR 1.12 05/07/24 04:34
APTT 40.1 Sec (23.4-35.0) H 05/07/24 04:34
Sodium 139 mmol/L (135-145) 05/14/24 04:11
Potassium 4.3 mmol/L (3.5-5.1) 05/14/24 04:11
BUN 33 mg/dl (7-17) H 05/14/24 04:11
Creatinine 1.0 mg/dL (0.6-1.0) 05/14/24 04:11
Glucose 127 mg/dl (70-99) H 05/14/24 04:11
Vital Signs and I&O:
Vital Signs
Temp Pulse Resp BP Pulse Ox
98.9 F 93 21 175/93 98
05/14/24 11:05 05/14/24 08:00 05/14/24 08:00 05/14/24 08:00 05/14/24 08:30
Vital Signs
Temp Pulse Resp BP Pulse Ox
98.9 F 93 21 175/93 98
05/14/24 11:05 05/14/24 08:00 05/14/24 08:00 05/14/24 08:00 05/14/24 08:30
Intake & Output
05/12/24 05/13/24 05/14/24 05/15/24
06:59 06:59 06:59 06:59
Intake Total 1157.5 / 1157.5 610 / 610 360 / 360
Output Total 1240 / 1240 3280 / 3280 1650 / 1650
Balance -82.5 / -82.5 -2670 / -2670 -1290 / -1290
Physical Exam
Physical Exam
Gen: NAD, AAOx3
HEENT: NC/AT, sclera anicteric
Neck: No JVD
CV: RRR, NL s1/s2
Lungs: Crackles at the bases bilaterally on mid flow O2
Abd: S/ND
Ext: No LE edema
Neuro: Non-focal
[2024-05-14] MEDS: COREG 12.5 MG PO ×2 (12:25→21:09)
[2024-05-14] MEDS: PROTONIX 40 MG PO (12:26)
[2024-05-14] MEDS: MUCINEX 600 MG PO ×2 (12:26→21:10)
[2024-05-14] MEDS: ASPIR LOW (ENTERIC COATED) 81 MG PO (12:26)
[2024-05-14] MEDS: NORVASC 10 MG PO (12:26)
[2024-05-14] MEDS: COZAAR 25 MG PO (12:27)
[2024-05-14] MEDS: LASIX 40 MG IV ×2 (12:27→17:00)
[2024-05-14] MEDS: ALDACTONE 50 MG PO (12:28)
[2024-05-14] MEDS: COZAAR 50 MG PO ×2 (12:30→21:10)
[2024-05-14 12:36] LABS: Glucose - Point of Care 165 mg/dl (70-99)
[2024-05-14] MEDS: NOVOLOG FLEXPEN 4 UNITS SC ×2 (12:44→18:30)
[2024-05-14] MEDS: NOVOLOG FLEXPEN-MODERATE RESISTANCE 1 UNITS SC ×2 (12:44→18:29)
--- NOTE | 2024-05-14 13:17 | W.PN.HOSP.TC ---
Today's Communication/Plan
-
IV lasix
wean o2 as tolerated
monitor BP
oob/pt
monitor POC
Assessment / Plan
Assessment / Plan
Physical Exam
General: no acute distress appears comfortable at this time
HEENT: NormoCephalic, Anicteric, Atraumatic, PERRLA
Respiratory: Clear on oxygen supplementation 5L
Cardiac: S1 S2 mild Tachy no murmurs rubs gallops
GI: Soft, Non Tender, Non Distended and decreased bowel sounds
Musculoskeletal: No Clubbing, No Cyanosis, no Edema
Skin: Warm
Neuro: Awake Alert Conversant Coherent appears more talkative/more positive mood compared to yesterday
Psych: Calm Flat affect
64 HTN DM with cough fevers chills and was found to be hypoxic on arrival requiring mid flow. She was febrile in the ED and x-ray shows bilateral infiltrates. Procalcitonin is elevated with associate mild MARTIN Cr 1.3. Negative COVID and flu test.
BNP elevated 7690. Troponin trended up 0.076. Admitted to ICU, patient progressively worsened overnight desaturating despite high flow nonrebreather increased work of breathing. Concern impending respiratory failure, Patient was subsequently
intubated overnight.
PLAN:
# Pneumonia - Multifocal Community acquired pneumonia w/ fever, cough, chills, hypoxia and pulmonary infiltrates. ?viral
#Septic Shock briefly required pressor overnight since weaned off
#Acute Metabolic Encephalopathy
#Acute Hypoxic Respiratory Failure
- Intubated overnight 05/06-05/07 impending respiratory failure. Extubated 05/10
- legionella strep ua neg, mrsa swab pending, blood cultures NGTD
- Cefepime 2g q8 switched to ceftriaxone 1g daily, doxycycline iv bid switched to oral w/ placement NGT, since discontinued consistently afebrile no leukocytosis monitoring off abx
- sputum culture takien during bronchoscopy with no growth. S/p bronch 05/07-no abnormalities found.
- CR chest appreciated acute pulm edema vs infectious
-Target Aircraft Controller eval appreciated weaned off vent and sedation extubated as above
-Seroquel for agitation delirium tapered to 25 mg HSPRN agitation/insomnia, anticipate discontinuation prior to discharge depending on usage
-speech eval appreciated appropriate for regular diet w/ thin liquids and general aspiration precautions, NGT since discontinued
-Wean O2 supplementation as tolerated, Incentive Spirometer, not tolerating BIPAP bedtime
#Suspect new onset Heart Failure
# Pulm Edema
#Troponin elevation likely Non-ischemic Myocardial Injury
#No h/o CAD or CHF per family, was chest pain free per reports prior to intubation/sedation
- crp/esr elevated
- trop trended to peak 0.076 since trended down
- ECHO appreciated preserved EF 55-60% no significant valve abn's
-daily weights I/O
-Lemon for accurate I/O's discontinued, passed trial of void
-Cardio eval appreciated Lasix IV 40 mg BID, Aldactone added and titrated up to 50 mg daily, Losartan also added and titrated up to 50 mg daily
#Mild MARTIN possibly cardiorenal
resolved following diuresis
cont monitoring renal function
#DKA - Initial Glucose 430, AG 19 bHB > 4. Reportedly on insulin lantus 30 hs and novolin 10 ac at home. pH is 7.39.
-anion gap and glucose since improved with insulin gtt switched to basal bolus
-cont insulin mgmt as per DM MISSION SYSTEMS ENGINEER
-DM MISSION SYSTEMS ENGINEER eval appreciated
-insulin regimen adjusted to to 4U AC and 10U HS d/t relatively low sugars (likely d/t poor appetite/oral intake)
Hypertension Primary -elevated
-briefly treated with cardene gtt as per ICU since weaned off
-cont Lasix as above
-started on Coreg, Amlodipine, Losartan, Aldactone cont
-monitor and adjust antihypertensive regimen as necessary
#Iron Deficiency Anemia
#Anemia of Chronic disease
H&H stable/improving
B12 Folate non-deficient
Iron Studies appreciated as above
IV iron ordered, eventual transition to PO iron
PT/OT appreciated SNF rehab
DVT PPX - lovenox sq
Code status - full code
Anticipated Discharge: > 48 hours
Subjective/Interval History
-
Date of Service: May 14, 2024
remains with cough
on midflow oxygen
BP elevated
Objective Data
-
Labs:
Laboratory Results
05/14/24
04:11
WBC 7.5
Hgb 9.7 L
Hct 29.2 L
Plt Count 404 H
Sodium 139
Potassium 4.3
Chloride 98
Carbon Dioxide 30
BUN 33 H
Creatinine 1.0
Glucose 127 H
Calcium 8.8
Vital Signs:
Vital Signs
Temp Pulse Resp BP Pulse Ox
98.9 F 93 21 175/93 98
05/14/24 11:05 05/14/24 08:00 05/14/24 08:00 05/14/24 08:00 05/14/24 08:30
I&O
05/13/24 05/14/24 05/15/24
06:59 06:59 06:59
Intake Total 610 / 610 360 / 360
Output Total 3280 / 3280 1650 / 1650
Balance -2670 / -2670 -1290 / -1290
Data Reviewed
-
Total Time Spent with Patient (in minutes): 51
[2024-05-14] MEDS: FERRLECIT 110 MG IV (15:00)
--- NOTE | 2024-05-14 15:45 | CM ---
Addendum entered by Lidia Osman 05/14/24 16:12:
TC to patients [facility] pharmacy no charge for Farxiga 10 mg po daily.
Patient currently has a RX for Jardiance at the pharmacy ready for mixing picker tender, also no charge.
Original Note:
TC to daughter Kelsie, referral requested for [facility] as she works with them, that would be her 1st choice.
Referral placed via [facility].
[2024-05-14 17:01] LABS: Glucose - Point of Care 163 mg/dl (70-99)
[2024-05-14] MEDS: LOVENOX 40 MG SC (18:28)
[2024-05-14] MEDS: NOVOLOG FLEXPEN-MODERATE RESISTANCE 4 UNITS SC (18:30)
--- NOTE | 2024-05-14 20:00 | PTCARENOTE ---
Received pt from day shift. Pt aaox3. 96% on 5L MFNC. VSS. Pt resting in bed with family at bedside. Pt has call bolaños in reach.
[2024-05-14] MEDS: LANTUS 0.1 UNITS SC (21:19)
[2024-05-14 21:30] LABS: Glucose - Point of Care 225 mg/dl (70-99)
[2024-05-15] VITALS (16 sets, daily range): BP systolic 119–167; BP diastolic 74–97; PULSE 84–91; O2SAT 97; BMI 24.5
[2024-05-15] MEDS: APRESOLINE 5 MG IV (02:04)
[2024-05-15 05:31] LABS: Hematocrit 29.1 % (37.0-47.0); Hemoglobin 9.6 g/dL (12.0-16.0); Mean Corpuscular Hgb 28.4 pg (27.0-31.0); Mean Corpuscular Volume 86.1 fL (81.0-99.0); Mean Platelet Volume 11.3 fL (7.4-10.4); Platelet Count 420 10^3/uL (130-400); Red Blood Cell Count 3.38 10^6/uL (4.20-5.40); Red Cell Dist. Width 13.8 % (11.5-14.5); White Blood Cell Count 7.3 10^3/uL (4.8-10.8)
[2024-05-15 05:45] LABS: Blood Urea Nitrogen 34 mg/dl (7-17); Calcium 8.6 mg/dl (8.4-10.2); Carbon Dioxide 27 mmol/L (22-30); Chloride 102 mmol/L (98-107); Estimated Creatinine Clearance 49 ml/min; Glucose 244 mg/dl (70-99); HDL Cholesterol 35 mg/dl; LDL Cholesterol, Calculated 190 mg/dl; Magnesium 2.1 mg/dl (1.6-2.3); Potassium 4.5 mmol/L (3.5-5.1); Sodium 139 mmol/L (135-145); Total Cholesterol 267 mg/dl (50-199); Triglyceride 213 mg/dl (10-149); Very Low Density Lipoprotein 42 mg/dl (0-30); eGFR > 60.00
[2024-05-15 05:54] LABS: NT-proBNP 1460 pg/ml
[2024-05-15 08:08] LABS: Glucose - Point of Care 239 mg/dl (70-99)
--- NOTE | 2024-05-15 08:25 | PN.DE.MGMTRT ---
Insulin Management
- -
05/15/2024: Diabetes Management Follow up:
Patient with w/hx of cough fevers and shortness of breath. PMH: HTN, IDDM. Patient with multifocal Community acquired pneumonia, respiratory failure. Was noted for Hyperglycemia with a glucose level of 430 and in DKA with a GAP of 19. DKA protocol
was initiated.
Prior to admission was taking Lantus 30 units and AC NovoLog 10 units, A1C 11.1%, cr 1.3, eGFR 45.92.
Pt awake, A/O x3, sitting up in bed, pleasant, able to discuss diabetes mgt.
05/09 Steroids stopped. Transitioned off drip to home dose Lantus 30 units, with NovoLog Q 6 hours and corrective insulin.
05/10 Extubated. 05/11 Tube feeds discontinued, started on diet. Noted for poor appetite.
05/14 lantus reduced from 30 units to 10 units, fasting glucose this AM 239. 05/15 Farxiga 10 mg daily has been started by cardiology. Will increase hs lantus to 16 units and check 3am glucose, continue novolog 4 units AC decrease moderate corrective
to low corrective insulin.
05/11 Pt requested for refill of test strips to her [employer] Next glucose meter. Rx sent to her pharmacy
Diabetes History
- -
Type of Diabetes: 2 requiring insulin
Pre-Admission Diabetes Regimen
05/15/24
05:04
Creatinine 1.0
Lab Results
Hemoglobin A1c 11.1 % (4.0-5.6) H 05/07/24 04:34
Insulin Pump Settings
IP Diabetes Regimen
05/14/24 05/14/24 05/14/24
12:25 16:50 21:19
Glucose
POC Glucose 165 H 163 H 225 H
05/15/24 05/15/24
05:04 07:56
Glucose 244 H
POC Glucose 239 H
Meal type: Dinner
Meal type: Breakfast
Amount consumed: 50%
Amount consumed: 50%
Patient Education
[2024-05-15] MEDS: MUCINEX 600 MG PO ×2 (08:33→19:42)
[2024-05-15] MEDS: ASPIR LOW (ENTERIC COATED) 81 MG PO (08:33)
[2024-05-15] MEDS: COZAAR 50 MG PO ×2 (08:33→19:41)
[2024-05-15] MEDS: NORVASC 10 MG PO (08:34)
[2024-05-15] MEDS: FARXIGA 10 MG PO (08:34)
[2024-05-15] MEDS: LASIX 40 MG IV (08:34)
[2024-05-15] MEDS: PROTONIX 40 MG PO (08:34)
[2024-05-15] MEDS: COREG 12.5 MG PO ×2 (08:34→19:41)
[2024-05-15] MEDS: ALDACTONE 50 MG PO (08:34)
[2024-05-15] MEDS: NOVOLOG FLEXPEN 4 UNITS SC ×3 (08:34→18:29)
[2024-05-15] MEDS: NOVOLOG FLEXPEN-LOW RESISTANCE 2 UNITS SC (08:43)
--- NOTE | 2024-05-15 10:16 | PTCARENOTE ---
Addendum entered by Yudelka Keller RN 05/15/24 12:04:
Attempted to wean to RA; however, POx decreased to mid 80s with patient lying in bed. O2 2L midflow placed back on patient; POx mid 90s. Encouraged patient to sit in chair longer and use IS. PT to work with patient.
Original Note:
Assumed care of patient at beginning of this shift from previous RN with 3L midflow in use and pOx 96%; able to wean to 2L midflow with POx 94%. Reviewed IS with patient; she needed a lot of cuing to correctly use it and a lot of encouragement. OOB
to chair. Lungs with crackles scattered t/o and occasional dry cough. Ox3 but with a flat affect and encouragement needed to converse. See worklist for full assessment and vital signs.
--- NOTE | 2024-05-15 11:23 | W.PN.CARDCBS ---
Today's Communication / Plan
-
RECOMMENDATION:
-Restart atorvastatin: I think it was discontinued on admission and not restarted
-Continue aspirin
-Will change IV to PO furosemide
-I suspect multivessel CADz given poorly controlled DM. Troponin elevated.
Think she would benefit from coronary angiography
Will discuss with patient
Impression / Plan
-
Family Physician: Yenifer Trent
Central Supply Technician: Initial consult Dr. Sandoval
Impression:
Acute hypoxic respiratory failure requiring intubation on 05/07/2024 - now extubated
Pulmonary edema
Acute heart failure with preserved ejection fraction, proBNP 7690
Abnormal troponin, suspect nonischemic myocardial injury secondary to above
DKA
MARTIN
Hypertension
Diabetes
Plan:
Pneumonia/acute hypoxic respiratory failure requiring intubation 05/07/2024
-Now extubated to supplemental O2 via NC.
-Management per pulmonary and primary
-Continue IV antibiotics
-Incentive spirometry, wean O2 as able
Acute heart failure with preserved ejection fraction
-Elevated proBNP 7690
-CXR with bilateral infiltrates c/w pulm edema
-She is diabetic and poorly controlled with HgbA1c of 11.1%
-I think she may benefit from eventual coronary angiography. I suspect multivessel CADz but hopefully will be wrong.
-Volume status appears to be improving with IV diuresis: Will change IV to PO furosemide
-Follow daily weights and Cr/electrolytes
-Cont spironolactone
-Will add Farxiga 10 mg 1 p.o. daily; consult case management
Hypertension with uncontrolled blood pressures
-Add Toprol-XL 25 mg daily. If blood pressure still elevated would increase losartan
-Abnormal troponin, peaked at 0.076.
I worry about multivessel CADz given poorly controlled DM.
Lean toward coronary angiography pre discharge
Continue aspirin 81 mg daily.
Restart atorvastatin for LDL 190mg/dl: Not sure if she was taking because of LDL being so high
-Type 2 diabetes mellitus, uncontrolled
Management per primary: HgbA1c was 11%
Dr. Herrera recommended Farxiga given DM and HF. Quite reasonable
HPI 05/07/2024:
Patient is a 64-year-old female with past medical history significant for diabetes and hypertension who presented to emergency department 05/06/2024 with fevers, chills and worsening cough. Patient was found to be hypoxic on arrival requiring mid
flow oxygen. She was found to have a fever of 101 on arrival. She tested negative for COVID and the flu. Chest x-ray with bilateral alveolar opacification. Pro-Moises elevated at 1.39. proBNP elevated at 7690. Abnormal troponin initially 0.052
and trending upward at time of this evaluation 0.076. EKG showed sinus tachycardia at 120 bpm without ischemic changes. Patient did receive a dose of IV Lasix in emergency department. Patient briefly required pressor now hypertensive. She
developed worsening hypoxemia requiring intubation on morning of 05/07/2024. She also got an additional 40 mg IV Lasix
Patient and her daughter have been dealing with upper respiratory symptoms for over a week. They were using [id number] cold and flu medication without improvement of symptoms. Patient's daughter reports she did see a tax commissioner in [place]
several years ago and was told she had no cardiac issues. Prior to her illness she was able to perform chores around the house and go up and down the stairs without cardiac symptoms.
History is limited given patient is currently intubated. Current information is obtained by review of prior medical records, coordinating providers and discussion with daughter.
Progress Note - Central Supply Technician
Subjective
Date of Service: May 15, 2024
Difficult to interact but patient is largely without complaints
Objective
Labs:
05/15/24 05:04
05/15/24 05:04
Labs
Hgb 9.6 g/dL (12.0-16.0) L 05/15/24 05:04
Hct 29.1 % (37.0-47.0) L 05/15/24 05:04
Plt Count 420 10^3/uL (130-400) H 05/15/24 05:04
PT 14.3 Sec (11.4-14.6) 05/07/24 04:34
INR 1.12 05/07/24 04:34
APTT 40.1 Sec (23.4-35.0) H 05/07/24 04:34
Sodium 139 mmol/L (135-145) 05/15/24 05:04
Potassium 4.5 mmol/L (3.5-5.1) 05/15/24 05:04
BUN 34 mg/dl (7-17) H 05/15/24 05:04
Creatinine 1.0 mg/dL (0.6-1.0) 05/15/24 05:04
Glucose 244 mg/dl (70-99) H 05/15/24 05:04
Vital Signs and I&O:
Vital Signs
Temp Pulse Resp BP Pulse Ox
98.7 F 89 19 126/80 94
05/15/24 11:20 05/15/24 10:00 05/15/24 10:00 05/15/24 10:00 05/15/24 10:00
Vital Signs
Temp Pulse Resp BP Pulse Ox
98.7 F 89 19 126/80 94
05/15/24 11:20 05/15/24 10:00 05/15/24 10:00 05/15/24 10:00 05/15/24 10:00
Intake & Output
05/12/24 05/13/24 05/14/24 05/15/24
23:59 23:59 23:59 23:59
Intake Total 610 / 610 360 / 360 480 / 480
Output Total 3015 / 3015 1450 / 1450 650 / 650
Balance -2405 / -2405 -1090 / -1090 -170 / -170
Physical Exam
Physical Exam
Gen: Awake, alert, interactive. NAD
HEENT: NC/AT, sclera anicteric
Lungs: Crackles at basel bilaterally
CV: RRR
Ext: No edema
[2024-05-15] MEDS: OCEAN, SALINE MIST 2 SPRAYS NASAL (12:37)
[2024-05-15] MEDS: NOVOLOG FLEXPEN-LOW RESISTANCE SC (12:42)
--- NOTE | 2024-05-15 12:50 | W.PN.HOSP.TC ---
Today's Communication/Plan
-
IV lasix
Cards recs
Wean o2 as tolerate
tx out of IMU
Assessment / Plan
Assessment / Plan
Physical Exam
General: no acute distress appears comfortable at this time
HEENT: NormoCephalic, Anicteric, Atraumatic, PERRLA
Respiratory: Clear on oxygen supplementation 2-3L
Cardiac: S1 S2 mild Tachy no murmurs rubs gallops
GI: Soft, Non Tender, Non Distended and decreased bowel sounds
Musculoskeletal: No Clubbing, No Cyanosis, no Edema
Skin: Warm
Neuro: Awake Alert Conversant Coherent appears more talkative/more positive mood compared to yesterday
Psych: Calm Flat affect
64 HTN DM with cough fevers chills and was found to be hypoxic on arrival requiring mid flow. She was febrile in the ED and x-ray shows bilateral infiltrates. Procalcitonin is elevated with associate mild MARTIN Cr 1.3. Negative COVID and flu test.
BNP elevated 7690. Troponin trended up 0.076. Admitted to ICU, patient progressively worsened overnight desaturating despite high flow nonrebreather increased work of breathing. Concern impending respiratory failure, Patient was subsequently
intubated overnight.
PLAN:
# Pneumonia - Multifocal Community acquired pneumonia w/ fever, cough, chills, hypoxia and pulmonary infiltrates. ?viral
#Septic Shock briefly required pressor overnight since weaned off
#Acute Metabolic Encephalopathy
#Acute Hypoxic Respiratory Failure
- Intubated overnight 05/06-05/07 impending respiratory failure. Extubated 05/10
- legionella strep ua neg, mrsa swab pending, blood cultures NGTD
- Cefepime 2g q8 switched to ceftriaxone 1g daily, doxycycline iv bid switched to oral w/ placement NGT, since discontinued consistently afebrile no leukocytosis monitoring off abx
- sputum culture takien during bronchoscopy with no growth. S/p bronch 05/07-no abnormalities found.
- CR chest appreciated acute pulm edema vs infectious
-Racecar Driver eval appreciated weaned off vent and sedation extubated as above
-Seroquel for agitation delirium tapered to 25 mg HSPRN agitation/insomnia, anticipate discontinuation prior to discharge depending on usage
-speech eval appreciated appropriate for regular diet w/ thin liquids and general aspiration precautions, NGT since discontinued
-Wean O2 supplementation as tolerated, Incentive Spirometer, not tolerating BIPAP bedtime. Improving in o2 requirement.
#Suspect new onset Heart Failure
# Pulm Edema
#Troponin elevation likely Non-ischemic Myocardial Injury
#No h/o CAD or CHF per family, was chest pain free per reports prior to intubation/sedation
- crp/esr elevated
- trop trended to peak 0.076 since trended down
- ECHO appreciated preserved EF 55-60% no significant valve abn's
- daily weights I/O
-Lemon for accurate I/O's discontinued, passed trial of void
-Cardio eval appreciated Lasix IV 40 mg BID, Aldactone added and titrated up to 50 mg daily, Losartan also added and titrated up to 50 mg daily
-cardiology planning for possible cardiac catherization if pt agrees. TBD.
#Mild MARTIN possibly cardiorenal
resolved following diuresis
cont monitoring renal function
#DKA - Initial Glucose 430, AG 19 bHB > 4. Reportedly on insulin lantus 30 hs and novolin 10 ac at home. pH is 7.39.
-anion gap and glucose since improved with insulin gtt switched to basal bolus
-cont insulin mgmt as per DM MINE FOREMAN
-DM MINE FOREMAN eval appreciated
-insulin regimen adjusted to to 4U AC and 16U HS
Hypertension Primary -elevated
-briefly treated with cardene gtt as per ICU since weaned off
-cont Lasix as above
-started on Coreg, Amlodipine, Losartan, Aldactone cont
-monitor and adjust antihypertensive regimen as necessary
#Iron Deficiency Anemia
#Anemia of Chronic disease
H&H stable/improving
B12 Folate non-deficient
Iron Studies appreciated as above
IV iron ordered, eventual transition to PO iron
PT/OT appreciated SNF rehab
DVT PPX - lovenox sq
Code status - full code
d/w with cardiology
Anticipated Discharge: > 48 hours
Subjective/Interval History
-
Date of Service: May 15, 2024
states of nasal congestion
Objective Data
-
Labs:
Laboratory Results
05/15/24
05:04
WBC 7.3
Hgb 9.6 L
Hct 29.1 L
Plt Count 420 H
Sodium 139
Potassium 4.5
Chloride 102
Carbon Dioxide 27
BUN 34 H
Creatinine 1.0
Glucose 244 H
Calcium 8.6
Vital Signs:
Vital Signs
Temp Pulse Resp BP Pulse Ox
98.7 F 89 19 126/80 94
05/15/24 11:20 05/15/24 10:00 05/15/24 10:00 05/15/24 10:00 05/15/24 10:00
I&O
05/14/24 05/15/24 05/16/24
06:59 06:59 06:59
Intake Total 360 / 360 480 / 480
Output Total 1650 / 1650
Balance -1290 / -1290 480 / 480
[2024-05-15 12:52] LABS: Glucose - Point of Care 145 mg/dl (70-99)
--- NOTE | 2024-05-15 13:28 | CM ---
Addendum entered by Fabiola Fernandez RN 05/15/24 15:19:
Spoke with daughters Kelsie and Cammy; informed the daughters that [facility] not [facility]. They both agree to [facility] as their next SNF preference. Daughter Cammy asking good questions about what services patient may need
after SNF, such as a caregiver. Provided phone # for [employer] for daughter to apply for the Waiver program.
Spoke with Toshia Cortes; she will review the referral and let CM know if she can accept.
Plan follow up with [facility].
Addendum entered by Fabiola Fernandez RN 05/15/24 13:55:
Received phone call from [facility]; they will not have an available bed.
Patient was accepted by [facility] in [facility]. [facility] and [facility] expressed interest.
Plan follow up with patient's daughter for alternate SNF preference.
Original Note:
Patient with Dx Acute hypoxic respiratory failure - extubated 05/07, PNA, HF, mild MARTIN, DKA, HTN, anemia. O2 2.5L. Receiving IV Fe Na Gluconate. PT 05/15; unsteady, recommends skilled vs HH. OT 05/11 recommends skilled rehab.
Message from Dr Horan; plan cardiac cath. Patient may be ready for d/c on 05/18.
Spoke with Toshia Gloria [facility]; she is reviewing the referral. Informed her that patient may be ready for d/c on 05/18.
Met with patient and son aGrett; provided update that [facility] is reviewing - acceptance is pending.
Plan follow up with [facility].
[2024-05-15] MEDS: FERRLECIT 110 MG IV (15:10)
[2024-05-15] MEDS: LASIX 40 MG PO (16:45)
--- NOTE | 2024-05-15 17:14 | PTCARENOTE ---
Addendum entered by Yudelka Keller RN 05/15/24 17:16:
Accu check done prior to transfer; however insulin not administered as patient only ordered oatmeal at this time and had not eaten. Tray sent with her on transfer. Daughter stated that patient would want tray ordered prior to 1830. Marge updated
in report.
Original Note:
Patient transferred to [facility] with belongings; report given to Marge NEWBERRY, including that patient is to have an accu check at 0300 as per Ileana Shetty. Patient's family notified earlier of transfer and given new room number.
[2024-05-15 17:19] LABS: Glucose - Point of Care 259 mg/dl (70-99)
[2024-05-15] MEDS: LIPITOR 80 MG PO (18:29)
[2024-05-15] MEDS: LOVENOX 40 MG SC (18:29)
[2024-05-15] MEDS: NOVOLOG FLEXPEN-LOW RESISTANCE 3 UNITS SC (18:31)
--- NOTE | 2024-05-15 18:37 | PTCARENOTE ---
Patient AAOx4, VSS, 2L NC in use. Patient has tele monitor in use. patient in NAD. call bolaños in reach. safety maintained.
[2024-05-15 22:24] LABS: Glucose - Point of Care 121 mg/dl (70-99)
[2024-05-15] MEDS: LANTUS 0.16 UNITS SC (22:28)
--- NOTE | 2024-05-15 23:13 | W.PN.UPDATE ---
Update Note
Progress Note Update
fall - patient unwitness fall. Patient AAOX3. Per patient she got out of bed trying to go to the bathroom and tripped. She reports she hit right side of her head on the closet door and right side of the thigh which are both sore. No ecchymosis or
swelling noted, no open wound noted. Nursing to continue to monitor. Tylenol for pain.
[2024-05-16] VITALS (14 sets, daily range): BP systolic 123–177; BP diastolic 64–104
--- NOTE | 2024-05-16 01:17 | FALL ---
Description of Fall: Pt found on floor on bottom. Pt states she got up to go to the bathroom and on her way back lost balance and fell. Pt denies loss of consciousness or dizziness. Pt does report hitting head on closet. Assisted back to bed, bed
alarm placed.
Injuries Noted: None
Action Taken: Bed alarm placed.
Name of Provider Notified: Amber Eubanks
[2024-05-16 03:11] LABS: Glucose - Point of Care 136 mg/dl (70-99)
[2024-05-16] MEDS: TYLENOL 650 MG PO (03:11)
[2024-05-16 04:14] LABS: Hematocrit 26.1 % (37.0-47.0); Hemoglobin 8.7 g/dL (12.0-16.0); Mean Corp Hgb Conc. 33.3 g/dL (33.0-37.0); Mean Corpuscular Hgb 27.6 pg (27.0-31.0); Mean Corpuscular Volume 82.9 fL (81.0-99.0); Platelet Count 429 10^3/uL (130-400); Red Blood Cell Count 3.15 10^6/uL (4.20-5.40); Red Cell Dist. Width 14.1 % (11.5-14.5); White Blood Cell Count 8.4 10^3/uL (4.8-10.8)
[2024-05-16 04:36] LABS: Blood Urea Nitrogen 32 mg/dl (7-17); Calcium 8.8 mg/dl (8.4-10.2); Carbon Dioxide 28 mmol/L (22-30); Chloride 102 mmol/L (98-107); Estimated Creatinine Clearance 49 ml/min; Glucose 134 mg/dl (70-99); Potassium 3.9 mmol/L (3.5-5.1); Sodium 139 mmol/L (135-145); eGFR > 60.00
[2024-05-16 07:41] LABS: Glucose - Point of Care 121 mg/dl (70-99)
[2024-05-16] MEDS: NOVOLOG FLEXPEN 4 UNITS SC (07:55)
[2024-05-16] MEDS: NOVOLOG FLEXPEN-LOW RESISTANCE SC ×3 (07:56→16:58)
[2024-05-16] MEDS: ALDACTONE 50 MG PO (07:56)
[2024-05-16] MEDS: ASPIR LOW (ENTERIC COATED) 81 MG PO (07:57)
[2024-05-16] MEDS: MUCINEX 600 MG PO ×2 (07:57→20:48)
[2024-05-16] MEDS: COREG 12.5 MG PO ×2 (07:57→20:48)
[2024-05-16] MEDS: FARXIGA 10 MG PO (07:57)
[2024-05-16] MEDS: NORVASC 10 MG PO (07:57)
[2024-05-16] MEDS: COZAAR 50 MG PO ×2 (07:58→20:49)
[2024-05-16] MEDS: LASIX 40 MG PO (07:58)
[2024-05-16] MEDS: PROTONIX 40 MG PO (07:58)
--- NOTE | 2024-05-16 08:16 | ITS.CL.CATH ---
Principle Industrial Hygienist - Catheterization
Cardiac Catheterization
Procedure Report:
LEFT HEART CATHETERIZATION
Date of Procedure: May 16, 2024
Referring: Darryl Guzman
PROCEDURES:
1. Left heart catheterization, coronary angiogram.
2. Ultrasound-guided access
INDICATION: Patient is a 64-year-old female with past medical history of hypertension, hyperlipidemia, insulin-dependent type 2 diabetes mellitus who presents with flash pulmonary edema and acute decompensated heart failure found to have mild
troponin elevation with peak troponin of 0.075 who is being referred for a coronary angiogram to rule out obstructive coronary artery disease.
ACCESS: Right radial artery, 6 Sami sheath, under ultrasound guidance
HEMODYNAMICS : (mmHg)
AO (s/d) : 130/80
LV (s/d) : 132/7
LVEDP : 11
CORONARY FINDINGS
DOMINANCE: Right
LEFT MAIN: The left main artery is a large-caliber vessel which gives rise to the left anterior descending artery and the left circumflex artery. There is minimal luminal irregularities.
LEFT ANTERIOR DESCENDING: The left anterior descending artery is a medium to large caliber vessel which gives rise to multiple small caliber diagonal branches as it courses to the anterior interventricular groove and wraps around the apex. Mid LAD
has 2 serial 30 to 40% stenoses.
CIRCUMFLEX: The left circumflex artery is a medium caliber vessel which gives rise to 2 major obtuse marginal branches. It is moderately tortuous. OM1 is a small caliber vessel with mild to moderate diffuse atherosclerotic plaque. OM 2 is a
medium caliber branching vessel with 30 to 40% stenosis in the midportion.
RIGHT CORONARY ARTERY: The right coronary artery is a small to medium caliber vessel which gives rise to the right posterior descending artery. It is moderately tortuous. There is 20 to 30% stenosis in the proximal portion.
SEDATION: 44 minutes of procedural sedation was utilized. An independent biomedical technician was present to assist with and help manage the patient's level of consciousness and physiologic status.
RADIATION SUMMARY: Fluoro Time (min): 9.0, Dose (mGy): 712.04, DAP (Gy.cm2) : 46.4
Closure Device: Vascular band over right radial artery, 9 cc of air.
CONCLUSIONS
1. Non-obstructive coronary artery disease.
2. Normal LVEDP at 11 mmHg.
RECOMMENDATIONS
1. Wean radial band per protocol.
2. Aggressive management of cardiovascular risk factors and goal-directed medical therapy for heart failure with preserved ejection fraction.
3. Outpatient referral for cardiac rehab.
Copy to: Darryl Guzman
Guadalupe Philip MD, FACC, [facility]
--- NOTE | 2024-05-16 08:26 | PN.DE.MGMTRT ---
Insulin Management
- -
05/16/2024: Diabetes Management Follow up:
Patient with w/hx of cough fevers and shortness of breath. PMH: HTN, IDDM. Patient with multifocal Community acquired pneumonia, respiratory failure. Was noted for Hyperglycemia with a glucose level of 430 and in DKA with a GAP of 19. DKA protocol
was initiated.
Prior to admission was taking Lantus 30 units and AC NovoLog 10 units, A1C 11.1%, cr 1.3, eGFR 45.92.
Pt awake, A/O x3, sitting up in bed, pleasant, able to discuss diabetes mgt.
05/09 Steroids stopped. Transitioned off drip to home dose Lantus 30 units, with NovoLog Q 6 hours and corrective insulin.
05/10 Extubated. 05/11 Tube feeds discontinued, started on diet. Noted for poor appetite.
05/14 lantus reduced from 30 units to 10 units, fasting glucose this AM 239. 05/15 Farxiga 10 mg daily has been started by cardiology.
05/15 HS lantus increased to 16 units and 3am glucose 136.
05/16 Fasting glucose 121. Will continue lantus 16 units with novolog 4 units AC and Farxiga 10 mg daily, with low corrective insulin. Patient NPO after breakfast for cardiac cath today. Will follow
05/11 Pt requested for refill of test strips to her Contour Next glucose meter. Rx sent to her pharmacy
Diabetes History
- -
Type of Diabetes: 2 requiring insulin
Pre-Admission Diabetes Regimen
05/16/24
03:48
Creatinine 1.0
Lab Results
Hemoglobin A1c 11.1 % (4.0-5.6) H 05/07/24 04:34
Insulin Pump Settings
IP Diabetes Regimen
05/15/24 05/15/24 05/15/24
12:41 17:07 22:18
Glucose
POC Glucose 145 H 259 H 121 H
05/16/24 05/16/2424
03:04 03:48 07:40
Glucose 134 H
POC Glucose 136 H 121 H
Meal type: Breakfast
Amount consumed: 75%
Patient Education
[2024-05-16 11:21] LABS: Glucose - Point of Care 90 mg/dl (70-99)
--- NOTE | 2024-05-16 11:46 | W.PN.HOSP.TC ---
Today's Communication/Plan
-
cardiac cath today
hold evening dose of lasix
wean o2 as tolerated
cont GDMT
Trend BMP
Assessment / Plan
Assessment / Plan
Physical Exam
General: no acute distress appears comfortable at this time
HEENT: NormoCephalic, Anicteric, Atraumatic, PERRLA
Respiratory: Clear on oxygen supplementation 2-3L
Cardiac: S1 S2 mild Tachy no murmurs rubs gallops
GI: Soft, Non Tender, Non Distended and decreased bowel sounds
Musculoskeletal: No Clubbing, No Cyanosis, no Edema
Skin: Warm
Neuro: Awake Alert Conversant Coherent appears more talkative/more positive mood compared to yesterday
Psych: Calm Flat affect
64 HTN DM with cough fevers chills and was found to be hypoxic on arrival requiring mid flow. She was febrile in the ED and x-ray shows bilateral infiltrates. Procalcitonin is elevated with associate mild MARTIN Cr 1.3. Negative COVID and flu test.
BNP elevated 7690. Troponin trended up 0.076. Admitted to ICU, patient progressively worsened overnight desaturating despite high flow nonrebreather increased work of breathing. Concern impending respiratory failure, Patient was subsequently
intubated overnight.
PLAN:
#Acute HFpEF
#Pulm Edema
#Troponin elevation likely Non-ischemic Myocardial Injury
#No h/o CAD or CHF per family, was chest pain free per reports prior to intubation/sedation
- trop trended to peak 0.076 since trended down
- ECHO appreciated preserved EF 55-60% no significant valve abn's
- daily weights I/O
-Lemon for accurate I/O's discontinued, passed trial of void
-Cardio eval appreciated Lasix IV 40 mg BID, Aldactone added and titrated up to 50 mg daily, Losartan also added and titrated up to 50 mg daily, Farxiga 10mg added,
-cardiology planning for Cardiac cath later today. Hold evening dose of lasix as plan for cath
#Mild MARTIN possibly cardiorenal
resolved following diuresis
cont monitoring renal function
#DKA - Initial Glucose 430, AG 19 bHB > 4. Reportedly on insulin lantus 30 hs and novolin 10 ac at home. pH is 7.39.
-anion gap and glucose since improved with insulin gtt switched to basal bolus
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
-insulin regimen adjusted to to 4U AC and 16U HS
# Pneumonia - Multifocal Community acquired pneumonia w/ fever, cough, chills, hypoxia and pulmonary infiltrates. ?viral
#Septic Shock briefly required pressor overnight since weaned off
#Acute Metabolic Encephalopathy
#Acute Hypoxic Respiratory Failure
- Intubated overnight 05/06-05/07 impending respiratory failure. Extubated 05/10
- legionella strep ua neg, mrsa swab pending, blood cultures NGTD
- Cefepime 2g q8 switched to ceftriaxone 1g daily, doxycycline iv bid switched to oral w/ placement NGT, since discontinued consistently afebrile no leukocytosis monitoring off abx
- sputum culture takien during bronchoscopy with no growth. S/p bronch 05/07-no abnormalities found.
- CR chest appreciated acute pulm edema vs infectious
-Seroquel for agitation delirium tapered to 25 mg HSPRN agitation/insomnia, anticipate discontinuation prior to discharge depending on usage
-Wean O2 supplementation as tolerated, Incentive Spirometer, not tolerating BIPAP bedtime. Improving in o2 requirement.
#Mechanical fall
Pt rushed to use bathroom
CT head checked and negative for acute pathology.
No headache/vision problems. moving all 4 extremities
Hypertension Primary -elevated
-briefly treated with cardene gtt as per ICU since weaned off
-cont Lasix as above
-started on Coreg, Amlodipine, Losartan, Aldactone cont
-monitor and adjust antihypertensive regimen as necessary
#Iron Deficiency Anemia
#Anemia of Chronic disease
H&H stable/improving
B12 Folate non-deficient
Iron Studies appreciated as above
IV iron ordered, eventual transition to PO iron
PT/OT appreciated SNF rehab
DVT PPX - lovenox sq
Code status - full code
d/w with cardiology
d/w with multiple daughters at bedsides
Anticipated Discharge: > 48 hours
Subjective/Interval History
-
Date of Service: May 16, 2024
Pt in good spirit with presence of family
had fall last night
denies chest pain or sob or headache or confusion
Objective Data
-
Labs:
Laboratory Results
05/16/24
03:48
WBC 8.4
Hgb 8.7 L
Hct 26.1 L
Plt Count 429 H
Sodium 139
Potassium 3.9
Chloride 102
Carbon Dioxide 28
BUN 32 H
Creatinine 1.0
Glucose 134 H
Calcium 8.8
Vital Signs:
Vital Signs
Temp Pulse Resp BP Pulse Ox
98.8 F 78 17 123/69 95
05/16/24 11:20 05/16/24 11:20 05/16/24 11:20 05/16/24 11:20 05/16/24 11:20
I&O
05/15/24 05/16/24 05/17/24
06:59 06:59 06:59
Intake Total 480 / 480 240 / 240
Balance 480 / 480 240 / 240
Data Reviewed
-
Total Time Spent with Patient (in minutes): 52
[2024-05-16] MEDS: NOVOLOG FLEXPEN SC ×2 (12:08→16:58)
[2024-05-16] MEDS: FERRLECIT 110 MG IV (13:12)
--- NOTE | 2024-05-16 15:31 | CM ---
Plan is for possible skilled at [facility] will need updated PT/OT notes, last note says skilled v's home. Fall today, will follow
Plan; To follow with patient progress and assist with discharge planning.
[2024-05-16 16:30] LABS: Glucose - Point of Care 100 mg/dl (70-99)
[2024-05-16] MEDS: NSS 500 IV (16:57)
[2024-05-16] MEDS: LOVENOX 40 MG SC (16:59)
[2024-05-16] MEDS: LIPITOR 80 MG PO (16:59)
[2024-05-16] MEDS: APRESOLINE 5 MG IV (17:37)
[2024-05-16 21:15] LABS: Glucose - Point of Care 146 mg/dl (70-99)
[2024-05-16] MEDS: LANTUS 0.16 UNITS SC (23:10)
[2024-05-17 03:23] LABS: Glucose - Point of Care 138 mg/dl (70-99)
[2024-05-17 03:30] VITALS: BP 157/88
[2024-05-17 04:29] LABS: % Basophils 0.7 % (0-2); % Eosinophils 5.7 % (0-6); % Immature Granulocytes 0.4 % (0-0.5); % Lymphocytes 22.8 % (20.5-51.1); % Monocytes 11.4 % (1.7-9.3); Absolute Basophils 0.1 10^3/uL (0-0.2); Absolute Eosinophils 0.4 10^3/uL (0-0.7); Absolute Lymphocytes 1.7 10^3/uL (1.2-3.4); Absolute Monocytes 0.9 10^3/uL (0.1-0.6); Absolute Neutrophils 4.5 10^3/uL (1.4-6.5); Hematocrit 28.3 % (37.0-47.0); Hemoglobin 9.5 g/dL (12.0-16.0); Mean Corp Hgb Conc. 33.6 g/dL (33.0-37.0); Mean Corpuscular Hgb 28.6 pg (27.0-31.0); Mean Corpuscular Volume 85.2 fL (81.0-99.0); Mean Platelet Volume 11.4 fL (7.4-10.4); Nucleated Red Blood Cells % 0 %; Platelet Count 453 10^3/uL (130-400); Red Blood Cell Count 3.32 10^6/uL (4.20-5.40); Red Cell Dist. Width 13.8 % (11.5-14.5); White Blood Cell Count 7.5 10^3/uL (4.8-10.8)
[2024-05-17 05:00] LABS: Blood Urea Nitrogen 27 mg/dl (7-17); Calcium 8.9 mg/dl (8.4-10.2); Carbon Dioxide 28 mmol/L (22-30); Chloride 100 mmol/L (98-107); Estimated Creatinine Clearance 49 ml/min; Glucose 119 mg/dl (70-99); Sodium 141 mmol/L (135-145); eGFR > 60.00
[2024-05-17 07:20] VITALS: BP 149/86
--- NOTE | 2024-05-17 08:04 | PN.DE.MGMTRT ---
Insulin Management
- -
05/17/2024: Diabetes Management Follow up:
Patient with w/hx of cough fevers and shortness of breath. PMH: HTN, IDDM. Patient with multifocal Community acquired pneumonia, respiratory failure. Was noted for Hyperglycemia with a glucose level of 430 and in DKA with a GAP of 19. DKA protocol
was initiated.
Prior to admission was taking Lantus 30 units and AC NovoLog 10 units, A1C 11.1%, cr 1.3, eGFR 45.92.
Pt awake, A/O x3, sitting up in bed, pleasant, able to discuss diabetes mgt.
05/09 Steroids stopped. Transitioned off drip to home dose Lantus 30 units, with NovoLog Q 6 hours and corrective insulin.
05/10 Extubated. 05/11 Tube feeds discontinued, started on diet. Noted for poor appetite.
05/14 lantus reduced from 30 units to 10 units, fasting glucose this AM 239. 05/15 Farxiga 10 mg daily has been started by cardiology.
05/15 HS lantus increased to 16 units and 3am glucose 136.
05/16 Fasting glucose 121. Will continue lantus 16 units with novolog 4 units AC and Farxiga 10 mg daily, with low corrective insulin. Patient NPO after breakfast for cardiac cath. Glucose range while NPO 90 to 146. Received 16 units lantus @ HS.
05/17 Cr 1, eGFR > 60, Fasting glucose 138. Will make no change to regimen today. Will follow
Diabetes History
- -
Type of Diabetes: 2 requiring insulin
Pre-Admission Diabetes Regimen
05/17/24
04:03
Creatinine 1.0
Lab Results
Hemoglobin A1c 11.1 % (4.0-5.6) H 05/07/24 04:34
Insulin Pump Settings
IP Diabetes Regimen
05/16/24 05/16/24 05/16/24
11:20 16:29 21:14
Glucose
POC Glucose 90 100 H 146 H
05/17/24 05/17/24
03:21 04:03
Glucose 119 H
POC Glucose 138 H
Meal type: Lunch
Meal type: Breakfast
Patient Education
[2024-05-17 08:19] LABS: Glucose - Point of Care 129 mg/dl (70-99)
[2024-05-17] MEDS: NOVOLOG FLEXPEN 4 UNITS SC ×2 (08:30→12:31)
[2024-05-17] MEDS: NOVOLOG FLEXPEN-LOW RESISTANCE SC (08:31)
[2024-05-17] MEDS: COREG 12.5 MG PO (08:34)
[2024-05-17] MEDS: ALDACTONE 50 MG PO (08:35)
[2024-05-17] MEDS: PROTONIX 40 MG PO (08:35)
[2024-05-17] MEDS: MUCINEX 600 MG PO (08:35)
[2024-05-17] MEDS: FARXIGA 10 MG PO (08:35)
[2024-05-17] MEDS: ASPIR LOW (ENTERIC COATED) 81 MG PO (08:35)
[2024-05-17] MEDS: COZAAR 50 MG PO (08:36)
[2024-05-17] MEDS: NORVASC 10 MG PO (08:36)
[2024-05-17] MEDS: LASIX 40 MG PO (08:36)
[2024-05-17 09:31] VITALS: BP 123/63; O2SAT 95
--- NOTE | 2024-05-17 11:00 | W.PN.CARDCBS ---
Today's Communication / Plan
-
Plan:
Acute heart failure with preserved ejection fraction
-Elevated proBNP 7690
-CXR with bilateral infiltrates c/w pulm edema
-She is diabetic and poorly controlled with HgbA1c of 11.1%
-Status post heart catheterization yesterday with non-obstructive coronary artery disease with plan for medical therapy.
-Continue with antihypertensive regimen and p.o. diuretic to maintain euvolemia. LVEDP at 11 mmHg yesterday post IV diuresis.
Persistently elevated blood pressures
-Will increase Coreg to 25 mg twice daily while continuing other medications with close outpatient follow-up.
Abnormal troponin, peaked at 0.076.
-Status post left heart catheterization yesterday with non-obstructive coronary artery disease with plan for medical therapy.
-Continue aspirin 81 mg daily.
-LDL significantly elevated at 190, continue atorvastatin 80 mg daily
Type 2 diabetes mellitus, uncontrolled
-Management per primary: HgbA1c was 11%
-Cont Farxiga, new this admission
-Pneumonia/acute hypoxic respiratory failure requiring intubation 05/07/2024
-Management per pulmonary and primary
Stable for discharge from a cardiac standpoint.
Impression / Plan
-
Family Physician: Yenifer Trent
Adz Worker: Initial consult Dr. Sandoval
Impression:
Acute hypoxic respiratory failure requiring intubation on 05/07/2024 - now extubated
Pulmonary edema
Acute heart failure with preserved ejection fraction, proBNP 7690
Abnormal troponin, suspect nonischemic myocardial injury secondary to above
DKA
MARTIN
Hypertension
Diabetes
Plan:
Acute heart failure with preserved ejection fraction
-Elevated proBNP 7690
-CXR with bilateral infiltrates c/w pulm edema
-She is diabetic and poorly controlled with HgbA1c of 11.1%
-Status post heart catheterization yesterday with non-obstructive coronary artery disease with plan for medical therapy.
-Continue with antihypertensive regimen and p.o. diuretic to maintain euvolemia. LVEDP at 11 mmHg yesterday post IV diuresis.
Persistently elevated blood pressures
-Will increase Coreg to 25 mg twice daily while continuing other medications with close outpatient follow-up.
Abnormal troponin, peaked at 0.076.
-Status post left heart catheterization yesterday with non-obstructive coronary artery disease with plan for medical therapy.
-Continue aspirin 81 mg daily.
-LDL significantly elevated at 190, continue atorvastatin 80 mg daily
Type 2 diabetes mellitus, uncontrolled
-Management per primary: HgbA1c was 11%
-Cont Farxiga, new this admission
-Pneumonia/acute hypoxic respiratory failure requiring intubation 05/07/2024
-Management per pulmonary and primary
Stable for discharge from a cardiac standpoint.
HPI 05/07/2024:
Patient is a 64-year-old female with past medical history significant for diabetes and hypertension who presented to emergency department 05/06/2024 with fevers, chills and worsening cough. Patient was found to be hypoxic on arrival requiring mid
flow oxygen. She was found to have a fever of 101 on arrival. She tested negative for COVID and the flu. Chest x-ray with bilateral alveolar opacification. Pro-Moises elevated at 1.39. proBNP elevated at 7690. Abnormal troponin initially 0.052
and trending upward at time of this evaluation 0.076. EKG showed sinus tachycardia at 120 bpm without ischemic changes. Patient did receive a dose of IV Lasix in emergency department. Patient briefly required pressor now hypertensive. She
developed worsening hypoxemia requiring intubation on morning of 05/07/2024. She also got an additional 40 mg IV Lasix
Patient and her daughter have been dealing with upper respiratory symptoms for over a week. They were using [id number] cold and flu medication without improvement of symptoms. Patient's daughter reports she did see a head soft sugar operator in [place]
several years ago and was told she had no cardiac issues. Prior to her illness she was able to perform chores around the house and go up and down the stairs without cardiac symptoms.
History is limited given patient is currently intubated. Current information is obtained by review of prior medical records, coordinating providers and discussion with daughter.
Progress Note - Adz Worker
Subjective
Date of Service: May 17, 2024
No overnight events
Objective
Labs:
05/17/24 04:03
05/17/24 04:03
Labs
Hgb 9.5 g/dL (12.0-16.0) L 05/17/24 04:03
Hct 28.3 % (37.0-47.0) L 05/17/24 04:03
Plt Count 453 10^3/uL (130-400) H 05/17/24 04:03
PT 14.3 Sec (11.4-14.6) 05/07/24 04:34
INR 1.12 05/07/24 04:34
APTT 40.1 Sec (23.4-35.0) H 05/07/24 04:34
Sodium 141 mmol/L (135-145) 05/17/24 04:03
Potassium 4.0 mmol/L (3.5-5.1) 05/17/24 04:03
BUN 27 mg/dl (7-17) H 05/17/24 04:03
Creatinine 1.0 mg/dL (0.6-1.0) 05/17/24 04:03
Glucose 119 mg/dl (70-99) H 05/17/24 04:03
Vital Signs and I&O:
Vital Signs
Temp Pulse Resp BP Pulse Ox
98.5 F 90 16 149/86 93
05/17/24 07:20 05/17/24 07:20 05/17/24 07:20 05/17/24 07:20 05/17/24 07:20
Vital Signs
Temp Pulse Resp BP Pulse Ox
98.5 F 90 16 149/86 93
05/17/24 07:20 05/17/24 07:20 05/17/24 07:20 05/17/24 07:20 05/17/24 07:20
Intake & Output
05/15/24 05/16/24 05/17/24 05/18/24
06:59 06:59 06:59 06:59
Intake Total 480 / 480 240 / 240 360 / 360 740 / 740
Balance 480 / 480 240 / 240 360 / 360 740 / 740
Physical Exam
Physical Exam
Gen: Awake, alert, flat affects NAD
HEENT: NC/AT, sclera anicteric
Lungs: Reduced BS at bases
CV: RRR
Ext: No edema
[2024-05-17 11:10] VITALS: BP 139/95
--- NOTE | 2024-05-17 11:23 | CM ---
Chart reviewed and protective services case worker spoke with patient and daughter this am, and reached out to physical therapy and plan is to home when stable with visiting nurses, visiting nurse options reviewed with patient and patient has selected [facility]
liaison contacted, home oxygen evaluation needs to be completed patient is currently off oxygen, and prescription for a walker has been provided to PT.
Plan; Home with [facility].
--- NOTE | 2024-05-17 11:31 | RESPNOTE ---
Patient did the walk on room air and kept the SpO2 92-90 during ambulation and at rest. But she need assistance to walk, like a walker.
[2024-05-17 11:48] LABS: Glucose - Point of Care 202 mg/dl (70-99)
--- NOTE | 2024-05-17 12:23 | W.PN.HOSP.TC ---
Addendum entered and electronically signed by Ganga Horan MD 05/17/24 12:28:
Of note patient did well with physical therapy and now recommendation for home health. Not SNF.
Original Note:
Today's Communication/Plan
-
GDMT
Cards recs
home today
Assessment / Plan
Assessment / Plan
Physical Exam
General: no acute distress appears comfortable at this time
HEENT: NormoCephalic, Anicteric, Atraumatic, PERRLA
Respiratory: Clear
Cardiac: S1 S2 mild Tachy no murmurs rubs gallops
GI: Soft, Non Tender, Non Distended and decreased bowel sounds
Musculoskeletal: No Clubbing, No Cyanosis, no Edema
Skin: Warm
Neuro: Awake Alert Conversant Coherent appears more talkative/more positive mood compared to yesterday
Psych: Calm Flat affect
64 HTN DM with cough fevers chills and was found to be hypoxic on arrival requiring mid flow. She was febrile in the ED and x-ray shows bilateral infiltrates. Procalcitonin is elevated with associate mild MARTIN Cr 1.3. Negative COVID and flu test.
BNP elevated 7690. Troponin trended up 0.076. Admitted to ICU, patient progressively worsened overnight desaturating despite high flow nonrebreather increased work of breathing. Concern impending respiratory failure, Patient was subsequently
intubated overnight.
PLAN:
#Acute HFpEF
#Pulm Edema
#Troponin elevation likely Non-ischemic Myocardial Injury
#No h/o CAD or CHF per family, was chest pain free per reports prior to intubation/sedation
- trop trended to peak 0.076 since trended down
- ECHO appreciated preserved EF 55-60% no significant valve abn's
- daily weights I/O
-Lemon for accurate I/O's discontinued, passed trial of void
-S/p 40 mg of IV Lasix twice daily. Now transition to 40 mg p.o. daily., Aldactone added and titrated up to 50 mg daily, Losartan also added and titrated up to 50 mg daily, Farxiga 10mg added,
-Status post cardiac catheterization with nonobstructive coronary artery disease.
#Mild MARTIN possibly cardiorenal
resolved following diuresis
cont monitoring renal function
#DKA - Initial Glucose 430, AG 19 bHB > 4. Reportedly on insulin lantus 30 hs and novolin 10 ac at home. pH is 7.39.
-anion gap and glucose since improved with insulin gtt switched to basal bolus
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
-insulin regimen adjusted to to 4U AC and 16U HS
# Pneumonia - Multifocal Community acquired pneumonia w/ fever, cough, chills, hypoxia and pulmonary infiltrates. ?viral
#Septic Shock briefly required pressor overnight since weaned off
#Acute Metabolic Encephalopathy
#Acute Hypoxic Respiratory Failure- stable on room air .Did not qualify for home oxygne.
- Intubated overnight 05/06-05/07 impending respiratory failure. Extubated 05/10
- legionella strep ua neg, mrsa swab pending, blood cultures NGTD
- Cefepime 2g q8 switched to ceftriaxone 1g daily, doxycycline iv bid switched to oral w/ placement NGT, since discontinued consistently afebrile no leukocytosis monitoring off abx
- sputum culture takien during bronchoscopy with no growth. S/p bronch 05/07-no abnormalities found.
- CR chest appreciated acute pulm edema vs infectious
-Seroquel for agitation delirium tapered to 25 mg HSPRN agitation/insomnia, anticipate discontinuation prior to discharge depending on usage
-Wean O2 supplementation as tolerated, Incentive Spirometer, not tolerating BIPAP bedtime. Improving in o2 requirement.
#Mechanical fall
Pt rushed to use bathroom
CT head checked and negative for acute pathology.
No headache/vision problems. moving all 4 extremities
Hypertension Primary -elevated
-briefly treated with cardene gtt as per ICU since weaned off
-cont Lasix as above
-started on Coreg, Amlodipine, Losartan, Aldactone cont
-monitor and adjust antihypertensive regimen as necessary
#Iron Deficiency Anemia
#Anemia of Chronic disease
H&H stable/improving
B12 Folate non-deficient
Iron Studies appreciated as above
IV iron ordered, eventual transition to PO iron
PT/OT appreciated SNF rehab
DVT PPX - lovenox sq
Code status - full code
d/w with multiple daughters at bedside on 05/16
Dispo-home
More than 30 minutes spent in discharge including
Final examination of the patient
Summarizing hospital stay
Instructions for continuing care to all relevant caregivers
Preparation of discharge records, prescriptions, and referral forms
Total time spent (in minutes): 53
Anticipated Discharge: Today
Subjective/Interval History
-
Date of Service: May 17, 2024
on room air
denies cp or sob.
Objective Data
-
Labs:
Laboratory Results
05/17/24
04:03
WBC 7.5
Hgb 9.5 L
Hct 28.3 L
Plt Count 453 H
Sodium 141
Potassium 4.0
Chloride 100
Carbon Dioxide 28
BUN 27 H
Creatinine 1.0
Glucose 119 H
Calcium 8.9
Vital Signs:
Vital Signs
Temp Pulse Resp BP Pulse Ox
98.3 F 86 16 139/95 93
05/17/24 11:10 05/17/24 11:10 05/17/24 11:10 05/17/24 11:10 05/17/24 11:10
I&O
05/16/24 05/17/24 05/18/24
06:59 06:59 06:59
Intake Total 240 / 240 360 / 360 740 / 740
Balance 240 / 240 360 / 360 740 / 740
--- NOTE | 2024-05-17 12:31 | W.DCSUMMARY ---
Discharge Summary
Discharge Data
Date of Admission: 05/06/24
Date of Discharge: 05/17/24
-
Pending Results: No
Hospital Course
64 female past medical history of insulin-dependent diabetes mellitus, hyperlipidemia, primary hypertension, anemia of chronic disease, iron deficiency anemia p/w with cough fevers chills and was found to be hypoxic on arrival requiring mid flow.
She was febrile in the ED and x-ray shows bilateral infiltrates. Procalcitonin is elevated with associate mild MARTIN Cr 1.3. Negative COVID and flu test. BNP elevated 7690. Troponin trended up 0.076. Admitted to ICU, patient progressively
worsened desaturating despite high flow nonrebreather increased work of breathing. Concern impending respiratory failure, Patient was subsequently intubated. Client Coordinator and cardiology was consulted. Patient anion gap and glucose improved on
insulin drip. Subsequently patient was extubated. Patient was started on broad-spectrum antibiotics initially. Patient underwent bronchoscopy and bronc results was negative for bacterial growth. Antibiotics were discontinued. Patient continued
to remain afebrile. Patient was started on Seroquel for agitation which was transitioned to 25 mg nightly as needed. Patient mentation significantly improved and further medication was not required. Patient postextubation with persistent
hypoxemia and oxygen level was slowly down trended. Per cardiology patient was started on aggressive IV Lasix for diuresis. Echocardiogram with EF of 55 to 60% with no significant valve abnormality. Patient was on goal-directed medical therapy
with Aldactone and losartan. Farxiga was started. IV Lasix was transitioned to p.o. 40 mg Lasix on discharge. Patient MARTIN resolved with diuresis. Patient underwent cardiac catheterization which found nonobstructive coronary artery disease. Plan
will be to continue with aggressive prophylactic medical therapy and outpatient cardiology follow-up.
Discharge Plan
-
Patient Disposition: Home with Home Care
Discharge Diagnosis/Procedures: Acute HFpEF
Pulmonary edema
Nonischemic myocardial injury
Acute kidney injury
Diabetic ketoacidosis
Multifocal community volume pneumonia
Septic shock
Acute metabolic encephalopathy
Acute hypoxic respiratory failure
Mechanical fall
Primary hypertension
Iron deficiency anemia
Condition: Fair
Diet: 2 Gram Sodium, Diabetic, Carb Controlled and Restrict fluids to 48 oz
Activity: With assistance and As tolerated
Driving Restrictions: As prior to admission
Other Services: VN
Specialty Instructions: Weigh Daily- Call MD for wt gain/loss 3 lbs overnight/5 lbs in 1 week
Referrals:
Lilian Hobbs PA-C [Specified Professional Personl] - 05/30/24 12:40 pm (You have a cardiology follow-up appointment at the [place] office. Please call with questions)
Yenifer Trent MD [Family Provider] - in less than 1 week
Prescriptions:
New
(DME) Contour Next Test Strips Strip
Qty: 150 0RF
Rx Instructions:
Pt Testing 4 times a day
losartan [Cozaar] 50 mg tablet
50 mg PO BID 30 Days Qty: 60 0RF
dapagliflozin propanediol [Farxiga] 10 mg tablet
10 mg PO DAILY 30 Days Qty: 30 0RF
furosemide 40 mg Tablet
40 mg PO DAILY 30 Days Qty: 30 0RF
spironolactone 50 mg Tablet
50 mg PO DAILY 30 Days Qty: 30 0RF
carvedilol [Coreg] 25 mg tablet
25 mg PO BID 30 Days Qty: 60 0RF
Continued
atorvastatin 80 mg Tablet
80 mg PO DAILY
aspirin 81 mg Tablet,Delayed Release (Dr/Ec)
81 mg PO DAILY
omeprazole 20 mg Tablet,Delayed Release (Dr/Ec)
20 mg PO DAILY
amlodipine 10 mg Tablet
10 mg PO DAILY
Changed
insulin aspart U-100 [Novolog FlexPen U-100 Insulin] 100 unit/mL (3 mL) Insulin Pen
4 unit SC AC Qty: 0 0RF
insulin glargine [Lantus Solostar U-100 Insulin] 100 unit/mL (3 mL) Insulin Pen
16 unit SC HS Qty: 0 0RF
Discontinued
lisinopril 20 mg Tablet
10 - 20 mg PO DAILY
Patient Comments:
BOTTLE CONTAINED BOTH 10MG AND 20MG TABS
pioglitazone 15 mg Tablet
15 mg PO DAILY
Discharge Orders:
Discharge Patient (As Directed); Ordered 05/17/24
Ordered By: Ganga Horan
Discharge Date and Time
Print Language: UKRAINIAN
[2024-05-17] MEDS: NOVOLOG FLEXPEN-LOW RESISTANCE 300 UNITS SC (12:32)
--- NOTE | 2024-05-17 12:47 | VNURNOTE ---
Home Health Liaison met with patient at bedside to discuss [facility] nurse/therapy, visits, schedule and homebound status. Patient is agreeable and understands that visits at home will be 2-3 x per week to assess and teach medical management. Patient
lives w/her daughters. [facility] brochure provided with contact information. Patient is aware that [facility] will contact them for start of care in 1-2 days after discharge from .
[facility] referral completed in Care Port.
[2024-05-17 13:35] VITALS: BP 123/63
[2024-05-17] MEDS: COREG 25 MG PO (13:40)
--- NOTE | 2024-05-17 14:07 | CM ---
Chart reviewed and plan is to home with [facility] and walker, patient does not require oxygen at discharge.
Plan; Home with [facility], family to transport.
== END 2024-05-17 14:42 | disposition home health service (06) | DRG 871 ==
LOC: 4 WEST ACU 21:45
PROVIDERS: Internal Medicine; Internal Medicine Cardiovascular Disease; Internal Medicine Interventional Cardiology; Nurse Anesthetist, Certified Registered; Nurse Practitioner Family; Nurse Practitioner Primary Care; Physician Assistant; ADMITTING PHYSICIAN Internal Medicine; ATTENDING PHYSICIAN Hospitalist; CONSULT PHYSICIAN Nuclear Medicine Nuclear Cardiology; EMERGENCY PHYSICIAN Emergency Medicine; FAMILY PHYSICIAN Family Medicine; OTHER PHYSICIAN Internal Medicine
PROC: 5A0935A Assistance with Respiratory Ventilation, Less than 24 Consecutive Hours, High Flow/Velocity Cannula (ICD-10-PCS; 2024-05-06)
PROC: 5A1945Z Respiratory Ventilation, 24-96 Consecutive Hours (ICD-10-PCS; 2024-05-07)
PROC: 0B9F8ZX Drainage of Right Lower Lung Lobe, Via Natural or Artificial Opening Endoscopic, Diagnostic (ICD-10-PCS; 2024-05-07)
PROC: 0B9J8ZX Drainage of Left Lower Lung Lobe, Via Natural or Artificial Opening Endoscopic, Diagnostic (ICD-10-PCS; 2024-05-07)
PROC: 0BH17EZ Insertion of Endotracheal Airway into Trachea, Via Natural or Artificial Opening (ICD-10-PCS; 2024-05-07)
PROC: 4A023N7 Measurement of Cardiac Sampling and Pressure, Left Heart, Percutaneous Approach (ICD-10-PCS; 2024-05-16)
PROC: B2111ZZ Fluoroscopy of Multiple Coronary Arteries using Low Osmolar Contrast (ICD-10-PCS; 2024-05-16)
DX: A41.9 Sepsis, unspecified organism (principal); E11.10 Type 2 diabetes mellitus with ketoacidosis without coma; G93.41 Metabolic encephalopathy; I50.31 Acute diastolic (congestive) heart failure; J18.9 Pneumonia, unspecified organism; J80 Acute respiratory distress syndrome; R65.21 Severe sepsis with septic shock; I5A Non-ischemic myocardial injury (non-traumatic); N17.9 Acute kidney failure, unspecified; J98.11 Atelectasis; D63.8 Anemia in other chronic diseases classified elsewhere; I11.0 Hypertensive heart disease with heart failure; D50.9 Iron deficiency anemia, unspecified; E78.5 Hyperlipidemia, unspecified; I25.10 Atherosclerotic heart disease of native coronary artery without angina pectoris; K21.9 Gastro-esophageal reflux disease without esophagitis; W19.XXXA Unspecified fall, initial encounter; Z91.119 Patient's noncompliance with dietary regimen due to unspecified reason; Z91.148 Patient's other noncompliance with medication regimen for other reason; Z79.4 Long term (current) use of insulin; Z79.82 Long term (current) use of aspirin; Z79.84 Long term (current) use of oral hypoglycemic drugs
CPT/HCPCS: 36600; 70450; 71045; 71046; 74018; 80048; 80053; 80061; 82010; 82330; 82607; 82746; 82805; 82962; 83036; 83516; 83540; 83550; 83605; 83735; 83880; 84100; 84132; 84145; 84302; 84443; 84478; 84484; 85014; 85018; 85025; 85027; 85610; 85652; 85730; 86038; 86140; 86225; 86430; 86803; 87040; 87070; 87102; 87205; 87449; 87502; 87811; 87899; 90686; 92526; 92610; 93005; 93306; 93458; 94002; 94003; 94660; 96361; 96374; 97116; 97163; 97167; 97530; 97535; 99152; 99153; 99291; 99292; C1894; G0008; J2916; Q9967